=== PATIENT | female | born 1965 | race Caucasian/White ===

== ENCOUNTER 2023-11-23 18:34 | Emergency (ER) | payer OTHER, SELFPAY ==
[2023-11-23] VITALS (13 sets, daily range): BP systolic 135–159; BP diastolic 89–103; PULSE 84–98; RESP 11–29; TEMP 37.2; O2SAT 98–100
--- NOTE | ~2023-11-23 | XR_ITS ---
XR chest 2V Ordering provider: Carli May MD History: 58 years Female with . chest pain . Comparison: None. FINDINGS: MEDIASTINUM: The cardiac silhouette is not enlarged. LUNGS: No infiltrates, effusions or pneumothorax. OTHER: No free air under the diaphragm. Status post cholecystectomy. IMPRESSION: No acute cardiopulmonary pathology. Reviewed, dictated and finalized at location A.
--- NOTE | 2023-11-23 18:35 | ECG_ITS ---
[facility] [address] Test Date: 2023-11-23 Pat Name: Alycia Welch Department: Room: Gender: F Evaluation Manager: : 1965 Requested By: Carli Luoie Order Number: [id number] Linh MD: Ginna Blair M.D. Measurements Intervals [place] Rate: 86 P: 43 IA: 174 QRS: -2 QRSD: 81 T: 40 QT: 352 QTc: 423 Interpretive Statements SINUS RHYTHM No previous ECG available for comparison Electronically Signed On 11-24-2023 13:35:47 CDT by Ginna Blair M.D.
--- NOTE | 2023-11-23 18:37 | ED.CHESTPAIN ---
HPI - Chest Pain General Chief Complaint: Chest Pain Stated Complaint: chest pain Time Seen by Provider: 11/23/23 18:37 Source: patient and family Mode of arrival: ambulatory Limitations: no limitations History of Present Illness HPI narrative: Patient presents with left sided chest pain and shortness of breath occurring last night. Patient states over the past day the pain got better. Both arms were hurting and then just the left arm. She took Tylenol but it didn't help. She describes it as a heaviness. No family history of PA <65 yo. Occasionally smoked in her 20s but not since. No diagnosis of HLD; takes a statin for a diagnosis of fatty liver. She does not know if she was diaphoretic as she is perimenopausal and often has these flashes. No cough or fever. At home her BP was as high as the 150s/100s. She is not on medication for hypertension. She has had a mild headache; it was more severe 3 weeks ago. 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 No LE edema. Related Data Allergies Allergy/AdvReac Type Severity Reaction Status Date / Time latex AdvReac Mild Rash Verified 11/23/23 18:44 [facility] Past Medical History Medical History (Updated 11/25/23 @ 10:55 by Carli May MD) Fatty liver Prediabetes diet controlled Family History Family History (Updated 11/25/23 @ 10:57 by Carli May MD) Sibling Pulmonary embolism Sibling Pulmonary embolism Father Hypertension Social History Social History (Updated 11/25/23 @ 10:55 by Carli May MD) Smoking status: Former smoker Additional smoking assessment comments: light, occasionally while in her 20s Exam Narrative: GENERAL: Well-appearing, well-nourished, and in no acute distress. HEAD: Normocephalic, atraumatic. EYES: Non injected, non icteric ENT: Nares clear, no rhinorrhea or epistaxis. NECK: Supple. CHEST: Speaking in full sentences. No respiratory distress. Lungs clear to auscultation bilaterally. HEART: Regular rate and rhythm. . ABDOMEN: Soft, nondistended. EXTREMITIES: Normal range of motion. No lower extremity edema. SKIN: Warm, dry, no rash. NEURO: No focal deficits. Alert and oriented x3. PSYCH: Normal mood and affect. Course Vital Signs Vital signs: Vital Signs Temperature 99 F 11/23/23 18:37 Pulse Rate 86 11/23/23 18:37 Respiratory Rate 16 11/23/23 18:37 Blood Pressure 159/103 H 11/23/23 18:37 Pulse Oximetry 100 11/23/23 18:37 Oxygen Delivery Room Air 11/23/23 18:37 Temperature 99 F 11/23/23 18:37 Pulse Rate 90 11/23/23 20:25 Respiratory Rate 18 11/23/23 20:25 Blood Pressure 138/89 11/23/23 20:25 Pulse Oximetry 99 11/23/23 20:25 Oxygen Delivery Room Air 11/23/23 18:45 MDM - Chest Pain MDM Narrative Medical decision making narrative: Patient presents with CP and SOB. In the ED she if afebrile with VS notable for HTN. Symptoms have been going on since last night so will not need to obtain 2 troponins. HEART SCORE History 2 highly suspicious 1 moderately suspicious 0 slightly suspicious History score [address] depression/elevation not due to LBBB, LVH, or digoxin [address] depression but LBBB, LVH, nonspecific repolarization changes 0 normal ECG score 0 Age 2 >/= 65 1 45-64 0 <45 Age score 1 Risk factors (HTN, hypercholesterolemia, DM, obesity with BMI >30, current smoker or cessation </=3mo), positive fam hx with parent or sibling with CVD before age 65, atherosclerotic disease (prior PA, PCI/CABG, CVA/TIA, or peripheral arterial disease) 2 >/= 3 risk factors or history of atherosclerotic dz 1 - 1-2 risk factors (HTN) 0 no known risk factors Risk factor score 1 Initial Troponin 2 >3 times normal limit 1 1-3 times normal limit 0 less than or equal to normal limit Troponin score 0 Total HEART Score 3 HTN resolves.
[2023-11-23 18:54] LABS: Basophils Percent Auto 0.6 % (0.2-1.2); Eosinophils Absolute Auto 0.1 K/mm3 (0-0.3); Eosinophils Percent Auto 2.5 % (0-4.4); Hematocrit 38.5 % (37.0-47.0); Hemoglobin 12.5 g/dL (12.0-15.0); Immature Granulocyte Absolute 0.02 K/mm3 (0.00-0.031); Immature Granulocyte Percent A 0.4 % (0-0.5); Lymphocytes Absolute Auto 2.75 K/mm3 (0.9-3.2); Lymphocytes Percent Auto 52.8 % (18.3-44.2); Mean Corpuscular HGB Conc 32.5 g/dl (32-36); Mean Corpuscular Hemoglobin 30.3 pg (26-34); Mean Corpuscular Volume 93.4 fl (80-100); Mean Platelet Volume 9.1 fl (7.4-10.4); Monocytes Absolute Auto 0.7 K/mm3 (0.1-0.6); Monocytes Percent Auto 13.1 % (2.6-8.5); Neutrophils Absolute Auto 1.6 K/mm3 (1.3-6.7); Neutrophils Percent Auto 30.6 % (45.5-73.1); Platelet Count Result 257 k/mm3 (150-375); Red Blood Count 4.12 M/mm3 (4.2-5.4); Red Cell Distribution Width 12.5 % (11.5-14.5); White Blood Count 5.2 K/mm3 (4.5-10.0)
[2023-11-23 19:05] LABS: Alanine Aminotransferase 10 U/L (6-35); Albumin Level 4.6 g/dL (3.5-5.1); Alkaline Phosphatase 63 U/L (38-126); Anion Gap 6 mmol/L (4-12); Aspartate Amino Transferase 23 U/L (14-36); Bilirubin,Total 0.6 mg/dL (0.2-1.3); Blood Urea Nitrogen 22 mg/dL (7-17); Calcium 8.7 mg/dL (8.4-10.2); Carbon Dioxide 28 mmol/L (22-30); Chloride 106 mmol/L (98-107); Estimated CRCL calculation 52 ml/min; Estimated Glomerular Filt Rate > 60; Glucose 100 mg/dL (65-110); Lipase 130 U/L (23-300); Potassium 3.7 mmol/L (3.4-5.0); Sodium 140 mmol/L (137-145)
[2023-11-23 19:17] LABS: Troponin I < 0.012 ng/mL (0.000-0.034)
[2023-11-23 19:22] LABS: INR 1.1; Prothrombin Time 14.6 Seconds (11.1-14.7)
[2023-11-23 19:23] LABS: Partial Thromboplastin Time 23.1 Seconds (22.3-36.8)
[2023-11-23] MEDS: ACETAMINOPHEN 500 MG TABLET 1000 MG PO (19:35)
[2023-11-23 19:37] LABS: D Dimer 0.28 ug/mL (<0.48)
== END 2023-11-23 20:27 | disposition home or self-care (01) ==
PROVIDERS: Emergency Provider Student in an Organized Health Care Education/Training Program
DX: R07.9 Chest pain, unspecified (principal)
CPT/HCPCS: 36415; 71046; 80053; 83690; 84484; 85025; 85380; 85610; 85730; 93005; 99284; A9270

== ENCOUNTER 2024-01-21 18:17 | Emergency (ER) | payer OTHER, SELFPAY ==
[2024-01-21] VITALS (11 sets, daily range): BP systolic 108–125; BP diastolic 79–83; PULSE 92–108; RESP 10–23; TEMP 37.2; O2SAT 95–100
--- NOTE | ~2024-01-21 | XR_ITS ---
XR chest 2V DATE: 01/21/2024 19:39 INDICATION: Cough, fever, congestion TECHNIQUE: PA and lateral views COMPARISON: 11/23/2023 PA and lateral chest FINDINGS: Normal heart size. No hilar or mediastinal enlargement. No pulmonary infiltrate or consolid ation, pleural effusion or pulmonary vascular congestion or pneumothorax is detected. Minimal thoracic dextroscoliosis. Status post cholecystectomy. IMPRESSION: No active cardiopulmonary disease Reviewed, dictated and finalized at location J.
--- NOTE | 2024-01-21 19:12 | ECG_ITS ---
Test Date: 2024-01-21 19:49:49 Measurements Intervals [place] Rate: 97 P: 38 NV: 175 QRS: 1 QRSD: 79 T: 34 QT: 336 QTc: 428 Interpretive Statements SINUS RHYTHM NORMAL ELECTROCARDIOGRAM Compared to ECG 11/23/2023 18:42:45 No significant changes Electronically Signed On 01-22-2024 09:02:06 CDT by Jose Villeda M.D.
--- NOTE | 2024-01-21 19:19 | PC.NURSE ---
Report received from MALACHI Lynn. Assumed care of patient at this time.
[2024-01-21 19:28] LABS: Hematocrit 38.3 % (37.0-47.0); Hemoglobin 12.5 g/dL (12.0-15.0); Mean Corpuscular HGB Conc 32.6 g/dl (32-36); Mean Corpuscular Hemoglobin 30.9 pg (26-34); Mean Corpuscular Volume 94.8 fl (80-100); Mean Platelet Volume 9.3 fl (7.4-10.4); Platelet Count Result 219 k/mm3 (150-375); Red Blood Count 4.04 M/mm3 (4.2-5.4); Red Cell Distribution Width 13.1 % (11.5-14.5)
--- NOTE | 2024-01-21 19:37 | ED.GENADULT ---
HPI - General Adult General Chief complaint: Fever Stated complaint: fever Time Seen by Provider: 01/21/24 18:54 History of Present Illness HPI narrative: Alycia Welch is a 58 y/o female who presents with reports of having fever/ nasal congestion/ productive cough / chest pain with cough / headache for the past 2-3 days She states she had body aches and had a hard time sleeping last night Related Data Allergies Allergy/AdvReac Type Severity Reaction Status Date / Time latex AdvReac Mild Rash Verified 01/21/24 20:45 Review of Systems Review of Systems: All systems reviewed & are unremarkable except as noted in HPI and below PMFSH Past Medical History Medical History Fatty liver Prediabetes diet controlled Family History Family History Sibling Pulmonary embolism Sibling Pulmonary embolism Father Hypertension Social History Social History Smoking status: Former smoker Additional smoking assessment comments: light, occasionally while in her 20s Exam Narrative: GENERAL: Well-appearing, well-nourished, and in no acute distress. HEAD: Normocephalic, atraumatic. EYES: PERRLA and EOMI. ENT: Nares clear, no rhinorrhea or epistaxis. Mucous membranes moist. NECK: Supple. No adenopathy or masses. No carotid bruits or JVD CHEST: Clear to auscultation. No respiratory distress. No wheezes rales or rhonchi HEART: Regular rate and rhythm. No murmur heard. Normal peripheral pulses. ABDOMEN: Soft, nontender, nondistended, normal active bowel sounds. EXTREMITIES: Normal range of motion. No edema. SKIN: Warm, dry, no rash. NEURO: No focal deficits. Alert and oriented x3. PSYCH: Normal mood and affect. Course Vital Signs Vital signs: Vital Signs Temperature 37.2 C 01/21/24 18:21 Pulse Rate 98 01/21/24 18:21 Respiratory Rate 16 01/21/24 18:21 Blood Pressure 125/81 01/21/24 18:21 Pulse Oximetry 100 01/21/24 18:21 Temperature 37.2 C 01/21/24 18:21 Pulse Rate 101 H 01/21/24 20:44 Respiratory Rate 23 H 01/21/24 20:44 Blood Pressure 120/79 01/21/24 20:44 Pulse Oximetry 100 01/21/24 20:44 Medical Decision Making [facility] Narrative Medical decision making narrative: 58 y/o presents wtih URI symptoms of fever/ headache/ cough/ nasal congestion / body aches for the past 2-3 days Concern for : pneumonia/ cardiac ischemia / dehydration / Viral syndrome Plan to check labs/ uri swabs / ekg / trop/ chest xr and treat her with IV fluids Toradol/ Tylenol CBC - WBC 4.0 CMP- BUN 21, Calcium 8.3 UA- Glucose 3+, Ketones trace, Blood 2+ URI swab- COVID Positive Trop- Negative EKG- Sinus rhythm Chest xr - No active cardiopulmonary disease Patient re-evaluted and feeling better updated on results of being Covid + Plan to d/c home with symptomatic treatment Tylenol/ Motrin Push oral hydration Rest Follow up with PCP in 1 week Strict return precautions provided. Medical Records Medical records reviewed: Yes I reviewed the external patient's medical records. Vital Signs Vital Signs: Vital Signs Temperature 37.2 C 01/21/24 18:21 Pulse Rate 98 01/21/24 18:21 Respiratory Rate 16 01/21/24 18:21 Blood Pressure 125/81 01/21/24 18:21 Pulse Oximetry 100 01/21/24 18:21 Temperature 37.2 C 01/21/24 18:21 Pulse Rate 101 H 01/21/24 20:44 Respiratory Rate 23 H 01/21/24 20:44 Blood Pressure 120/79 01/21/24 20:44 Pulse Oximetry 100 01/21/24 20:44 Vitals reviewed by me. Lab Data Lab results reviewed: Yes I reviewed the patient's lab results. 01/21/24 19:19 01/21/24 19:19 Labs: Lab Results 01/21/24 01/21/24 01/21/24 Range/Units 19:18 19:19 19:19 WBC 4.0 L (4.5-10.0) K/mm3 RBC 4.04 L (4.2-5.4) M/mm3 Hgb 12.5 (12.0-15.0) g/
[2024-01-21 19:38] LABS: Alanine Aminotransferase 13 U/L (6-35); Albumin Level 4.5 g/dL (3.5-5.1); Alkaline Phosphatase 70 U/L (38-126); Anion Gap 11 mmol/L (4-12); Aspartate Amino Transferase 30 U/L (14-36); Bilirubin,Total 0.6 mg/dL (0.2-1.3); Blood Urea Nitrogen 21 mg/dL (7-17); Calcium 8.3 mg/dL (8.4-10.2); Carbon Dioxide 23 mmol/L (22-30); Chloride 103 mmol/L (98-107); Estimated CRCL calculation 45 ml/min; Estimated Glomerular Filt Rate > 60; Glucose 76 mg/dL (65-110); Potassium 3.9 mmol/L (3.4-5.0); Sodium 137 mmol/L (137-145)
[2024-01-21 19:48] LABS: Band Neutrophils Percent 1 % (0-6); Eosinophils Absolute Manual 0.08 K/mm3 (0.02-0.50); Eosinophils Percent Manual 2 % (0-4); Lymphocytes Absolute Manual 1.52 K/mm3 (1.1-4.5); Monocytes Percent Manual 15 % (3-9); Neutrophils Percent Manual 44 % (46-73); Platelet Estimate Adequate (Adequate); Schistocytes None Seen; Total Cells Counted 100
[2024-01-21 19:50] LABS: Troponin I < 0.012 ng/mL (0.000-0.034)
[2024-01-21 19:58] LABS: Add Urine Microscopic? YES; Appearance Urine Clear (Clear); Bacteria Urine None Seen /hpf; Bilirubin Urine Negative (Negative); Blood Urine 2+ (Negative); Color Urine Yellow (Yellow); Glucose Urine UA 3+ mg/dL (Negative); Ketones Urine Trace mg/dL (Negative); Leukocyte Esterase Ur Negative LEU/UL (Negative); Nitrate Urine Negative (Negative); Non Pathogenic Casts 0-2; Protein Urine Negative (Negative); Specific Grav Ur 1.014 (1.001-1.035); Squamous Epithelial Cell Urine None Seen /hpf (Few); Urobilinogen Urine 0.2 mg/dL (<2.0); WBC Urine 0-5 /hpf (0-3)
[2024-01-21 20:04] LABS: Influenza A QL RT-PCR Negative (Negative); Influenza B QL RT-PCR Negative (Negative); RSV RNA, RT-PCR Negative (Negative); SARS-CoV-2 RNA PCR Positive (Negative)
[2024-01-21] MEDS: SODIUM CHLORIDE 0.9% IV 1,000 ML 999 ML IV CONT (20:43)
[2024-01-21] MEDS: ACETAMINOPHEN 500 MG TABLET 1000 MG PO (20:44)
[2024-01-21] MEDS: KETOROLAC 30 MG/ML VIAL (*BKC) IV PUSH (20:44)
== END 2024-01-21 22:40 | disposition home or self-care (01) ==
PROVIDERS: Emergency Medicine; Emergency Provider Nurse Practitioner Family
DX: U07.1 COVID-19 (principal); R73.03 Prediabetes; Z87.891 Personal history of nicotine dependence
CPT/HCPCS: 36415; 71046; 80053; 81001; 84484; 85025; 87637; 93005; 96361; 96374; 99284; A9270; J1885; J7030

== ENCOUNTER 2024-02-20 00:02 | Emergency (ER) | payer OTHER, SELFPAY ==
--- NOTE | ~2024-02-20 | CT_ITS ---
Non-contrast CT scan of the Abdomen and Pelvis Clinical indication: Right flank pain Technique: 2.5 mm axial scans were obtained through the abdomen and pelvis without intravenous or or al contrast. Dose reduction technique was used on this scan by utilizing automated exposure control a nd iterative reconstruction technique. The dose-length product (DLP) was 209.49 mGy-cm. Findings: Images through the lung bases reveal no abnormalities. There is no evidence of renal or ureteral calculi. The kidneys and the ureters are nondilated. There is a 1.3 cm exophytic lesion at the left upper renal pole (axial image 63), indeterminate. The liver, spleen, pancreas, and adrenals appear normal. Cholecystectomy clips are present. There is no aortic aneurysm. There is no evidence of bowel obstruction. Images through the pelvis were performed. There is no evidence of ascites or lymphadenopathy. Urinary bladder unremarkable. 2.5 cm left ovarian cyst present. No other adnexal mass seen. Impression: 2.5 cm left ovarian cyst. 1.3 cm exophytic medial left upper pole renal lesion, indeterminate by Hounsfield units. Recommend ul trasound or MR to evaluate for cystic versus small solid lesion. Reviewed, dictated and finalized at [facility]. Impression: 2.5 cm left ovarian cyst. 1.3 cm exophytic medial left upper pole renal lesion, indeterminate by Hounsfie ld units. Recommend ultrasound or MR to evaluate for cystic versus small solid lesion.
[2024-02-20 00:25] VITALS: BP 119/88; PULSE 87; RESP 20; TEMP 36.7; O2SAT 95
--- NOTE | 2024-02-20 00:39 | ECG_ITS ---
Test Date: 2024-02-20 01:38:47 Measurements Intervals [place] Rate: 61 P: 50 WV: 210 QRS: -1 QRSD: 80 T: 39 QT: 416 QTc: 419 Interpretive Statements SINUS RHYTHM WITH FIRST DEGREE AV BLOCK VOLTAGE CRITERIA FOR LVH BORDERLINE ECG Compared to ECG 01/21/2024 19:49:49 First degree AV block now present Electronically Signed On 02-20-2024 07:39:28 CDT by Frankie Morgan D.O.
[2024-02-20] MEDS: ONDANSETRON INJ 4 MG/2 ML VIAL IV PUSH (00:53)
[2024-02-20] MEDS: HYDROmorphone HCL INJ (*CRX) 1 MG/ML SYR 0.5 MG IV PUSH (00:53)
[2024-02-20] MEDS: KETOROLAC 15 MG/ML VIAL (*BKC) IV PUSH (00:53)
[2024-02-20] MEDS: SODIUM CHLORIDE 0.9% IV 1,000 ML 999 ML IV CONT (00:53)
[2024-02-20 01:02] LABS: Basophils Absolute Auto 0.1 K/mm3 (0.0-0.1); Eosinophils Absolute Auto 0.3 K/mm3 (0-0.3); Eosinophils Percent Auto 4.8 % (0-4.4); Hematocrit 38.2 % (37.0-47.0); Hemoglobin 12.6 g/dL (12.0-15.0); Immature Granulocyte Absolute 0.01 K/mm3 (0.00-0.031); Immature Granulocyte Percent A 0.2 % (0-0.5); Lymphocytes Absolute Auto 3.14 K/mm3 (0.9-3.2); Mean Corpuscular Volume 93.9 fl (80-100); Mean Platelet Volume 9.2 fl (7.4-10.4); Monocytes Absolute Auto 0.6 K/mm3 (0.1-0.6); Monocytes Percent Auto 12.2 % (2.6-8.5); Neutrophils Absolute Auto 1.1 K/mm3 (1.3-6.7); Neutrophils Percent Auto 21.8 % (45.5-73.1); Platelet Count Result 256 k/mm3 (150-375); Red Blood Count 4.07 M/mm3 (4.2-5.4); Red Cell Distribution Width 13.2 % (11.5-14.5); White Blood Count 5.2 K/mm3 (4.5-10.0)
[2024-02-20 01:13] LABS: Alanine Aminotransferase 11 U/L (6-35); Albumin Level 4.3 g/dL (3.5-5.1); Alkaline Phosphatase 81 U/L (38-126); Anion Gap 9 mmol/L (4-12); Aspartate Amino Transferase 27 U/L (14-36); Bilirubin,Total 0.3 mg/dL (0.2-1.3); Blood Urea Nitrogen 27 mg/dL (7-17); Calcium 9.3 mg/dL (8.4-10.2); Carbon Dioxide 27 mmol/L (22-30); Chloride 103 mmol/L (98-107); Estimated CRCL calculation 45 ml/min; Estimated Glomerular Filt Rate > 60; Glucose 98 mg/dL (65-110); Lipase 214 U/L (23-300); Potassium 3.6 mmol/L (3.4-5.0); Sodium 139 mmol/L (137-145)
[2024-02-20 03:22] LABS: Bacteria Urine None Seen /hpf; Non Pathogenic Casts 0-2; Squamous Epithelial Cell Urine None Seen /hpf (Few); WBC Urine 0-5 /hpf (0-3)
[2024-02-20 03:30] LABS: Add Urine Microscopic? YES; Appearance Urine Clear (Clear); Color Urine Yellow (Yellow); pH Urine 6.5 (5.0-9.0)
[2024-02-20 03:31] LABS: Bilirubin Urine Negative (Negative); Blood Urine 1+ (Negative); Glucose Urine UA 3+ mg/dL (Negative); Ketones Urine Trace mg/dL (Negative); Nitrate Urine Negative (Negative); Protein Urine Negative (Negative); Urobilinogen Urine 0.2 mg/dL (<2.0)
[2024-02-20 03:32] LABS: Leukocyte Esterase Ur Negative LEU/UL (Negative)
--- NOTE | 2024-02-20 03:44 | ED.GENADULT ---
HPI - General Adult General Chief complaint: Urogenital-Female Stated complaint: RIGHT FLANK PAIN Time Seen by Provider: 02/20/24 00:09 History of Present Illness HPI narrative: This is a 58-year-old female presenting ED with chief complaint of right flank pain. Starting yesterday the patient developed a sharp 10 out 10 crampy pain on right side. It comes for several seconds at a time and then relaxes. She has never had pain like this before and there are no alleviating or exacerbating factors. It is associated with nausea but no vomiting. She believes that she has had some dysuria but is unsure. She denies fevers chills chest pain difficulty breathing or abdominal pain. No vaginal bleeding or rectal bleeding. Related Data Allergies Allergy/AdvReac Type Severity Reaction Status Date / Time latex AdvReac Mild Rash Verified 02/20/24 00:34 [facility] Past Medical History Medical History Fatty liver Prediabetes diet controlled Family History Family History Sibling Pulmonary embolism Sibling Pulmonary embolism Father Hypertension Social History Social History Smoking status: Former smoker Additional smoking assessment comments: light, occasionally while in her 20s Exam Narrative: APPEARANCE: No apparent distress. Head: atraumatic. EYES: EOMI, NOSE: Atraumatic NECK: Trachea midline RESPIRATORY: No increased rate of breathing CTAB CARDIOVASCULAR: RRR, ABDOMINAL: Non-distended Soft nontender no guarding or rebound no CVA tenderness MUSCULOSKELETAl: No obvious deformities NEURO: Alert. Moving 4/4 extremities SKIN:: Warm, dry. Normal color PSYCHIATRIC: Normal affect Course Vital Signs Vital signs: Vital Signs Temperature 98.1 F 02/20/24 00:25 Pulse Rate 87 02/20/24 00:25 Respiratory Rate 20 02/20/24 00:25 Blood Pressure 119/88 02/20/24 00:25 Pulse Oximetry 95 02/20/24 00:25 Oxygen Delivery Room Air 02/20/24 00:25 Temperature 98.1 F 02/20/24 00:25 Pulse Rate 87 02/20/24 00:25 Respiratory Rate 20 02/20/24 00:25 Blood Pressure 119/88 02/20/24 00:25 Pulse Oximetry 95 02/20/24 00:25 Oxygen Delivery Room Air 02/20/24 00:25 Medical Decision Making MDM Narrative Medical decision making narrative: -Course: 58-year-old female presenting with intermittent right flank pain. Workup here was unremarkable outside of some minor blood in her urine. When the patient urinated here she believes that she passed a kidney stone. Since then she has been pain-free. This time patient be discharged home with pain medication. Given return precautions and primary care follow-up. -DDX includes but is not limited to: Kidney stone, muscle spasm, appendicitis, colitis, gastroenteritis, cholecystitis -Co-morbidities complicating care: Pro, prediabetes -Independent interpretation of studies: CT unremarkable laboratory studies reviewed urine with 6-5 red blood cells -Interventions: Toradol, Dilaudid, Zofran, normal saline -Shared decision making / Disposition: discharge -RX Motrin Tylenol Vital Signs Vital Signs: Vital Signs Temperature 98.1 F 02/20/24 00:25 Pulse Rate 87 02/20/24 00:25 Respiratory Rate 20 02/20/24 00:25 Blood Pressure 119/88 02/20/24 00:25 Pulse Oximetry 95 02/20/24 00:25 Oxygen Delivery Room Air 02/20/24 00:25 Temperature 98.1 F 02/20/24 00:25 Pulse Rate 87 02/20/24 00:25 Respiratory Rate 20 02/20/24 00:25 Blood Pressure 119/88 02/20/24 00:25 Pulse Oximetry 95 02/20/24 00:25 Oxygen Delivery Room Air 02/20/24 00:25 Lab Data 02/20/24 00:56 02/20/24 00:56 Labs: Lab Results 02/20/24 02/20/24 Range/Units 00:56 03:04 WBC 5.2 (4.5-10.0) K/mm3 RBC 4.07 L (4.2-5.4) M/mm3 Hgb 12.6 (12.
[2024-02-20 04:04] VITALS: BP 128/74; PULSE 81; RESP 15; O2SAT 100
== END 2024-02-20 04:05 | disposition home or self-care (01) ==
PROVIDERS: Emergency Provider Emergency Medicine
DX: R10.9 Unspecified abdominal pain (principal); Z87.891 Personal history of nicotine dependence
CPT/HCPCS: 36415; 74176; 80053; 81001; 83690; 85025; 93005; 96361; 96374; 96375; 99284; J1170; J1885; J2405; J7030

== ENCOUNTER 2024-08-04 11:33 | Emergency (ER) | payer OTHER, SELFPAY ==
--- NOTE | ~2024-08-04 | CT_ITS ---
CLINICAL INDICATION: Fall COMPARISON: 02/20/2024. TECHNIQUE: An enhanced CT of the abdomen and pelvis was performed utilizing multislice spiral [employer] ue reconstructed at 5 mm slice thickness. Coronal and sagittal reconstructions were performed. This CT examination was performed utilizing dose reduction techniques. DLP: 407 mGy-cm FINDINGS/OBSERVATIONS: Lung: The lungs are clear. The heart is of normal size, without pericardial effusion. Mediastinum: No pathologically enlarged or morphologically suspicious lymph nodes are identified within the spinal , bilateral axilla, within the soft tissues of the anterior chest wall. Soft tissues of the chest: Unremarkable. Bones of the chest: No acute fracture. No lytic or blastic lesions are identified. Liver: The liver enhances homogeneously and is not enlarged measuring 16 cm in longitudinal dimension. Gallbladder and biliary system: The gallbladder is surgically absent Pancreas: The pancreas enhances homogeneously, without ductal dilatation. Spleen: The spleen enhances homogeneously and is not enlarged measuring 4 cm in longitudinal dimensio n. Kidneys: The bilateral kidneys enhance symmetrically without hydronephrosis or renal calculi. Adrenal glands: Unremarkable. Gastrointestinal tract: Fecal stasis within the colon Appendix: The air-filled appendix is of normal caliber (axial series, images 174 through 186). Vasculature: No calcified atherosclerotic disease is present. No aneurysmal dilatation. Lymph nodes: Scattered nonpathologically enlarged lymph nodes within the root of the mesentery and deep in the pel vis. Pelvic structures: The bladder is minimally distended and otherwise unremarkable. The uterus is anteverted and anteflexed, and otherwise unremarkable. Body wall and musculoskeletal: No significant degenerative disease within the thoracic or lumbosacral spines. IMPRESSION: No cross-sectional imaging evidence to suggest the presence of acute traumatic injury. Reviewed, dictated and finalized at location A. IFIED NOVELL ADMINISTRATOR
--- NOTE | ~2024-08-04 | CT_ITS ---
EXAMINATION: CT brain wo con DATE: 08/04/2024 14:06 INDICATION: Trauma TECHNIQUE: Computed tomography (CT) of the head was performed without intravenous contrast. Sagittal and coronal reconstructions were performed. The mA was adjusted according to patient size. Iterative reconstruction technique was employed. The dose-length product was 605.33 mGy-cm. COMPARISON: None FINDINGS: No fracture. No acute intracranial hemorrhage, acute infarction or abnormal extra axial fluid collect ion. Ventricles are normal and symmetric. No mass/mass effect. The orbits, paranasal sinuses and mast oid air cells are normal. IMPRESSION: 1. Normal brain. No fracture or acute intracranial process. Reviewed, dictated and finalized at location A. LANCE DATA ENTRY
--- NOTE | ~2024-08-04 | CT_ITS ---
History: Fall PROCEDURE: CT cervical spine without intravenous contrast. COMPARISON: None TECHNIQUE: Multiple contiguous axial images of the cervical spine were performed without the administration of i ntravenous contrast. DLP: 133 mGy-cm FINDINGS: Straightening and slight reversal of the normal curvature of the cervical spine is identified, likely muscular in origin. No acute fractures are present. The bilateral lung apices are unremarkable. No soft tissue abnormality is present. The airway is patent. Impression: Straightening and slight reversal of the normal curvature of the cervical spine, likely muscular in o rigin. No acute fracture. Reviewed, dictated and finalized at location A. RAL PRE ARRANGEMENT SPECIALIST Impression: Straightening and slight reversal of the normal curvature of the cervical spine , likely muscular in origin. No acute fracture.
--- OUTSIDE RECORDS SUMMARY | 2024-08-04 11:34 | XMS_ITS | Data Portability ---
Author Organization [place] - [facility] [employer] Address [address] [place] [address] Assessment Encounter Date Assessment Date Assessment LastModified by Organization Details LastModified Time 07/18/2023 07/18/2023 BSE reviewed and recommended . Reviewed calcium needs, exercise, and prevention of osteoporosis . Reviewed menopausal signs and symptoms.Mammog alvaro recommended yearly . Reviewed that Colonoscopy recommended at age 50 or sooner with risk factors and then periodically thereafter [email or web address] Not available 07/11/2023 10:10:37 Plan of Treatment Reminders Order Date Submit Date Provider Last Modified By Organization Details Last Modified Time Details Appointments ANNUAL PM HEAD COOK 2024 01:30P M Mala Bills MD Not available Not available Not available Lab prolacti n, serum 2023 024 [email or web address] [facility] ([facility]) , [address], [place], [address], 08/10/2023 16:13:57 unlisted lab - nipple discharg e smear 2023 024 [facility] ([facility]) , [address], [place], [address], 08/15/2023 15:48:00 unlisted lab - nipple discharg e smear 2023 024 [facility] ([facility]) , [address], [place], [address], 08/15/2023 15:48:02 pap, LB + HR HPV + reflex HPV (16+18) 2023 024 CHRISTEN Not available 07/20/2023 18:10:56 BMP, serum or plasma 2023 024 [email or web address] 3 [facility] ([facility]) , [address], [place], [address], 07/25/2023 09:06:27 vitamin D, 25-hydro xy, total, serum 2023 024 [email or web address] 3 [facility] ([facility]) , [address], [place], [address], 07/25/2023 09:06:27 calcium, serum or plasma 2023 024 [email or web address] 3 [facility] ([facility]) , [address], [place], [address], 07/25/2023 09:06:28 glycohem oglobin, total, blood 2023 024 [email or web address] 3 [facility] ([facility]), [address], [place], [address], 07/25/2023 09:06:29 progeste karena, serum 2023 024 [email or web address] 3 [facility] ([facility]) , [address], [place], [address], 07/25/2023 09:06:28 hepatic function panel, serum 2023 024 [email or web address] 3 [facility] ([facility]) , [address], [place], [address], 07/25/2023 09:06:28 lipid panel, serum 2023 024 [email or web address] 3 [facility] ([facility]) , [address], [place], [address], 07/25/2023 09:06:28 CBC 2023 024 [email or web address] 3 [facility] ([facility]) , [address], [place], [address], 07/25/2023 09:06:28 FSH (follicl e-stimul ating hormone) , serum 2023 024 [email or web address] ([facility]) , [address], [place], [address], 07/25/2023 09:06:29 estradio l, serum 2023 024 [facility] 3 [facility] ([facility]) , [address], [place], [address], 07/25/2023 09:06:29 testoste karena, free + total, serum 2023 024 [email or web address] 3 [facility] ([facility]), [address], [place], [address], 07/25/2023 09:06:29 dihydrot estoster one (dht), serum 2023 024 [email or web address] 3 [facility] ([facility]), [address], [place], [address], 07/25/2023 09:06:29 Referral None recorded . Procedures None recorded . Surgeries None recorded . Imaging US, breast - bilatera l nipple d/c and breast tenderne ss 2023 024 [email or web address] [facility], [address] [place], [address], 10/25/2023 10:39:14 MAMMO, diagnost ic, tomosynt hesis, bilatera l - bilatera l nipple d/c and breast tenderne ss 2023 024 [email or web address] [facility], [address] [place], [address], 10/11/2023 16:26:13 US, transvag inal 2023 024 [email or web address] 10 Main Office, [address] [place] [address] , [place], [address], 07/21/2023 09:28:54 MAMMO, screenin g, tomosynt hesis, bilatera l - evaluate and treat protocol [address] (Mammography) , [address], [place], [address], 07/26/2023 07:05:25 US, breast, bilatera l - R92.2 dense breast tissue [address] (Mammography) , [address], [place], [address], 07/26/2023 07:05:25 bone density [address] [facility], [address] [place] [address], [address], 11/23/2023 08:44:44 US, pelvis 2022 023 [email or web address] 10 Main Office, [address], [place], [address], 09/16/2022 22:42:50 US, pelvis 2022 023 CHRISTEN Main Office, [address], [place], [address], 07/19/2022 09:42:14 Medication Orders Intraros a 6.5 mg vaginal insert 2023 024 [id number], [address], [place], [address], 07/18/2023 16:35:56 EstroGel 1.25 gram/act uation (0.06%) transder mal gel pump 2023 024 CHRISTEN [facility] In [facility], [facility], [place], [address], 08/10/2023 11:34:48 progeste karena microniz ed 200 mg capsule 2023 024 [facility] In [facility], [address], [place], [address], 07/18/2023 16:35:57 sildenaf il 25 mg tablet 2023 024 [facility] [id number] In [facility], [address], [place], [address], 07/18/2023 16:35:57 Patient TargetsNo targets recorded. Patient Instructions Encounter Date Encounter Id Patient Instructions Last Modified By Organization Details Last Modified Time 07/18/2023 [id number] prediabetes: instrucciones de cuidado - [prediabetes: care instructions] [email or web address] Not available 07/18/2023 16:35:47 Disminuci n de la libido femenina: Instrucciones de cuidado - [Decreased Female Libido: Care Instructions] [email or web address] Not available 07/18/2023 16:35:47 Put results on m y desk. [email or web address] Not available 07/18/2023 16:42:32 Reason for Referral None Reported. Results Created Date Observation Date Name Description Value Unit Range Abnormal Flag Note LastModifiedBy Organization Detail LastModifiedTime 07/14/19 23 07/15/2022 LIPID SCREE N (BASI C LIPID PROFI LE) cholesterol 215 mg/dL <200 high Not Available [facility] [employer] ([facility]) [address], [place], [address], 07/16/2022 00:42:51 07/14/19 23 07/15/2022 LIPID SCREE N (BASI C LIPID PROFI LE) HDL chol., direct 64 mg/dL >50 Not Available [facility] ([facility]) [address], [place], [address], 07/16/2022 00:42:51 07/14/19 23 07/15/2022 LIPID SCREE N (BASI C LIPID PROFI LE) triglyceride s 169 mg/dL <150 high Not Available [facility] [employer] ([facility]) [address], [place], [address], 07/16/2022 00:42:51 07/14/19 23 07/15/2022 LIPID SCREE N (BASI C LIPID PROFI LE) HDL % of cholesterol 30 % >14 Evalu ation : BELOW AVERA GE RISK Not Available [facility] ([facility] [employer]) [address], [place], [address], 07/16/2022 00:42:51 07/14/19 23 07/15/2022 LIPID SCREE N (BASI C LIPID PROFI LE) chol/HDL ratio 3.4 <5.8 Evalu ation : BELOW AVERA GE RISK Not Available [facility] [employer] ([facility] [employer]) [address], [place], [address], 07/16/2022 00:42:51 07/14/19 23 07/15/2022 LIPID SCREE N (BASI C LIPID PROFI LE) LDL/HDL ratio 1.83 <3.56 Not Available [facility] ([facility]) [address], [place], [address], 07/16/2022 00:42:51 07/14/19 23 07/15/2022 LIPID SCREE N (BASI C LIPID PROFI LE) LDL cholesterol 117 mg/dL <100 high Not Available [facility] ([facility]) [address], [place], [address], 07/16/2022 00:42:51 07/14/19 23 07/15/2022 LIPID SCREE N (BASI C LIPID PROFI LE) VLDL, calculated 34 mg/dL 7-32 high Not Available [facility] ([facility]) [address], [place], [address], 07/16/2022 00:42:51 07/14/19 23 07/15/2022 LIPID SCREE N (BASI C LIPID PROFI LE) non-HDL cholesterol 151 mg/dL <130 high Not Available [facility] ([facility]) [address], [place], [address], 07/16/2022 00:42:51 07/14/19 23 07/15/2022 CALCI UM, SERUM calcium 9.5 mg/dL 8.6-10 .4 Not Available [facility] ([facility]) [address], [place], [address], 07/16/2022 00:42:51 07/14/19 23 07/15/2022 CBC W/DIF F, PLATE LET CT. WBC 4.20 x10(3 )/uL 4.00-1 0.10 Not Available [facility] ([facility]) [address], [place], [address], 07/16/2022 00:42:52 07/14/19 23 07/15/2022 CBC W/DIF F, PLATE LET CT. RBC 4.23 x10(6 )/uL 3.58-5 .19 Not Available [facility] ([facility]) [address], [place], [address], 07/16/2022 00:42:52 07/14/19 23 07/15/2022 CBC W/DIF F, PLATE LET CT. HGB 13.1 g/dL 11.0-1 5.5 Not Available [facility] ([facility]) [address], [place], [address], 07/16/2022 00:42:52 07/14/19 23 07/15/2022 CBC W/DIF F, PLATE LET CT. HCT 39.4 % 31.5-4 4.8 Not Available [facility] ([facility]) [address], [place], [address], 07/16/2022 00:42:52 07/14/19 23 07/15/2022 CBC W/DIF F, PLATE LET CT. MCV 93.1 fL 78.0-9 8.0 Not Available [facility]) [address], [place], [address], 07/16/2022 00:42:52 07/14/19 23 07/15/2022 CBC W/DIF F, PLATE LET CT. MCH 31.0 pg 25.2-3 2.6 Not Available [facility] ([facility]) [address], [place], [address], 07/16/2022 00:42:52 07/14/19 23 07/15/2022 CBC W/DIF F, PLATE LET CT. MCHC 33.2 g/dL 31.0-3 4.7 Not Available [facility] ([facility]) [address], [place], [address], 07/16/2022 00:42:52 07/14/19 23 07/15/2022 CBC W/DIF F, PLATE LET CT. RDW 12.5 % 12.0-1 5.5 Not Available [facility] ([facility]) [address], [place], [address], 07/16/2022 00:42:52 07/14/19 23 07/15/2022 CBC W/DIF F, PLATE LET CT. polys 28.9 % 37.1-7 8.1 low Not Available [facility] ([facility]) [address], [place], [address], 07/16/2022 00:42:52 07/14/19 23 07/15/2022 CBC W/DIF F, PLATE LET CT. lymphs 52.6 % 13.7-5 0.9 high Not Available [facility] ([facility]) [address], [place], [address], 07/16/2022 00:42:52 07/14/19 23 07/15/2022 CBC W/DIF F, PLATE LET CT. monos 11.9 % 3.0-11 .9 Not Available [facility] ([facility]) [address], [place], [address], 07/16/2022 00:42:52 07/14/19 23 07/15/2022 CBC W/DIF F, PLATE LET CT. eos 5.7 % 0.0-5. 0 high Not Available [facility] ([facility]) [address], [place], [address], 07/16/2022 00:42:52 07/14/1907/15/2022 CBC W/DIF F, PLATE LET CT. basos 0.7 % 0.0-1. 0 Not Available [facility] ([facility]) [address], [place], [address], 07/16/2022 00:42:52 07/14/1907/15/2022 CBC W/DIF F, PLATE LET CT. immature granulocytes 0.2 % 0.0-1. 0 Not Available [facility] ([facility]) [address], [place], [address], 07/16/2022 00:42:52 07/14/1907/15/2022 CBC W/DIF F, PLATE LET CT. platelet count 273 x10(3 )/uL 140-42 5 Not Available [facility] ([facility] [employer]) [address], [place], [address], 07/16/2022 00:42:52 07/14/1907/15/2022 CBC W/DIF F, PLATE LET CT. MPV 10.2 fL 8.6-12 .1 Not Available [facility] ([facility] [employer]) [address], [place], [address], 07/16/2022 00:42:52 07/14/1907/15/2022 VITAM IN D, 25-HY DROXY , SERUM 25OH, vitamin D 86.8 NG/mL 32.0-1 00.0 VITAM IN D,25- OH TEST INFOR MATIO N Range (ng/m L) Sugge sted Inter preta tion <20.0 Defic ient 20.0- 31.9 Insuf ficie nt 32.0- 100.0 Suffi cient >100. 0 Possi ble Adver se Effec ts Not Available [facility] ([facility]) [address], [place], [address], 07/16/2022 00:42:52 07/14/19 23 07/15/2022 BASIC METAB OLIC PROFI LE (BMP) glucose 103 mg/dL 70-99 high Not Available [facility] ([facility]) [address], [place], [address], 07/16/2022 00:42:53 07/14/19 23 07/15/2022 BASIC METAB OLIC PROFI LE (BMP) sodium 141 mmol/ L 135-14 7 Not Available [facility] ([facility]) [address], [place], [address], 07/16/2022 00:42:53 07/14/19 23 07/15/2022 BASIC METAB OLIC PROFI LE (BMP) potassium 4.2 mmol/ L 3.5-5. 5 Not Available [facility] ([facility]) [address], [place], [address], 07/16/2022 00:42:53 07/14/19 23 07/15/2022 BASIC METAB OLIC PROFI LE (BMP) chloride 106 mmol/ L 96-108 Not Available [facility] ([facility]) [address], [place], [address], 07/16/2022 00:42:53 07/14/19 23 07/15/2022 BASIC METAB OLIC PROFI LE (BMP) CO2 26 mmol/ L 19-29 Not Available [facility] ([facility]) [address], [place], [address], 07/16/2022 00:42:53 07/14/19 23 07/15/2022 BASIC METAB OLIC PROFI LE (BMP) BUN 17 mg/dL 6-20 Not Available [facility] ([facility]) [address], [place], [address], 07/16/2022 00:42:53 07/14/19 23 07/15/2022 BASIC METAB OLIC PROFI LE (BMP) creatinine 0.87 mg/dL 0.49-1 .02 Not Available [facility] ([facility]) [address], [place], [address], 07/16/2022 00:42:53 07/14/19 23 07/15/2022 BASIC METAB OLIC PROFI LE (BMP) E-GFR 73 mL/mi n >or=60 Not Available [facility] ([facility]) [address], [place], [address], 07/16/2022 00:42:53 07/14/19 23 07/15/2022 BASIC METAB OLIC PROFI LE (BMP) E-GFR, 85 mL/mi n >or=60 Not Available [facility] ([facility]) [address], [place], [address], 07/16/2022 00:42:53 07/14/19 23 07/15/2022 BASIC METAB OLIC PROFI LE (BMP) BUN/creat ratio 19.5 ratio 10.0-2 8.0 Not Available [facility] ([facility]) [address], [place], [address], 07/16/2022 00:42:53 07/14/19 23 07/15/2022 BASIC METAB OLIC PROFI LE (BMP) calcium 9.5 mg/dL 8.6-10 .4 Not Available [facility] ([facility]) [address], [place], [address], 07/16/2022 00:42:53 07/14/19 23 07/15/2022 HEPAT IC FUNCT ION PANEL albumin 4.6 g/dL 3.5-5. 2 Not Available [facility] ([facility]) [address], [place], [address], 07/16/2022 00:42:53 07/14/19 23 07/15/2022 HEPAT IC FUNCT ION PANEL bilirubin, total 0.4 mg/dL <1.2 Not Available [facility] ([facility]) [address], [place], [address], 07/16/2022 00:42:53 07/14/19 23 07/15/2022 HEPAT IC FUNCT ION PANEL bilirubin, direct <0.2 mg/dL <0.4 Not Available [facility] ([facility]) [address], [place], [address], 07/16/2022 00:42:53 07/14/19 23 07/15/2022 HEPAT IC FUNCT ION PANEL total protein 7.6 g/dL 5.9-8. 4 Not Available [facility] ([employer] [employer]) [address], [place], [address], 07/16/2022 00:42:53 07/14/19 23 07/15/2022 HEPAT IC FUNCT ION PANEL AST 17 U/L <32 Not Available [facility] ([facility]) [address], [place], [address], 07/16/2022 00:42:53 07/14/19 23 07/15/2022 HEPAT IC FUNCT ION PANEL ALT 7 U/L <33 Not Available [facility] ([facility]) [address], [place], [address], 07/16/2022 00:42:53 07/14/19 23 07/15/2022 HEPAT IC FUNCT ION PANEL alk phos 51 U/L 40-156 Not Available [facility] ([facility]) [address], [place], [address], 07/16/2022 00:42:53 07/14/19 23 07/15/2022 HEPAT IC FUNCT ION PANEL A/G ratio 1.5 ratio 1.1-2. 9 Not Available [facility] ([facility]) [address], [place], [address], 07/16/2022 00:42:53 07/14/19 23 07/15/2022 HEPAT IC FUNCT ION PANEL globulin 3.0 g/dL 1.7-3. 7 Not Available [facility] ([facility]) [address], [place], [address], 07/16/2022 00:42:53 07/14/19 23 07/15/2022 HEPAT IC FUNCT ION PANEL bilirubin, indirect Can't Calc mg/dL 0.1-1. 0 Can't Calc: One or more compo nents was outsi de the measu rable range . We are unabl e to calcu late. Not Available [facility] ([facility]) [address], [place], [address], 07/16/2022 00:42:53 07/14/19 23 07/15/2022 TSH W/ REFLE X TO FREE T4 TSH w/rfx to free T4 1.280 uIU/m L 0.282- 4.000 Not Available [facility] ([facility]) [address], [place], [address], 07/16/2022 00:42:54 07/14/19 23 07/16/2022 PAP + HPV DNA HIGH RISK 16, 18, NON 16/18 ([facility] [place] ) HPV high risk DNA (non 16/18) Not Detect ed not detect ed Not Available [facility] ([facility]) [address], [place], [address], 07/20/2022 09:40:05 07/14/19 23 07/16/2022 PAP + HPV DNA HIGH RISK 16, 18, NON 16/18 ([facility] [place] ) HPV high risk DNA type 18 Not Detect ed not detect ed Not Available [facility] ([facility]) [address], [place], [address], 07/20/2022 09:40:05 07/14/19 23 07/16/2022 PAP + HPV DNA HIGH RISK 16, 18, NON 16/18 ([facility] [place] ) HPV high risk DNA type 16 Not Detect ed not detect ed HPV High Risk DNA (Non 16/18 ) (1,2, 3,4,5 ) HPV High Risk DNA Type 18 (1,2, 3,4,5 ) HPV High Risk DNA Type 16 (1,2, 3,4,5 ) (1) The [place] (R) HPV test is FDA-c leare d for ThinP rep(R ) speci mens and detec ts genom ic HPV DNA in the polym orphi c L1 regio n in 14 subty pes: Type 16, Type 18, and other high risk types (31,3 3,35, 39,45 ,51,5 2,56, 58,59 ,66,6 8). The test has been modif ied and valid ated for use in SureP ath(T M) speci mens. (2) HPV types 16 and/o r 18 that were Not Detec analia were undet ectab le or below the pre-s et thres hold. (3) The non-r epeat rate for HPV genot yping assay s varie s from 5 to 15%. In the NILM cytol ogy categ ory, there is a low posit anuradha predi ctive value (PPV = 15-20 %) for CIN2+ with a posit anuradha high risk HPV resul t. (4) This test was evalu ated and its perfo rmanc e dylan cteri stics deter mined by [facility]. It has not been clear ed or appro ruben by the U.S. Food and Drug Admin istra tion. The FDA has deter mined that such clear ance or appro quincy is not neces brian. [facility] is certi fied under the Clini irina Labor atory Impro vemen t Amend ments of 1987 (CLIA ) as quali fied to perfo rm high compl exity clini irina testi ng. This test is used for clini irina purpo ses. It shoul d not be regar ded as inves tigat ional or for resea rch. (5) Resul ts shoul d be inter prete d toget her with past and curre nt clini irina and labor atory data. Not Available [facility] ([facility]) [address], [place], [address], 07/20/2022 09:40:05 07/14/19 23 07/20/2022 PAP + HPV DNA HIGH RISK 16, 18, NON 16/18 ([facility] [place] ) Pap, liquid-based NILM nilm DIAGN OSIS: Negat anuradha for intra epith elial lesio n or malig barbie Funga l organ isms morph ologi amy consi stent with Dede da speci es. ADEQU ACY: Satis facto ry for evalu ation / Endoc ervic al/tr ansfo rmati on zone compo nent prese nt. COMME NT: This Pap smear was scree larry with the jack tance of the Holog ic ThinP rep(T M) Imagi ng Syste m and scree larry by a cytot echno logis t. SPECI MEN SOURC E: Pap + HPV DNA High Risk 16, 18, Non 16/18 ([place] ), CERVI IRINA CLINI IRINA INFOR MATIO N: LMP: N/A Provi ded Diagn osis Codes : Z00.0 0,Z01 .419 Cervi covag inal cytol ogy shoul d be consi dered a scree judit proce dure subje ct to false negat collins and false posit collins. Resul ts are more relia ble when a satis facto ry sampl e is obtai larry on a regul ar repet itive basis , and shoul d be inter prete d toget her with past and curre nt clini irina data. ELECT AKHIL ROSEANNE JOSEFINA D BY: Scree larry By: Faviola Howe ez, CT (ASCP ) Case Elect akhil roseanne Josefina d 07/20 Cytol ogy scree judit and inter preta tion perfo rmed at: [facility] [address] [facility] [address] [facility], [address] [place] [address] . Not Available [facility] ([facility]) [address], [place], [address], 07/20/2022 09:40:05 07/18/19 24 07/20/2023 PAP + HPV DNA HIGH RISK 16, 18, NON 16/18 ([facility] [facility] [place] ) Pap, liquid-based NILM nilm DIAGN OSIS: Negat anuradha for intra epith elial lesio n or malig barbie ADEQU ACY: Satis facto ry for evalu ation / Trans forma tion zone compo nent canno t be adequ ately evalu ated due to atrop hic smear . COMME NT: This Pap smear was scree larry with the jack tance of the Holog ic ThinP rep(T M) Imagi ng Syste m and scree larry by a cytot john quinones. SPECI MEN SOURC E: Pap + HPV DNA High Risk 16, 18, Non 16/18 ([place] ), CERVI IRINA CLINI IRINA INFOR JOSI N: LMP: .... Provi ded Diagn osis Codes : N95.9 ,R73. 01,Z0 0.00, Z01.4 19 Cervi covag inal cytol ogy shoul d be consi dered a scree judit proce dure subje ct to false negat collins and false posit collins. Resul ts are more relia ble when a satis facto ry sampl e is obtai larry on a regul ar repet itive basis , and shoul d be inter prete d toget her with past and curre nt clini irina data. ELECT AKHIL Salmon BY: Scree larry By: Halima rao, CT (ASCP ) Case Elect nikolaiedgard salmon 07/20 Not Available [facility] ([facility]) [address], [place], [address], 07/20/2023 18:10:56 07/18/19 24 07/20/2023 PAP + HPV DNA HIGH RISK 16, 18, NON 16/18 ([place] ) HPV high risk DNA (non 16/18) Not Detect ed not detect ed Not Available [facility] ([facility]) [address], [place], [address], 07/20/2023 18:10:56 07/18/19 24 07/20/2023 PAP + HPV DNA HIGH RISK 16, 18, NON 16/18 ([place] ) HPV high risk DNA type 18 Not Detect ed not detect ed Not Available [facility] ([facility]) [address], [place], [address], 07/20/2023 18:10:56 07/18/19 24 07/20/2023 PAP + HPV DNA HIGH RISK 16, 18, NON 16/18 ([place] ) HPV high risk DNA type 16 Not Detect ed not detect ed HPV High Risk DNA (Non 16/18 ) (1,2, 3,4,5 ) HPV High Risk DNA Type 18 (1,2, 3,4,5 ) HPV High Risk DNA Type 16 (1,2, 3,4,5 ) (1) The [place] (R) HPV test is FDA-c leare d for ThinP rep(R ) speci mens and detec ts genom ic HPV DNA in the polym orphi c L1 regio n in 14 subty pes: Type 16, Type 18, and other high risk types (31,3 3,35, 39,45 ,51,5 2,56, 58,59 ,66,6 8). The test has been modif ied and valid ated for use in Sure[employer] ath(T M) speci mens. (2) HPV types 16 and/o r 18 that were Not Detec analia were undet ectab le or below the pre-s et thres hold. (3) The non-r epeat rate for HPV genot yping assay s varie s from 5 to 15%. In the NIL cytol ogy categ ory, there is a low posit anuradha predi ctive value (PPV = 15-20 %) for CIN2+ with a posit anuradha high risk HPV resul t. (4) This test was evalu ated and its perfo rmanc e dylan cteri stics deter mined by [employer] [facility]. It has not been clear ed or appro ruben by the U.S. Food and Drug Admin istra tion. The FDA has deter mined that such clear ance or appro quincy is not neces brian. [employer] [facility] is certi fied under the Clini irina Labor atory Impro vemen t Amend ments of 1987 (CLIA ) as quali fied to perfo rm high compl exity clini irina testi ng. This test is used for clini irina purpo ses. It shoul d not be regar ded as inves tigat ional or for resea rch. (5) Susan leet her with past and curre nt clini irina and labor atory data. Not Available [facility] ([facility] [employer]) [address], [place], [address], 07/20/2023 18:10:56 07/20/19 24 07/21/2023 LIPID SCREE N (BASI C LIPID PANEL ) (AMA) cholesterol 138 mg/dL <200 Not Available [facility] ([facility] [employer]) [address], [place], [address], 07/25/2023 20:33:03 07/20/19 24 07/21/2023 LIPID SCREE N (BASI C LIPID PANEL ) (AMA) HDL chol., direct 59 mg/dL >50 Not Available [facility] ([facility]feren[facility]) [address], [place], [address], 07/25/2023 20:33:03 07/20/19 24 07/21/2023 LIPID SCREE N (BASI C LIPID PANEL ) (AMA) triglyceride s 104 mg/dL <150 Not Available [facility] ([facility] [employer]) [address], [place], [address], 07/25/2023 20:33:03 07/20/19 24 07/21/2023 LIPID SCREE N (BASI C LIPID PANEL ) (AMA) HDL % of cholesterol 43 % >14 Evalu ation : BELOW AVERA GE RISK Not Available [facility] ([facility] [employer]) [address], [place], [address], 07/25/2023 20:33:03 07/20/19 24 07/21/2023 LIPID SCREE N (BASI C LIPID PANEL ) (AMA) chol/HDL ratio 2.3 <5.8 Evalu ation : BELOW AVERA GE RISK Not Available [facility] ([facility]) [address], [place], [address], 07/25/2023 20:33:03 07/20/19 24 07/21/2023 LIPID SCREE N (BASI C LIPID PANEL ) (AMA) LDL/HDL ratio 0.98 <3.56 Not Available [facility] ([facility]) [address], [place], [address], 07/25/2023 20:33:03 07/20/19 24 07/21/2023 LIPID SCREE N (BASI C LIPID PANEL ) (AMA) LDL cholesterol 58 mg/dL <100 Not Available [facility] ([facility]) [address], [place], [address], 07/25/2023 20:33:03 07/20/19 24 07/21/2023 LIPID SCREE N (BASI C LIPID PANEL ) (AMA) VLDL, calculated 21 mg/dL 7-32 Not Available [facility] ([facility]) [address], [place], [address], 07/25/2023 20:33:03 07/20/19 24 07/21/2023 LIPID SCREE N (BASI C LIPID PANEL ) (AMA) non-HDL cholesterol 79 mg/dL <130 Not Available [facility] ([facility]) [address], [place], [address], 07/25/2023 20:33:03 07/20/19 24 07/21/2023 CALCI UM, SERUM calcium 9.2 mg/dL 8.6-10 .4 Not Available [facility] ([facility]) [address], [place], [address], 07/25/2023 20:33:03 07/20/19 24 07/21/2023 CBC W/DIF F, PLATE LET CT. WBC 3.96 x10(3 )/uL 4.00-1 0.10 low Not Available [facility] ([facility]) [address], [place], [address], 07/25/2023 20:33:04 07/20/19 24 07/21/2023 CBC W/DIF F, PLATE LET CT. RBC 4.12 x10(6 )/uL 3.58-5 .19 Not Available [facility] ([facility]) [address], [place], [address], 07/25/2023 20:33:04 07/20/19 24 07/21/2023 CBC W/DIF F, PLATE LET CT. HGB 12.5 g/dL 11.0-1 5.5 Not Available [facility] ([facility]) [address], [place], [address], 07/25/2023 20:33:04 07/20/19 24 07/21/2023 CBC W/DIF F, PLATE LET CT. HCT 38.6 % 31.5-4 4.8 Not Available [facility] ([facility]) [address], [place], [address], 07/25/2023 20:33:04 07/20/19 24 07/21/2023 CBC W/DIF F, PLATE LET CT. MCV 93.7 fL 78.0-9 8.0 Not Available [facility] ([facility]) [address], [place], [address], 07/25/2023 20:33:04 07/20/19 24 07/21/2023 CBC W/DIF F, PLATE LET CT. MCH 30.3 pg 25.2-3 2.6 Not Available [facility] ([facility]) [address], [place], [address], 07/25/2023 20:33:04 07/20/19 24 07/21/2023 CBC W/DIF F, PLATE LET CT. MCHC 32.4 g/dL 31.0-3 4.7 Not Available [facility] ([facility]) [address], [place], [address], 07/25/2023 20:33:04 07/20/19 24 07/21/2023 CBC W/DIF F, PLATE LET CT. RDW 12.4 % 12.0-1 5.5 Not Available [facility] ([facility]) [address], [place], [address], 07/25/2023 20:33:04 07/20/19 24 07/21/2023 CBC W/DIF F, PLATE LET CT. polys 30.5 % 37.1-7 8.1 low Not Available [facility] ([facility]) [address], [place], [address], 07/25/2023 20:33:04 07/20/19 24 07/21/2023 CBC W/DIF F, PLATE LET CT. lymphs 54.0 % 13.7-5 0.9 high Not Available [facility] ([facility]) [address], [place], [address], 07/25/2023 20:33:04 07/20/19 24 07/21/2023 CBC W/DIF F, PLATE LET CT. monos 11.4 % 3.0-11 .9 Not Available [facility] ([facility]) [address], [place], [address], 07/25/2023 20:33:04 07/20/19 24 07/21/2023 CBC W/DIF F, PLATE LET CT. eos 3.0 % 0.0-5. 0 Not Available [facility] ([facility]) [address], [place], [address], 07/25/2023 20:33:04 07/20/19 24 07/21/2023 CBC W/DIF F, PLATE LET CT. basos 0.8 % 0.0-1. 0 Not Available [facility] ([facility]) [address], [place], [address], 07/25/2023 20:33:04 07/20/19 24 07/21/2023 CBC W/DIF F, PLATE LET CT. immature granulocytes 0.3 % 0.0-1. 0 Not Available [facility] ([facility]) [address], [place], [address], 07/25/2023 20:33:04 07/20/19 24 07/21/2023 CBC W/DIF F, PLATE LET CT. platelet count 277 x10(3 )/uL 140-42 5 Not Available [facility] ([facility]) [address], [place], [address], 07/25/2023 20:33:04 07/20/19 24 07/21/2023 CBC W/DIF F, PLATE LET CT. MPV 9.8 fL 8.6-12 .1 Not Available [facility] ([facility]) [address], [place], [address], 07/25/2023 20:33:04 07/20/19 24 07/21/2023 FSH (FOLL ICLE STIMU LATIN G HORMO NE) FSH 44.9 m[IU] /mL see below FSH REFER ENCE RANGE S Range (mIU/ mL) Femal e Folli cular Phase 3.5-1 2.5 Midcy paty Peak 4.7-2 1.5 Lutea l Phase 1.7-7 .7 Postm enopa usal 25.8- 134.8 Not Available [facility] ([facility]) [address], [place], [address], 07/25/2023 20:33:04 07/20/19 24 07/21/2023 HEMOG LOBIN A1C (GLYC OHGB) hemoglobin A1C 6.1 % <5.7 high HEMOG LOBIN A1c AND eAG REFER ENCE RANGE S A1c(% ) DIABE PATRIZIA CATEG ORY* <5.7 Martina l (non- diabe tic) 5.7-6 .4 Incre ased risk of diabe patrizia =>6.5 Consi stent with diabe patrizia A1c(% ) eAG(E STIMA ANALIA AVERA GE PLASM A GLUCO SE)(m g/dL) 6 126 7 154 8 183 9 212 10 240 11 269 12 298 *torsten mmend ed range s-Paige r[facility] patrizia [facility] i[facility] n(201 0) NOTE: The amoun t of glyca analia hemog lobin as measu red by the HbA1c test may be overe stima analia in Afric an Ameri cans and shoul d not be used as the sole juan josé eter of glyce nathan burde n. Simil zenaida, hemol ysis, shae ic hemog lobin varia nts and chemi amy modif ied hemog lobin deriv ative s (as seen in renal failu re, smoki ng, aspir in use) may also affec t glyca analia hemog lobin level s. Not Available [facility] ([facility]) [address], [place], [address], 07/25/2023 20:33:04 07/20/19 24 07/21/2023 VITAM IN D, 25-HY DROXY , SERUM 25OH, vitamin D 80.3 NG/mL 32.0-1 00.0 Not Available [facility] ([facility]) [address], [place], [address], 07/25/2023 20:33:05 07/20/19 24 07/21/2023 PROGE STERO NE, SERUM progesterone 6.69 NG/mL see below PROGE STERO NE EXPEC ANALIA VALUE S Range (ng/m L) Femal e Folli cular Phase <0.05 -0.19 Ovula tion Phase 0.06- 4.14 Lutea l Phase 4.11- 14.50 Postm enopa usal <0.05 -0.12 Pregn mackenzie (Trim neel ) 1st 11.00 -44.3 0 2nd 25.40 -83.4 0 3rd 58.70 -214. 00 Not Available [facility] ([facility] [employer]) [address], [place], [address], 07/25/2023 20:33:05 07/20/19 24 07/21/2023 ESTRA DIOL, SERUM estradiol 18.20 pg/mL see below ESTRA DIOL III REFER ENCE RANGE S: Males (yrs) Range (pg/m L) 1-11 5.00- 10.00 12-14 5.00- 30.00 15-17 5.00- 45.00 Adult 11.30 -43.2 0 Femal es (yrs) 1-5 5.00- 10.00 6-9 5.00- 60.00 10-11 5.00- 300.0 0 12-17 24.00 -410. 00 Phase s Folli cular 30.90 -90.4 0 Ovula tion 60.40 -533. 00 Lutea l 60.40 -232. 00 Postm enopa usal <5.00 -138. 00 Trime ster 1st 127.0 0-416 1.00 2nd 1137. 00-25 130.0 0 3rd 7398. 00->3 0000. 00 NOTE: Scott andrew t (Fasl odex( R)), is an estro gen medical office receptionist tor antag onist used to treat postm enopa usal patie nts with metas tatic breas t cance r. Due to cross react ivity , the serum estra diol assay may be false ly eleva analia in this assay and shoul d not be used when monit oring estra diol level s in patie nts treat ed with this medic ation . An alter nativ e metho d shoul d be consi dered . Not Available [facility] [employer] ([facility] [employer]) [address], [place], [address], 07/25/2023 20:33:06 07/20/19 24 07/21/2023 BASIC METAB OLIC PANEL (BMP) (AMA) glucose 111 mg/dL 70-99 high Not Available [facility] ([facility]) [address], [place], [address], 07/25/2023 20:33:06 07/20/19 24 07/21/2023 BASIC METAB OLIC PANEL (BMP) (AMA) sodium 142 mmol/ L 136-14 5 Not Available [facility] ([facility] [employer]) [address], [place], [address], 07/25/2023 20:33:06 07/20/19 24 07/21/2023 BASIC METAB OLIC PANEL (BMP) (AMA) potassium 4.3 mmol/ L 3.6-5. 6 Not Available [employer] ([facility]) [address], [place], [address], 07/25/2023 20:33:06 07/20/19 24 07/21/2023 BASIC METAB OLIC PANEL (BMP) (AMA) chloride 106 mmol/ L 96-108 Not Available [facility] ([facility]) [address], [place], [address], 07/25/2023 20:33:06 07/20/19 24 07/21/2023 BASIC METAB OLIC PANEL (BMP) (AMA) CO2 26 mmol/ L 22-29 Not Available [facility] ([facility]) [address], [place], [address], 07/25/2023 20:33:06 07/20/19 24 07/21/2023 BASIC METAB OLIC PANEL (BMP) (AMA) BUN 21 mg/dL 6-20 high Not Available [facility] ([facility]) [address], [place], [address], 07/25/2023 20:33:06 07/20/19 24 07/21/2023 BASIC METAB OLIC PANEL (BMP) (AMA) creatinine 0.74 mg/dL 0.49-1 .02 Not Available [facility] ([facility]) [address], [place], [address], 07/25/2023 20:33:06 07/20/19 24 07/21/2023 BASIC METAB OLIC PANEL (BMP) (AMA) E-GFR 93 mL/mi n >or=60 GFR categ ories in CKD Categ ory GFR Terms ml/mi n/1.7 3 m2 G1 >or=9 0 Martina l or high G2 60-89 Mildl y decre ased* G3a 45-59 Mildl y to moder ately decre ased G3b 30-44 Moder ately to sever alexandra decre ased G4 15-29 Sever alexandra decre ased G5 <15 Karine y delmeru re Abbre viati ons: CKD, chron ic kidne y disea se; GFR, glome rular filtr ation rate. *Rela tive to young adult level . In the absen ce of evide nce of aixa lazaroith er GFR categ ory G1 nor G2 fulfi ll the crite rhonda for CKD. NOTE: The [facility] ation recom mends using the CKD-E PI Creat inine Equat ion (2020 ) to estim ate GFR in adult s. The new CKD-E PI equat ion is in use 023. Not Available [facility] ([facility]) [address], [place], [address], 07/25/2023 20:33:06 07/20/19 24 07/21/2023 BASIC METAB OLIC PANEL (BMP) (AMA) BUN/creat ratio 28.4 ratio 10.0-2 8.0 high Not Available [facility] ([facility]) [address], [place], [address], 07/25/2023 20:33:06 07/20/19 24 07/21/2023 BASIC METAB OLIC PANEL (BMP) (AMA) calcium 9.2 mg/dL 8.6-10 .4 Not Available [facility] ([facility]) [address], [place], [address], 07/25/2023 20:33:06 07/20/19 24 07/21/2023 HEPAT IC FUNCT ION PANEL (AMA) albumin 4.4 g/dL 3.5-5. 2 Not Available [facility] ([facility]) [address], [place], [address], 07/25/2023 20:33:06 07/20/19 24 07/21/2023 HEPAT IC FUNCT ION PANEL (AMA) bilirubin, total 0.4 mg/dL <1.2 Not Available [facility] ([facility]) [address], [place], [address], 07/25/2023 20:33:06 07/20/19 24 07/21/2023 HEPAT IC FUNCT ION PANEL (AMA) bilirubin, direct <0.2 mg/dL <0.4 Not Available [facility] ([facility]) [address], [place], [address], 07/25/2023 20:33:06 07/20/19 24 07/21/2023 HEPAT IC FUNCT ION PANEL (AMA) total protein 7.6 g/dL 5.9-8. 4 Not Available [facility] ([facility]) [address], [place], [address], 07/25/2023 20:33:06 07/20/19 24 07/21/2023 HEPAT IC FUNCT ION PANEL (AMA) AST 19 U/L <32 Not Available [facility] ([facility]) [address], [place], [address], 07/25/2023 20:33:06 07/20/19 24 07/21/2023 HEPAT IC FUNCT ION PANEL (AMA) ALT 10 U/L <33 Not Available [facility] ([facility]) [address], [place], [address], 07/25/2023 20:33:06 07/20/19 24 07/21/2023 HEPAT IC FUNCT ION PANEL (AMA) alk phos 65 U/L 40-156 Not Available [facility] ([facility]) [address], [place], [address], 07/25/2023 20:33:06 07/20/19 24 07/21/2023 HEPAT IC FUNCT ION PANEL (AMA) A/G ratio 1.4 ratio 1.1-2. 9 Not Available [facility] ([facility]) [address], [place], [address], 07/25/2023 20:33:06 07/20/19 24 07/21/2023 HEPAT IC FUNCT ION PANEL (AMA) globulin 3.2 g/dL 1.7-3. 7 Not Available [facility] ([facility]) [address], [place], [address], 07/25/2023 20:33:06 07/20/19 24 07/21/2023 HEPAT IC FUNCT ION PANEL (AMA) bilirubin, indirect Can't Calc mg/dL 0.1-1. 0 Can't Calc: One or more compo nents was outsi de the measu rable range . We are unabl e to calcu late. Not Available [facility] ([facility]) [address], [place], [address], 07/25/2023 20:33:06 07/20/19 24 07/25/2023 DIHYD ROTES TOSTE KARENA dht 20 NG/dL see below DIHYD ROTES TOSTE KARENA (DHT) REFER ENCE RANGE S Range (ng/d L) Pedia tric Not Estab lishe d Male 11-82 Femal e 2-25 ASSAY INFOR MATIO N: Metho d LCMSM S REFER ENCE RANGE SOURC E: Refer ence Range s for the Dihyd rotes toste karena LCMSM S metho d were estab lishe d at [facility]. NOTE: Dihyd rotes toste karena (DHT) was devel oped and its perfo rmanc e dylan cteri stics were deter mined by [facility] 24h00. It has not been clear ed by the U.S. Food and Drug Admin istra tion. The FDA has deter mined that such clear ance or appro quincy is not neces brian. This test is used for clini irina purpo ses. It shoul d not be regar ded as inves tigat ional or for resea [facility]. This lab has been appro ruben by NURIA López and lenin pham as a high compl exity labor atory and is quali fied to perfo rm this test. Not Available [facility] ([facility]) [address], [place], [address], 07/25/2023 20:33:07 07/20/19 24 07/21/2023 TESTO STERO NE, TOTAL /FREE (LC/M S) sex horm.bind.gl ob. 20.1 nmol/ L 17.3-1 25.0 normal Not Available [facility] ([facility]) [address], [place], [address], 07/25/2023 20:33:07 07/20/19 24 07/25/2023 TESTO STERO NE, TOTAL /FREE (LC/M S) testosterone ,tot.lc/MS/M S 10.5 NG/dL see below TOTAL TESTO STERO NE REFER ENCE RANGE S TANNE R STAGE Male (ng/d L) Femal e (ng/d L) 1 2.0-2 3.0 2.0-1 0.0 2 5.0-7 0.0 5.0-3 0.0 3 15.0- 280.0 10.0- 30.0 4 105.0 -545. 0 15.0- 40.0 5 65.0- 800.0 10.0- 40.0 ADULT S 260.0 -1000 .0 15.0- 70.0 ASSAY INFOR MATIO N: Metho d LC/MS /MS REFER ENCE: Zachery haq of Clini irina Chemi stry and Chacho kim s,7th .ed,2 015. NOTE: Total Testo stero ne was devel oped and its perfo rmanc e dylan cteri stics were deter mined by [facility] [employer], [facility]. It has not been clear ed by the U.S. Food and Drug Admin istra tion. The FDA has deter mined that such clear ance or appro quincy is not neces brian. This test is used for clini irina purpo ses. It shoul d not be regar ded as inves tigat ional or for resea [facility]. This lab has been appro ruben by NURIA López and lenin [facility]am as a high compl exity labor atory and is quali fied to perfo rm this test. Not Available [facility] [employer] ([facility]) [address], [place], [address], 07/25/2023 20:33:07 07/20/19 24 07/25/2023 TESTO STERO NE, TOTAL /FREE (LC/M S) free testosterone , calc 2.42 pg/mL 0.77-9 .30 Not Available [facility] ([facility]) [address], [place], [address], 07/25/2023 20:33:07 08/10/19 24 08/11/2023 PROLA CTIN, SERUM prolactin, serum 15.4 NG/mL see below PROLA CTIN REFER ENCE RANGE S Femal e Range (ng/m L) Non-P regna nt 4.8-2 3.3 Pregn ant 3rd Trime ster 95.0- 473.0 NOTE: Pregn mackenzie Range adapt ed from Zachery , 2006, 4th Ed. Not Available [facility] ([facility]) [address], [place], [address], 08/11/2023 17:02:17 08/10/19 24 08/15/2023 NIPPL E DISCH ARGE SMEAR nipple discharge smear Benign normal DIAGN OSIS: RIGHT NIPPL E DISCH ARGE FOR CYTOL OGY: - [employer] hous mater ial consi stent with nippl e disch arge. SPECI MEN SOURC E: NIPPL E DISCH ARGE SMEAR , RIGHT NIPPL E DISCH ARGE CLINI IRINA INFOR MATIO N: Provi ded Diagn osis Codes : N64.5 2 ELECT AKHIL ROSEANNE JOSEFINA D BY: Scree larry By: Garrett jasso Ela man Case Elect akhil roseanne Josefina d 08/15 Cytol ogy scree judit and inter preta tion perfo rmed at: [employer] [address] [employer] [address] . Not Available [facility] ([facility]) [address], [place], [address], 08/15/2023 15:48:00 08/10/19 24 08/15/2023 NIPPL E DISCH ARGE SMEAR nipple discharge smear Benign normal DIAGN OSIS: LEFT NIPPL E DISCH ARGE FOR CYTOL OGY: - [employer] mater ial consi stent with nippl e disch arge. SPECI MEN SOURC E: NIPPL E DISCH ARGE SMEAR , LEFT NIPPL E DISCH ARGE CLINI IRINA INFOR MATIO N: Provi ded Diagn osis Codes : N64.5 2 ELECT AKHIL ROSEANNE JOSEFINA D BY: Scree larry By: Garrett jasso Ela man Case Elect akhil roseanne Josefina d 08/15 Cytol ogy scree judit and inter preta tion perfo rmed at: [employer] [address] [address] . Not Available [facility] ([facility]) [address], [place], [address], 08/15/2023 15:48:01 07/14/19 23 07/14/2022 US, trans vagin al No observ ation record ed. [email or web address] Main Office [address], [place], [address], 07/15/2022 11:02:05 07/15/19 23 07/15/2022 ultra sound image s RAD [email or web address] [employer] [id number] 07/15/2022 14:21:42 07/15/19 23 US, pelvi s No observ ation record ed. [email or web address] Main Office [address], [place], [address], 07/15/2022 10:04:42 09/10/19 23 US, pelvi s No observ ation record ed. [email or web address] Main Office [address], [place], [address], 07/18/2023 16:16:57 09/10/19 23 09/09/2022 ultra sound image s RAD [email or web address] [employer] [id number] 07/18/2023 16:16:57 07/20/19 24 07/20/2023 US, trans vagin al No observ ation record ed. [email or web address] Main Office [address], [place], [address], 07/20/2023 14:16:13 07/20/19 24 07/20/2023 ultra sound image s RAD [employer] [id number] 07/20/2023 16:53:30 12/07/19 24 12/07/2023 bone densi ty No observ ation record ed. [email or web address] [facility] [address], [place], [address], 12/27/2023 13:46:32 Result Notes Documentation Provider Name and Address Organization Details Recorded Time Pap, Lb + Hr Hpv + Reflex Hpv (16+18) : wnl hpv- Danni alcantara, [facility] 07/23/2022 09:47:02 Problems Name Problem SNOMED Code Status Onset Date Resolution Date Notes Provider Name and Address Organization Details Recorded Time Diabetes mellitus 57846302 Completed 201608/10/2017 pre Rossana Sage MD [address], [place], [address] , [facility] 13:09:36 Retinopa thy Active 2016 better since off steroids for back Mala Bills MD [address], [place], [address] , [facility] 7 15:19:15 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 Mala Bills MD [address], [place], [address] , [facility] 7 15:19:27 Osteopen ia 684281077 Active 2017 Rossana Sage MD [address], [place], [address] , [facility] 8 13:08:51 Vitamin deficien cy 27967267 Completed 201708/10/2017 Rossana Sage MD [address], [place], [address] , [facility] 8 13:09:53 Impaired fasting glycemia 781674352 Active 2017 Rossana Sage MD [address], [place], [address] , [facility] 8 13:09:47 Vitamin D deficien cy 12599911 Active 2017 Rossana Sage MD [address], [place], [address] , [facility] 8 13:10:03 Insomnia 590808208 Active 2017 Rossana Sage MD [address], [place], [address] , [facility] 8 13:10:10 History of tubal ligation 991053813 Active 2017 [facility] 8 12:14:41 Cyst of ovary 73780827 Active 2018 [facility] alcant[facility] 9 14:51:29 Blood in urine 12778744 Active 2018 Mala Bills MD [address] [place], [address] , [facility] 9 15:33:01 Gastropa resis syndrome 984347981 Active 2019 Mala Bills MD [address] [place], [address] , [facility] 0 14:11:48 Screenin g for cancer Active 2020 benign [facility]ific [facility] 14:18:25 Administ ration of SARS-CoV -2 vaccine Active 2020 Moderna X2 Angelica Brayan [facility] 1 15:05:35 Uterine leiomyom a [id number] Active 2023 small and ginger per 2023 u/s. Mala Bills MD [address] [place], [address] , [facility] 4 15:04:20 Notes:FATTY LIVER primary ca re dr kenney urologist dr gabriel Problem Notes None recorded. Procedures Surgical History Date Name Laterality Status Provider Name and Address Organization Details Recorded Time 024 Date of Last Pap Smear completed [facility] 08/10/2023 08:43:44 022 Dilation and Curettage completed [facility] 09/21/2021 09:33:15 021 Most Recent Mammogram [facility] 07/09/2022 13:15:32 021 Endometrial Biopsy completed aMla Bills MD [address] [place], [address], [facility] 05/04/2021 12:28:03 020 Most Recent Bone Density completed [facility] 03/17/2021 14:16:35 017 Shoulder joint surgery completed Rossana Sage MD [address] [place], [address], [facility] 08/10/2017 13:01:28 016 Date of Last Colonoscopy completed Rossana Sage MD [address], [place], [address], [facility] 08/10/2017 13:03:05 Dilation and Curettage completed [facility] 10/23/2018 14:57:02 Tubal Ligation completed Nina [facility] 07/05/2016 09:13:55 Cholecystectomy w/cholang completed Nina RE[facility] 07/05/2016 09:14:03 Imaging Results Imaging Date Name Status LastModified by Organization Details LastModified Time 07/14/2022 US, transvaginal completed Main [facility]ice [address], [place], [address], 07/15/2022 11:02:05 07/15/2022 ultrasound images completed [email or web address] [facility] [id number] 07/15/2022 14:21:42 07/15/2022 US, pelvis completed [email or web address] Main Office [address], [place], [address], 07/15/2022 10:04:42 09/09/2022 US, pelvis completed [email or web address] Main Office [address], [place], [address], 07/18/2023 16:16:57 09/09/2022 ultrasound images completed [email or web address] [facility] [id number] 07/18/2023 16:16:57 07/20/2023 US, transvaginal completed [email or web address] Main O ffice [address], [place], [address], 07/20/2023 14:16:13 07/20/2023 ultrasound images completed [email or web address] [facility] [id number] 07/20/2023 16:53:30 12/07/2023 bone density completed [email or web address] [facility] [address] [facility] [address], [place], [address], 12/27/2023 13:46:32 Procedure Notes None recorded. Medical Equipment None Reported. Allergies Allergen ID Allergen Name Allergen Category Reaction Reaction Severity Criticality Documentation Date Start Date Code Code System Note Provider Name and Address Organization Details Recorded Time 14178 latex environme nt,medica tion Not available Not available Not available 07/14/2022 19778 91 RxNorm Mala Bills MD [facility] [address], [place], [address], [facility] 10:04:57 Medications Name Sig Start Date Stop Date Status Note LastModified by Organization Details LastModified Time Testosteron e Proprionate 1% Cream apply one pump to thigh q day 2016 active Not Available Not Available Not Avai lable blood pressu solution kit 07/18 completed Not Available Not Available Not Available Prescriptio n - New 02/03 completed gems Not Available Not Available Not Available Prescriptio n - Prior Authorizati on Request 04/16 completed Not Available Not Available Not Available cyclobenzap rine 10 mg tablet 04/16 completed Not Available Not Available Not Available amoxicillin 500 mg capsule active Not Available Not Available Not Available methocarbam ol 500 mg tablet 07/05 completed Not Available Not Available Not Available prednisone 10 mg tablet TAKE 1 TABLET BY MOUTH TWICE A DAY FOR CONGESTIO N 08/31 completed Not Available Not Available Not Available doxycycline hyclate 100 mg capsule TAKE 1 CAPSULE BY MOUTH 2 TIMES A DAY FOR 10 DAYS 07/18 completed Not Available Not Available Not Available atorvastati n 20 mg tablet TAKE 1 TABLET BY MOUTH EVERY DAY active Not Available Not Available No t Available azithromyci n 250 mg tablet 08/16 completed Not Available Not Available Not Available ibuprofen 800 mg tablet TAKE 1 TABLET 3 TIMES A DAY BY ORAL ROUTE NEEDED. 09/21 completed Not Available Not Available Not Available tizanidine 4 mg tablet active Not Available Not Available Not Available clarithromy sherry 500 mg tablet active Not Available Not Available Not Available meloxicam 15 mg tablet 08/08 completed Not Available Not Available Not Available prednisone 20 mg tablet TAKE 2 TABLETS BY MOUTH EVERY DAY FOR 5 DAYS 07/14 completed Not Available Not Available Not Available promethazin e 6.25 mg-codeine 10 mg/5 mL syrup TAKE 1-2 TEASPOONS (5-10 ML) EVERY 6 HOURS NEEDED FOR CONGESTIO N AND COUGH 08/31 completed Not Available Not Available Not Available hydroxyzine HCl 50 mg tablet TAKE 1 TABLET BY MOUTH TWICE A DAY active Not Available Not Available No t Available ciprofloxac in 250 mg tablet 07/05 completed Not Available Not Available Not Available sulfamethox azole 800 mg-trimetho prim 160 mg tablet 07/05 completed Not Available Not Available Not Available sildenafil 25 mg tablet Take 1 tablet every day by oral route. 08/08 completed Not Available Not Available Not Available triamcinolo ne acetonide 0.1 % topical cream 08/16 completed ENT - PRN Not Available Not Available Not Available amoxicillin 500 mg tablet TAKE 1 TABLET BY MOUTH 3 TIMES A DAY UNTIL GONE 07/15 completed Not Available Not Available Not Available ketorolac 10 mg tablet TAKE 1 TABLET BY MOUTH FOUR TIMES A DAY NEEDED FOR PAIN FOR 5 DAYS 04/16 completed Not Available Not Available Not Available meloxicam 7.5 mg tablet 08/10 completed Not Available Not Available Not Available oxycodone-a cetaminophe n 5 mg-325 mg tablet TAKE 2 TABLETS BY MOUTH EVERY 6 HOURS NEEDED 09/21 completed Not Available Not Available Not Available alprazolam 0.5 mg tablet 08/16 completed Not Available Not Available Not Available amoxicillin 875 mg tablet TAKE 1 TABLET BY MOUTH EVERY 12 HOURS FOR 10 DAYS 07/15 completed Not Available Not Available Not Available metoclopram caitie 5 mg tablet 08/16 completed Not Available Not Available Not Available methocarbam ol 750 mg tablet TK 2 TS PO TID FOR 5 DAYS 04/16 completed Not Available Not Available Not Available hydrocortis one 2.5 % lotion APPLY EXTERNALL Y TO FACE TWICE DAILY NEEDED 04/16 completed Not Available Not Available Not Available tamsulosin 0.4 mg capsule 07/05 completed Not Available Not Available Not Available dicyclomine 20 mg tablet 07/05 completed Not Available Not Available Not Available hydrocodone 7.5 mg-acetamin ophen 325 mg tablet 08/16 completed Not Available Not Available Not Available cephalexin 500 mg capsule 08/16 completed Not Available Not Available Not Available erythromyci n 5 mg/gram (0.5 %) eye ointment 08/10 completed Not Available Not Available Not Available nitrofurant oin macrocrysta l 100 mg capsule 02/06 completed Not Available Not Available Not Available promethazin e 25 mg tablet TAKE 1 TABLET BY MOUTH EVERY 4 HOURS NEEDED 09/21 completed Not Available Not Available Not Available progesteron e micronized 200 mg capsule TAKE 1 CAPSULE BY MOUTH EVERY DAY 2024 active Not Available Not Available Not Avai lable diclofenac potassium 50 mg tablet TAKE 1 TABLET BY MOUTH TWICE A DAY WITH FOOD NEEDED active Not Available Not Available No t Available nitroglycer in 0.4 mg sublingual tablet 08/10 completed Not Available Not Available Not Available gabapentin 300 mg capsule 08/08 completed Not Available Not Available Not Available omeprazole 20 mg capsule,del ayed release 04/16 completed Not Available Not Available Not Available diclofenac sodium 75 mg tablet,cain yed release 08/08 completed Not Available Not Available Not Available etodolac 400 mg tablet 07/05 completed Not Available Not Available Not Available montelukast 10 mg tablet 08/16 completed Not Available Not Available Not Available hydroxyzine HCl 25 mg tablet 08/10 completed Not Available Not Available Not Available diclofenac sodium 50 mg tablet,cain yed release prn 04/16 completed Not Available Not Available Not Available gabapentin 100 mg capsule TAKE 1 CAPSULE BY MOUTH TWICE A DAY 04/16 completed Not Available Not Available Not Available diazepam 10 mg tablet 07/05 completed Not Available Not Available Not Available ibuprofen 600 mg tablet 04/16 completed Not Available Not Available Not Available levofloxaci n 500 mg tablet 10/23 completed Not Available Not Available Not Available zolpidem 10 mg tablet 08/16 completed Not Available Not Available Not Available cefdinir 300 mg capsule TAKE 1 CAPSULE BY MOUTH TWICE A DAY FOR INFECTION 08/31 completed Not Available Not Available Not Available metformin ER 500 mg tablet,exte nded release 24 hr TAKE 1 TABLET BY MOUTH TWICE A DAY 07/15 completed Not Available Not Available Not Available naproxen 500 mg tablet TK 1 T PO BID WITH MEALS 04/16 completed Not Available Not Available Not Available mometasone 0.1 % topical cream 07/05 completed Not Available Not Available Not Available diazepam 5 mg tablet 08/16 completed Not Available Not Available Not Available amoxicillin 875 mg-potassiu m clavulanate 125 mg tablet TAKE 1 TABLET BY MOUTH EVERY 12 HOURS FOR 10 DAYS 07/14 completed Not Available Not Available Not Available estradiol 0.025 mg/24 hr semiweekly transdermal patch Please specify direction s, refills and quantity active Not Available Not Available No t Available neomycin-po lymyxin-hyd rocort 3.5 mg-10,000 unit/mL-1 % ear drops,susp active Not Available Not Available N ot Available EstroGel 1.25 gram/actuat ion (0.06%) transdermal gel pump APPLY 1 PUMP TO ARM EVERY DAY 08/10 completed Not Available Not Available Not Available nitrofurant oin monohydrate /macrocryst als 100 mg capsule Take 1 capsule every 12 hours by oral route for 7 days. 08/16 completed Not Available Not Available Not Available ibandronate 150 mg tablet TAKE ONE TABLET BY MOUTH ONCE A MONTH 2024 active Not Available Not Available Not Avai lable Zyrtec 07/15 completed Not Available Not Available Not Available cholecalcif rigoberto (vitamin D3) 1,250 mcg (50,000 unit) capsule Take 1 capsule twice a week by oral route. 08/10 completed Not Available Not Available Not Available Uribel 118 mg-10 mg-40.8 mg-36 mg capsule 04/16 completed Not Available Not Available Not Available Probiotic active Not Available Not Carmen ilable Not Available desoximetas one 0.05 % topical ointment APPLY A THIN LAYER TO THE AFFECTED AREA(S) BY TOPICAL ROUTE 2 TIMES PER DAY ; RUB IN GENTLY AND COMPLETEL Y 08/16 completed Not Available Not Available Not Available OneTouch Verio test strips USE TO MONITOR GLUCOSE TWICE DAILY. - FASTING 100-125 AND 45 MINUTES < 200 07/18 completed Not Available Not Available Not Available Intrarosa 6.5 mg vaginal insert 1 insert pv qd 2023 active Not Available Not Available Not Avai lable Flucelvax Quad 1699-3374 (PF) 60 mcg (15 mcg x 4)/0.5 mL IM syringe 02/06 completed Not Available Not Available Not Available estradiol 0.75 mg/0.75 gram (0.1%) transdermal gel packet APPLY 1 PACKET BY TRANSDERM AL ROUTE EVERY DAY active Not Available Not Available No t Available OneTouch Delica Plus Lancet 33 gauge USE TO CHECK BLOOD SUGARS TWICE DAILY 07/18 completed Not Available Not Available Not Available Fluarix Quad (PF) 60 mcg (15 mcg x 4)/0.5 mL IM syringe 08/16 completed Not Available Not Available Not Available OneTouch Verio Reflect Meter USE DIRECTED 07/18 completed Not Available Not Available Not Available Fluzone Quad (PF) 60 mcg (15 mcg x 4)/0.5 mL IM syringe ADM 0.5ML IM UTD 08/31 completed Not Available Not Available Not Available Vitals Date Recorded Body height Body mass index (BMI) Body weight Systolic blood pressure Diastolic blood pressure Provider Name and Address Organization Details Last Updated DateTime 07/18/2023 154.94 cm 22.9 kg/m2 82797.68 g 120 mm[Hg] 80 mm[Hg] Mala Bills MD [address] [place], [address] [facility] 4 16:05:12 Date Recorded Body height Body mass index (BMI) Body weight Systolic blood pressure Diastolic blood pressure Provider Name and Address Organization Details Last Updated DateTime 08/10/2023 154.94 cm 22.9 kg/m2 87580.68 g 104 mm[Hg] 68 mm[Hg] Alie Trevino NP [address] [place], [address] [place], [place] [address]s [facility] 4 11:34:11 Social History Question Answer Notes LastModified by Organizat ion Details LastModified Time Tobacco Smoking Status Former Smoker Mala Bills MD [address] [place], [address], [facility] 07/14/2022 10:04:39 Do You Have An Advance Directive? No [email or web address] Information not available 07/14/2022 What Is Your Level Of Alcohol Consumption? Occasional [email or web address] Information not available 07/05/2016 Do You Or Have You Ever Used E-cigarettes Or Vape? 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 10/23/2018 Information not available 09/09/2022 Do You Use Protection During Sex? No Information not available 08/10/2017 What Is Your Relationship Status? Information not available 08/10/2017 Are You Sexually Active? Yes Information not available 08/10/2017 At What Age Did You Start Smoking Tobacco? 17 [email or web address] Information not available 07/14/2022 Do You Or Have You Ever Used Smokeless Tobacco? Never Used Smokeless Tobacco Information not available 09/09/2022 How Much Tobacco Do You Smoke? No [email or web address] Information not available 08/14/2018 How Many Years Have You Smoked Tobacco? 0 Information not available 09/09/2022 Sex: Unknown Functional Status None recorded. Mental Status None recorded. Family History Relationship Description Onset Age of this Age Resolved Age Notes LastModified by Organization Details LastModified Time Father Hypertensive disorder [email or web address] Not available 2016 14:15:52 Father Malignant neoplastic disease pt. added direct ly (07/15) [email or web address] Not available 07/15/2023 17:52:48 Maternal Uncle Diabetes mellitus [email or web address] Not available 2016 14:16:00 Sister Malignant tumor of colon [email or web address] Not available 10:08:21 Sister Diabetes mellitus pt. added direct ly (07/15) [email or web address] Not available 07/15/2023 17:51:57 Sister Malignant neoplastic disease pt. added direct ly (07/15) [email or web address] Not available 07/15/2023 17:52:48 Mother Malignant neoplastic disease pt. added direct ly (07/15) [email or web address] Not available 07/15/2023 17:52:48 Medical History Condition Response Heart Problems N Other N Blood Transfusion N Breast Cancer N Thyroid Problems N Kidney or Bladder Problems N Lung Disease N Depression N GI Problems N Defects or Inherited Disease N Acne N Eating Disorder N Breast Problem N Anemia N Anesthesia Complications N Psychiatric Illness N Anxiety Disorder N Ovarian Cancer N Diabetes Y Arthritis N Infertility N Polyps N Acid Reflux (GERD) N Cancer N Eczema N Varicosities N Stroke N Abuse/Domestic Violence N Asthma N Endometriosis N High Cholesterol N Hepatitis N Heart Disease N Headaches N Fibromyalgia N Pre-Eclampsia N Hypertension N Osteoporosis N Kidney Disease N Thrombophilias N Gynecological History Statement/Question Response Abnormal Pap N Date of LMP Regular periods N STIs/STDs N HPV Vaccine N Most Recent Mammogram 05/07/2021 Current Control Method Tubal Ligat ion ANSWER ABOVE EVERY VISIT 10/23/2018 Age at Menarche 10 If Post Menopausal, Age at Menopause 51 Date of Last Colonoscopy 07/22/2015 Date of Last Annual 07/18/2023 Most Recent Bone Density 01/31/2020 Sexually Active? Y Date of Last Pap Smear 07/18/2023 Hormone Replacement Therapy Y Obstetrics History GPAL:G 3 P 3 0 0 3 Type Value Full Term 3 Living 3 Total 3 Past Encounters Encounter ID Performer Location Encounter Start Date Encounter Closed Date Diagnosis/Indication Diagnosis SNOMED-CT Code Diagnosis ICD10 Code Diagnosis Note [id number] Mala Bills MD Main Office [address] [facility] [place] [address] 07/05/2016 13:58:34 07/05/2016 15:45:49 Gynecologic examination 55289447 Z01.419 Screening mammography 24 167872 Z12.31 Screening for osteoporosis 494856631 Z13.820 Urinary tr act infectious disease 64532439 N39.0 Disorder o f endocrine system 097984899 E34.9 [id number] Mala Bills MD Main Office [address] [facility] [place] [address] 08/04/2016 14:34:56 08/04/2016 16:34:13 Urinary tract infectious disease 74536022 N39.0 will wait for culture to come back, if positive, will start abx as pt was unsure if this lower back pain is from back injury in 2016 [id number] Rossana Sage MD Main Office [address] [facility] [place] [address] 08/10/2017 11:58:34 08/10/2017 13:42:12 Gynecologic examination 72777097 Z01.419 Screening mammography 24 461325 Z12.31 Screening for osteoporosis 827155280 Z13.820 had dexa 2017 will get next year Adult heal th examination 029095479 Z00.00 ppt instructed to have annual wellness visit with PCP Menopausal symptom 80243 002 N95.1 ancelmo will check cmp, and testostero ne panel Insomnia 564378790 G47.0 0 recommend melatonin or antihystam ine Vitamin D deficiency 347 20563 E55.9 Impaired f asting glycemia 810218819 R73.01 Osteopenia 311409041 M85 .80 Menopausal syndrome 1237 87050 N95.9 [id number] Mala Bills MD Main Office [address] [facility] [place] [address] 02/06/2018 16:52:10 02/06/2018 17:50:40 Abnormal cervical Papanicolaou smear 349637619 R87.619 Hypercholesterolemia 136 53575 E78.00 [id number] Mala Bills MD Main Office [address] [facility] [place] [address] 08/14/2018 12:07:15 08/14/2018 15:43:17 Gynecologic examination 75249089 Z01.419 Screening mammography 24 270206 Z12.31 Screening for osteoporosis 611457348 Z13.820 had dexa 2017 will get next year Adult heal th examination 668927514 Z00.[address] out Contraception care 25192 5005 Z30.40 tubal Urinary tr act infectious disease 13028678 N39.0 Menopausal syndrome 1237 44974 N95.9 Vaginal dryness 59297664 N89.8 [id number] Mala Bills MD Main Office [address] [facility] [place] [address] 10/23/2018 13:52:29 10/23/2018 16:19:30 Cyst of ovary 63260277 N83.209 [id number] Mala Bills MD Main Office [address] [facility] [place] [address] 10/23/2018 13:52:46 10/23/2018 15:36:35 Cyst of ovary 33109206 N83.209 simple of no concern Urinary tr act infectious disease 57524872 N39.0 Blood in urine 58551681 R31.9 will fu urologist as was to see him yearly for ho hematuria Endometrium thickened 44 4890358 N85.00 with no bleeding repeat us in 3 months [id number] Mala Bills MD Main Office [address] [facility] [place] [address] 08/16/2019 13:26:37 08/16/2019 15:06:47 Gynecologic examination 57716314 Z01.419 Screening mammography 24 875185 Z12.31 Screening for cancer 158 24618 Z12.39 R92.2 Screening for osteoporosis 314449281 Z13.820 had dexa 2017 will get next year Screening colonoscopy 44 9492652 Z12.11 done age 49 due in 2024 Adult heal th examination 221831622 Z00.[address] out Menopausal syndrome 1237 81745 N95.9 Vaginal dryness 20691318 N89.8 Multiple joint pain 3567 8005 M25.50 in fingers bilat rec fu with pcp Cyst of ovary 55102261 N 83.209 will reeval if stable no fu needed [id number] Mala Bills MD Main Office [address] [facility] [place] [address] 09/15/2020 12:16:48 09/15/2020 15:43:05 Cyst of ovary 36888066 N83.209 [id number] Mala Bills MD Main Office [address] [facility] [place] [address] 04/16/2021 14:00:58 04/16/2021 16:54:16 Gynecologic examination 12170719 Z01.419 Screening mammography 24 983784 Z12.31 rec dx due to very dense and lumpy breast Screening for cancer 158 00399 Z12.39 R92.2 benign calcificat ions Screening colonoscopy 44 0171767 Z12.11 done age 49 due in 2024 Adult heal th examination 194830865 Z00.[address] out Menopausal syndrome 1237 39122 N95.9 Impaired f asting glycemia 280168177 R73.01 Cyst of ovary 10113317 N 83.209 Breast lump 90516983 N63 .0 very lumpy and dense breast [id number] Mala Bills MD Main Office [address] [facility] [place] [address] 04/27/2021 15:41:47 04/27/2021 16:55:51 Cyst of ovary 06151535 N83.209 [id number] Mala Bills MD Main Office [address] [facility] [place] [address] 05/04/2021 11:43:04 05/04/2021 13:13:11 Polyp of corpus uteri 23766785 N84.0 denies DUB, await bx for next step. [id number] Mala Bills MD Main Office [address] [facility] [place] [address] 08/12/2021 13:41:51 08/12/2021 14:48:43 Polyp of corpus uteri 96100867 N84.0 [id number] Mala Bills MD Main Office [address] [facility] [place] [address] 08/31/2021 15:47:35 08/31/2021 17:02:54 Pre-surgery evaluation 950607432 Z01.818 Polyp of corpus uteri 11 456360 N84.0 for D&C poss myosure [id number] Mala Bills MD Main Office [address] [facility] [place] [address] 09/21/2021 15:32:26 09/21/2021 16:12:44 Postoperative care 969355246 Z48.816 doing well rv annual cont estrogel and prog 200 [id number] Mala Bills MD Main Office [address] [facility] [place] [address] 07/14/2022 09:27:21 07/14/2022 12:14:35 Gynecologic examination 37362618 Z01.419 Screening mammography 24 251803 Z12.31 Screening for cancer 158 52138 Z12.39 R92.2 dense breast Screening for osteoporosis 814473046 Z13.820 2019 oestopenia Screening colonoscopy 44 3067427 Z12.11 done age 49 due in 2024 Adult heal th examination 110570805 Z00.00 Menopausal syndrome 1237 43023 N95.9 Reactive d epression (situational) 64376350 F32.A Cyst of ovary 69132381 N 83.209 us on thurs to eval [id number] Mala Bills MD Main Office [address] [facility] [place] [address] 07/15/2022 09:44:11 07/15/2022 10:47:46 Cyst of ovary 22003257 N83.209 [id number] Mala Bills MD Main Office [address] [facility] [place] [address] 09/09/2022 10:58:38 09/09/2022 12:45:36 Uterine leiomyoma 66084655 D25.9 [id number] Mala Bills MD Main Office [address] [facility] [place] [address] 07/18/2023 15:49:53 07/18/2023 16:56:36 Gynecologic examination 81569194 Z01.419 Screening mammography 24 003101 Z12.31 Screening for cancer 158 36460 Z12.39 R92.2 dense breast Screening for osteoporosis 990706106 Z13.820 2019 oestopenia Screening colonoscopy 44 1680147 Z12.11 done age 49 due in 2024 Adult heal th examination 384726067 Z00.00 Menopausal syndrome 1237 05189 N95.9 with low libido will do, will do HMPis using estrogel on abdomen because of darkening skin on arm, if levels not don consider changing to divigel .75 samples given Atrophic vaginitis 18124 000 N95.2 Impaired f asting glycemia 907474678 R73.01 Reduced libido 0011211 R 68.82 will try sildenafil but if no improvemen t will consider test if indicated or vyleesi [id number] Mala Bills MD Main Office [address] [facility] [place] [address] 07/20/2023 12:04:28 07/20/2023 16:23:35 Uterine leiomyoma 77963381 D25.9 [id number] Alie Trevino NP Main Office [address] [facility] [place] [address] 08/10/2023 11:28:39 08/10/2023 12:24:11 Discharge from nipple 35905209 N64.52 prolactin level, dx MMG and breast US bilateral. orders sent. Health Concerns Section Related Observation LastModified by Organization Detai ls LastModified Time None Recorded Concern Status LastModified by Organization Details LastModified Time None Recorded Advance Directives Directive N: Payers Encounter Date Sequence Insurance Name Policy Number Policy Lee Covered Member ID Lee Member ID Guarantor Name 07/15/2022 1 [place] [facility] [id number] Adarsh Welch [id number] Adarsh Welch 09/09/2022 1 [place] [facility] [id number] Adarsh Welch [id number] Adarsh Welch 07/18/2023 1 [employer] - CHOICE (POS II) [id number] Adarsh Welch [id number] Adarsh Welch 07/20/2023 1 [employer] - CHOICE (POS II) [id number] Adarsh Welch [id number] Adarsh Welch 08/10/2023 1 [employer] - CHOICE (POS II) [id number] Adarsh Welch [id number] Adarsh Welch Notes Date Note Type Note Provider Name and Address Organization Details Recorded Time 07/18/2023 text/html Patient in for annual car pincher appointment.Pt reports feeling good, rarely uses intrarosa but reports low libido Mala Bills MD [address], [place], [id number], [facility] 07/18/2023 16:42:36 OBGyn Episode No OBEpisode recorded.
--- OUTSIDE RECORDS SUMMARY | 2024-08-04 11:35 | XMS_ITS | Clinical Summary ---
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 210 each 3 3 Active lancets (OneTouch Delica Lancets) 33 gauge miscIndications :Pre-diabetes Use to check blood sugars twice daily 200 each 3 3 Active ibandronate (BONIVA) 150 mg tablet TAKE ONE TABLET BY MOUTH ONCE A MONTH 4 Active empagliflozin (JARDIANCE) 10 mg tablet Take 1 tablet (10 mg total) by mouth daily 90 tablet 3 4 Active B.animalis,bifi d,infantis,long (PROBIOTIC 4X ORAL) Active budesonide (Pulmicort) 0.5 mg/2 mL nebulizer solution Mix 1 capsule/ampule in 250 mL of saline irrigations (StereoVision Imaging Sinus Rinse Bottle) and irrigate each nostril with half of the bottle twice daily. 120 mL 5 4 Active hydroxychloroqu ine (PLAQUENIL) 200 mg tabletIndicatio ns:Connective Tissue Disease Take 1 tablet (200 mg total) by mouth daily 30 tablet 5 5 01/20/20 25 Active Active Problems Problem Noted Date Diagnosed Date Other chest pain 04/17/2024 Elevated antinuclear antibody (GENA) level 2023 Uterine leiomyoma 07/19/2023 Overview (03/15/2024): small and ginger per 2023 u/s. 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 a1c in 5 range . Menopausal syndrome 07/04/2016 Sinusitis Nosebleed Encounters Date Type Department Care Team Description 07/23/2024 6:45 PM CRANBERRY GROWER Lab [facility] [address] [place] [phone] Elevated antinuclear antibody (GENA) level 07/23/2024 Orders Only [facility] Rheumatology [address] [facility] 5th [place] [address] [place] [phone] Akhil Hernandez MD Elevated antinuclear antibody (GENA) level (Primary Dx) 2024 9:00 AM CRANBERRY GROWER Office Visit [facility] ENT [address] [facility] Medical Office Building [address] [place] [phone] Jovan May MD Nosebleed (Primary Dx); Sinusitis, unspecified chronicity, unspecified location 06/01/2024 Orders Only [facility] Rheumatology [address] [facility] 5th [place] [address] [place] [phone] Akhil Hernandez MD Sinusitis, unspecified chronicity, unspecified location (Primary Dx) 05/10/2024 1:00 PM CRANBERRY GROWER Ancillary Procedure [facility] Medical Group Cardiology [address] [place] [address] Other chest pain from Last 3 Months Immunizations Name Administration Dates Next Due Hep A / Hep B 08/10/2022,07/08/2022 Influenza, Quadrivalent, Diane l Culture-based MDCK, Preservative Free, Antibiotic Free, Intramuscular 03/31/2023,06/04/2022 Influenza, Quadrivalent, Spl it, Preservative Free, Intramuscular 03/03/2018 Influenza, Trivalent, Cell C ulture-based MDCK, Preservative Free, Antibiotic Free, Intramuscular 07/25/2017 Influenza, Trivalent, IM (MDV) 05/01/2014 Influenza, Unspecified 03/25/2015 Tdap 03/03/2018 ZOSTER LIVE 01/18/2023 Surgical History Surgery Date Site/Laterality Comments CHOLECYSTECTOMY BREAST LUMPECTOMY DILATION AND CURETTAGE OF UTERUS ROTATOR CUFF REPAIR BREAST BIOPSY Left BREAST BIOPSY Left BREAST BIOPSY 09/19/2023 Left SINUS SURGERY Medical History Medical History Date Comments Prediabetes Steatohepatitis Sinusitis Nosebleed GERD (gastroesophageal reflux disease) Headache Diabetes mellitus (HCC) Family History Medical History Relation Name Comments Cancer Father Chey Hypertension Father Chey Prostate cancer Father Chey Seizures Father's Brother Chimino Cancer Mother Brittany Uterine cancer Mother Brittany Diabetes Mother's Brother 1 Diabetes Mother's Brother 2 Tanner Colon cancer Sister 1 Kathy Diabetes Sister 1 Kathy Hypertension Sister 1 Kathy Snoring Sister 1 Kathy Hypertension Sister 2 Zobeyda Kidney disease Sister 2 Zobeyda Snoring Sister 2 Zobeyda Cancer Sister 3 Dinora (sister) Osteoarthritis Sister 3 Dinora (sister) Osteoarthritis Sister 4 Marilyn Relation Name Status Comments Father Chey Father's Brother Amalia Mother Brittany Mother's Brother 1 Mother's Brother 2 Tanner Sister 1 Kathy Alive Sister 2 Zobeyda Alive Sister 3 Dinora (sister) Sister 4 Marilyn Social History Tobacco Use Types Packs/Day Years Used Date Smoking Tobacco: Former Cigarettes 0.3 10 Passive Smoke Exposure: Past Smokeless Tobacco: Never Tobacco Cessation:Counseling Given: Not Answered Social Connection and Isolat ion Panel [NHANES] Answer Date Recorded In a typical week, how many times do you talk on the phone with family, friends, or neighbors? More than three times a week 07/08/2022 How often do you get togethe r with friends or relatives? More than three times a week 07/08/2022 Attends Muslim Services Not on file 07/08 Active Member of Clubs or Organizations Not on f ile 07/08/2022 Attends Club or Organization Meetings Not on yani e 07/08/2022 Marital Status Not on file 07/08/2022 AUDIT-C Answer Date Recorded Q1: How often do you have a drink containing alcohol? Never 07/08/2022 Q2: How many drinks containi ng alcohol do you have on a typical day when you are drinking? Patient does not drink Q3: How often do you have si x or more drinks on one occasion? Never 07/08/2022 Overall Financial Resource Strain (CARDIA) Answe r Date Recorded How hard is it for you to pa y for the very basics like food, housing, medical care, and heating? Not hard at all 07/08/2022 PHQ-2 Answer Date Recorded PHQ-2 Total Score (If total score is 3 or more points, staff should administer the PHQ-9) 0 07/08/2022 [facility] [place] of Occupat ional Health - Occupational Stress Questionnaire Answer Date Recorded Do you feel stress - tense, restless, nervous, or anxious, or unable to sleep at night because your mind is troubled all the time - these days? To some extent 07/08/2022 Hunger Vital Sign Answer Date Recorded Within the past 12 months, y ou worried that your food would run out before you got the money to buy more. Never true 07/08/19 23 Within the past 12 months, t he food you bought just didn't last and you didn't have money to get more. Never true 07/08/2022 PRAPARE - Transportation Answer Date Re corded In the past 12 months, has l ack of transportation kept you from medical appointments or from getting medications? No 06/20 In the past 12 months, has l ack of transportation kept you from meetings, work, or from getting things needed for daily living? No 07/08/2022 Housing Stability Vital Sign Answer Aneesh e Recorded In the last 12 months, was t here a time when you were not able to pay the mortgage or rent on time? No 07/08/2022 In the last 12 months, how many places have you lived? 2 07/08/2022 In the last 12 months, was t here a time when you did not have a steady place to sleep or slept in a group home (including now)? No 07/08/2022 Comments No Sex and Gender Information Value Date Recorded Sex Assigned at Not on file Legal Sex Female 10:12 AM CDT Gender Identity Female 01/25/2023 11:40 AM CDT Sexual Orientation Not on file Obstetrics History Para Term AB IAB SAB Ectopic Multiple Livin g Live Births 3 3 3 Date Outcome GA Total Labor Labor/2nd/3rd Weight Sex Type Anes PTL Cara A1 A5 Name Clin Term Term Term Last Filed Vital Signs Vital Sign Reading Time Taken Comments Blood Pressure 116/72 04/17/2024 9:56 AM CDT Pulse 93 04/17/2024 9:56 AM CDT Temperature 36.5 C (97.7 F) 04/05/2024 1:51 PM CDT Respiratory Rate 16 12/07/2023 12:45 PM CDT Oxygen Saturation 97% 04/17/2024 9:56 AM CDT Inhaled Oxygen Concentration - - Weight 53.1 kg (117 lb) 04/17/2024 9:56 AM CDT Height 154.9 cm (5' 1 ) 04/17/2024 9:56 AM CDT Body Mass Index 22.11 04/17/2024 9:56 AM CDT Plan of Treatment Scheduled Procedures Name Priority Associated Diagnoses Date/Ti me COLONOSCOPY Screening for colon cancer Health Maintenance Due Date Last Done Comments Pneumococcal vaccine <65 (1 of 2 - PCV) 1970 Regular Well Visit/Exam 18-64 1982 Zoster Vaccine (1 of 2) 03/15/2023 01/18/2023 Depression Screening 07/08/2023 07/08/2022 Influenza Vaccine (#1) 2024 , 06/04/2022, 03/03/2018, Additional history exists Colon Cancer Screening-Colonoscopy 06/20/20242014 Breast Cancer Screening-Mammogram 09/06/2024 09/07/2023, 11/01/2022, 06/21/2022, Additional history exists DTaP/Tdap/Td Vaccine (2 - Td or Tdap) 03/03/2028 03/03/2018 Hepatitis C Screening Completed 07/08/2022 Hepatitis B Screening Completed 08/10/2022, 023 Medical Devices Implanted Type Area Requirements Analyst Device Identifier Shelf Expiration Date Model / Serial / Lot Bard Peripheral Vascular Ultraclip Bard 17ga 10cm 2 Trigger Permanent Ultrasound [id number] - [id number] Implanted:Qty: 1 on 09/19/2023 by Madelyn Springer MD at [facility] Left: Breast Bard Peripheral Vascular [id number] / / Procedures Procedure Name Priority Date/Time Associated Diagnosis Comments EGFR Routine 07/23/2024 2:37 PM CRANBERRY GROWER Elevated antinuclear antibody (GENA) level URINALYSIS, MICROSCOPIC ONLY Routine 07/23/2024 2:37 PM CRANBERRY GROWER Elevated antinuclear antibody (GENA) level DIFFERENTIAL AUTO Routine 07/23/2024 2:3 7 PM CRANBERRY GROWER Elevated antinuclear antibody (GENA) level CRP (ACUTE PHASE) Routine 07/23/2024 2:3 7 PM CRANBERRY GROWER Elevated antinuclear antibody (GENA) level ERYTHROCYTE SEDIMENTATION RATE Routine 07/23/2024 2:37 PM CRANBERRY GROWER Elevated antinuclear antibody (GENA) level C3 COMPLEMENT Routine 07/23/2024 2:37 PM CRANBERRY GROWER Elevated antinuclear antibody (GENA) level C4 COMPLEMENT Routine 07/23/2024 2:37 PM CRANBERRY GROWER Elevated antinuclear antibody (GENA) level PROTEIN / CREATININE RATIO, URINE, RANDOM Routine 07/23/2024 2:37 PM CRANBERRY GROWER Elevated antinuclear antibody (GENA) level ANTI-DOUBLE STRANDED DNA ANTIBODIES Routine 07/23/2024 2:37 PM CRANBERRY GROWER Elevated antinuclear antibody (GENA) level CBC WITH AUTO DIFFERENTIAL Routine 07/23/2024 2:37 PM CRANBERRY GROWER Elevated antinuclear antibody (GENA) level COMPREHENSIVE METABOLIC PANEL Routine 07/23/2024 2:37 PM CRANBERRY GROWER Elevated antinuclear antibody (GENA) level URINALYSIS AND REFLEX TO MICROSCOPIC AND CULTURE Routine 07/23/2024 2:37 PM CRANBERRY GROWER Elevated antinuclear antibody (GENA) level ANTI-NEUTROPHILIC CYTOPLASMIC ANTIBODY Routine 06/04/2024 11:21 AM CRANBERRY GROWER Sinusitis, unspecified chronicity, unspecified location STRESS ECHO EXERCISE WO DOPPLER/CF W CONTRAST Routine 05/10/2024 2:03 PM CRANBERRY GROWER Other chest pain DIAGNOSTIC MAMMOGRAM BILATERAL W MARCO Schedule Routine, Read Routine (OP Routine) 09/07/2023 7:57 AM CDT Nipple discharge HEPATITIS C ANTIBODY Routine 07/08/2022 2:05 PM CRANBERRY GROWER Fatty liver Health care maintenance from Last 3 Months or Most Recently Relevant to Health Maintenance Results * Anti-double stranded DNA abs (07/23/2024 2:37 PM CRANBERRY GROWER) dsDNA Ab <1.0 <=4.0 IUnits/mL Comment: Interpretive Data Negative: < or = 4 IUnits/mL Indeterminate: 5 - 9 IUnits/mL Positive: > or = 10 IUnits/mL Current interpretive data was last revised on 2016. Blood 07/23/2024 2:37 PM CRANBERRY GROWER 07/23/2024 3:04 PM CRANBERRY GROWER Akhil Landaverde MD LAB BL OOD ORDERABLES Final Result Performing Organization Address City/[facility]/ZIP Co de Phone Number [facility] [place] [address] * eGFR (07/23/2024 2:37 PM CRANBERRY GROWER) eGFR 78 >=60 mL/min/1. 73 m2 Comment: Interpretive Data Reference Interval Normal >/= 90 mL/min/1.73m2 Mildly decreased* 60 - 89 mL/min/1.73m2 Mildly to moderately decreased 45 - 59 mL/min/1.73m2 Moderately to severely decreased 30 - 44 mL/min/1.73m2 Severely decreased 15 - 29 mL/min/1.73m2 Kidney Failure < 15 mL/min/1.73m2 *Relative to young adult level Estimated glomerular filtration rate is determined by the 2020 CKD-EPI equation recommended by the National Kidney Foundation (A Unifying Approach to GFR Estimation: Recommendations of the NKF-ASK Task Force on Reassessing the Inclusion of Race in Diagnosing Kidney Disease, JASN 2020). The CKD-EPI equation should not be used for patients with unstable renal function and has not been validated in children and those over 70. Current interpretive data was last reviewed 2021. Blood 07/23/2024 2:37 PM CRANBERRY GROWER 07/23/2024 3:09 PM CRANBERRY GROWER us Akhil Landaverde MD LAB BL OOD ORDERABLES Final Result [facility] [place] [address] * Differential, auto (07/23/2024 2:37 PM CRANBERRY GROWER) Neutrophil abs 1.6 1.5 - 6.5 K/cumm Imm gran abs 0.0 0.0 - 0.1 K/cumm [facility] Lymphocyte abs 1.7 0.8 - 3.3 K/cumm [facility] Monocyte abs 0.4 0.2 - 0.8 K/cumm [facility] Eosinophil abs 0.1 0.0 - 0.5 K/cumm [facility] Basophil abs 0.0 0.0 - 0.1 K/cumm [facility] Neutrophil pct 41.2 % [facility] Comment: Interpretive Data Percent cell count reference ranges are not reported, since discordance with absolute values may lead to misinterpretation of CBC data. Current Interpretive Data was last revised on 2017. Imm gran pct 0.3 % [facility] Comment: Interpretive Data Percent cell count reference ranges are not reported, since discordance with absolute values may lead to misinterpretation of CBC data. Current Interpretive Data was last revised on 2017. Lymphocyte pct 43.8 % [facility] Comment: Interpretive Data Percent cell count reference ranges are not reported, since discordance with absolute values may lead to misinterpretation of CBC data. Current Interpretive Data was last revised on 2017. Monocyte pct 10.9 % [facility] Comment: Interpretive Data Percent cell count reference ranges are not reported, since discordance with absolute values may lead to misinterpretation of CBC data. Current Interpretive Data was last revised on 2017. Eosinophil pct 2.8 % [facility] Comment: Interpretive Data Percent cell count reference ranges are not reported, since discordance with absolute values may lead to misinterpretation of CBC data. Current Interpretive Data was last revised on 2017. Basophil pct 1.0 % [facility] Comment: Interpretive Data Percent cell count reference ranges are not reported, since discordance with absolute values may lead to misinterpretation of CBC data. Current Interpretive Data was last revised on 2017. Blood 07/23/2024 2:37 PM CRANBERRY GROWER 07/23/2024 3:04 PM CRANBERRY GROWER us Akhil Landaverde MD LAB BL OOD ORDERABLES Final Result [facility] Department [place] [address] * C4 complement (07/23/2024 2:37 PM CRANBERRY GROWER) Complement C4 30.8 10.0 - 40.0 mg/dL Blood 07/23/2024 2:37 PM CRANBERRY GROWER 07/23/2024 3:04 PM CRANBERRY GROWER Akhil Landaverde MD LAB BL OOD ORDERABLES Final Result [facility] Department [place] [address] * (ABNORMAL) Urinalysis reflex to microscopic and culture Urine (07/23/2024 2:37 PM CRANBERRY GROWER) Color, ur Straw Yellow Clarity, ur Clear Clear [facility] Specific gravity, ur 1.023 1.003 - 1.030 [facility] pH, urine 6.5 [facility] Comment: Interpretive Data U rine pH is affected by diet, medications, systemic acid-base disturbances, and renal tubular function. pH may affect urinary stone formation. For example, urine pH below 6.0 may help reduce the tendency for calcium phosphate stones and pH greater than 6.0 may reduce the tendency for uric acid stone formation. Source: [facility] Current Interpretive Data was last revised on 2017 Protein, ur ql Trace Negative [facility] Glucose, ur ql Negative Negative [facility] Ketones, ur Negative Negative [facility] Bilirubin, ur Negative Negative [facility] Blood, ur Negative Negative [facility] Urobilinogen, ur <2.0 <2.0 mg/dL [facility] Nitrite, ur Negative Negative [facility] Leukocyte esterase, ur 1+(A) Negative [facility] UA reflex comment Reflex to microscopic UA will be performed. [facility] Urine 07/23/2024 2:37 PM CRANBERRY GROWER 07/23/2024 3:04 PM CRANB[facility]Y GROWER Akhil Landaverde MD LAB MICROBIOLOGY - GENERAL ORDERABLES Final Result Performing Organization Address [facility] Co de Phone Number [facility] Department [place] [address] * CBC with auto differential (07/23/2024 2:37 PM CRANBERRY GROWER) [facility] WBC 4.0 3.8 - 9.9 K/cumm Hgb 12.2 11.9 - 15.5 g/dL [facility] Hct 37.2 35.6 - 45.5 % [facility] Plt 307 150 - 400 K/cumm [facility] MPV 9.2 9.1 - 12.3 fL [facility] RBC 4.04 3.90 - 5.20 M/cumm [facility] MCV 92.1 81.3 - 96.4 fL [facility] MCH 30.2 27.1 - 33.3 pg [facility] MCHC 32.8 32.3 - 35.7 g/dL [facility] RDW CV 13.5 11.1 - 14.9 % [facility] RDW SD 46.3 35.7 - 48.1 fL [facility] NRBC abs 0.00 0.00 - 0.01 K/cumm [facility] Blood 07/23/2024 2:37 PM CRANBERRY GROWER 07/23/2024 3:04 PM [facility]Y GROWER Akhil Landaverde MD LAB BL OOD ORDERABLES Final Result Performing Organization Address City/[facility] Co de Phone Number [facility] Department [place] [address] * Protein / creatinine ratio, urine, random (07/23/2024 2:37 PM CRANBERRY GROWER) [facility] Protein, ur, quant 7.5 mg/dL Comment: Interpretive Data No reference range established. Current interpretive data was last revised 2018. Creatinine Ur 133.1 mg/dL [facility] Comment: Interpretive Data No reference range established. Current interpretive data was last revised 2018. Protein/creatinin e ratio 56.3 0.0 - 180.0 mg/g CR [facility] Urine 07/23/2024 2:37 PM CRANBERRY GROWER 07/23/2024 3:04 PM [facility]AN[facility]Y GROWER Akhil Landaverde MD LAB UR INE ORDERABLES Final Result Performing Organization Address [facility] Co de Phone Number [facility] [place] [address] * (ABNORMAL) Urinalysis, microscopic only (07/23/2024 2:37 PM CRANBERRY GROWER) WBC, ur 0-5 0 - 5 /HPF RBC, ur 0-2 0 - 2 /HPF [facility] Epithelial cells, squamous, ur 1-5 0 - 5 /HPF [facility] Bacteria, ur Trace(A) [facility] Mucous, ur Present(A) [facility] Culture Reflex Comment Reflex conditions for urine culture (WBC >10) not met. [facility] Urine 07/23/2024 2:37 PM CRANBERRY GROWER 07/23/2024 3:04 PM CRANBERRY GROWER Akhil Landaverde MD LAB UR INE ORDERABLES Final Result Performing Organization Address [facility] Co de Phone Number [facility] [place] [address] * Erythrocyte sedimentation rate (07/23/2024 2:37 PM CRANBERRY GROWER) Erythrocyte sedimentation rate 19 1 - 30 mm/hr Blood 07/23/2024 2:37 PM CRANBERRY GROWER 07/23/2024 3:04 PM CRANBERRY GROWER Akhil Landaverde MD LAB BL OOD ORDERABLES Final Result Performing Organization Address [facility] Co de Phone Number [facility] Department [place] [address] * C3 complement (07/23/2024 2:37 PM CRANBERRY GROWER) Pathologist [facility] Complement C3 137.0 90.0 - 180.0 mg/dL Blood 07/23/2024 2:37 PM CRANBERRY GROWER 07/23/2024 3:04 PM CRANBERRY GROWER Akhil Landaverde MD LAB BL [place] [address] * CRP (acute phase) (07/23/2024 2:37 PM CRANBERRY GROWER) [facility] CRP <0.5 <=10.0 mg/L Blood 07/23/2024 2:37 PM CRANBERRY GROWER 07/23/2024 3:04 PM CRANBERRY GROWER Result [facility] Akhil Landaverde MD LAB BL OOD ORDERABLES Final Result Performing Organization Address City/[facility] [place] [address] * Comprehensive metabolic panel (07/23/2024 2:37 PM CRANBERRY GROWER) Pathologist [facility] Sodium 142 135 - 145 mmol/L Potassium, pl 4.4 3.3 - 4.9 mmol/L [facility] Chloride 108 97 - 110 mmol/L [facility] CO2 27 22 - 32 mmol/L [facility] Anion gap 7 2 - 15 mmol/L [facility] BUN 21 6 - 25 mg/dL [facility] Creatinine 0.85 0.60 - 1.10 mg/dL [facility] Glucose 127 70 - 199 mg/dL [facility] Comment: Interpretive Data Fasting glucose >/= 126 mg/dl is diagnostic for diabetes. Fasting is defined as no caloric intake for at least 8 hours. Fasting glucose between 100 mg/dl to 125 mg/dl is diagnostic of prediabetes. In a patient with classic symptoms of hyperglycemia or hyperglycemic crisis, a random glucose >/= 200 mg/dl is diagnostic for diabetes. In the absence of unequivocal hyperglycemia, results should be confirmed by repeat testing. The classification and Diagnosis of Diabetes Diabetes Care 2021; 46: S19-S40. Current interpretive data was last revised 2022. Calcium 9.2 8.5 - 10.3 mg/dL [facility] Bilirubin, total 0.5 0.1 - 1.2 mg/dL [facility] Protein, pl 7.9 6.5 - 8.5 g/dL [facility] Albumin 4.2 3.5 - 5.0 g/dL [facility] Alk phos 68 40 - 130 Units/L [facility] ALT 12 7 - 45 Units/L [facility] AST 22 10 - 45 Units/L [facility] Blood 07/23/2024 2:37 PM CRANBERRY GROWER 07/23/2024 3:04 PM CRANBERRY GROWER Akhil Landaverde MD LAB BL OOD ORDERABLES Final Result [facility] Department [place] [address] * ANCA (06/04/2024 11:21 AM CRANBERRY GROWER) Pathologist [facility] ANCA Screen NEGATIVE NEGATIVE [facility] [address] Comment: ANCA screen uses indirect immunofluorescence to detect antibodies to neutrophil cytoplasmic antigens. A positive screen reflexes to titer and pattern. Patterns include cytoplasmic (c-ANCA) and perinuclear (p-ANCA) both of which are associated with vasculitis, and atypical p-ANCA which is associated with inflammatory bowel disease and other disorders. Blood 06/04/2024 11:2 1 AM CRANBERRY GROWER 06/04/2024 11:22 AM CRANB[facility]Y GROWER Akhil Landaverde MD LAB BL OOD ORDERABLES Final Result [facility] [address] [place] [address] * STRESS ECHO EXERCISE WO DOPPLER/CF W CONTRAST (05/10/2024 2:03 PM CRANBERRY GROWER) Anatomical Region Laterality Modality Ultrasound 05/10/2024 1:43 PM CRANBERRY GROWER Narrative 05/10/2024 3:15 PM CRANBERRY GROWER [facility] Medical Group Cardiology [address], [place] [address] [address] [facility] [address], [place] [address] P:[phone] P:[phone] Echocardiographic Report Patient Name: CHARLIE WELCH G : 1965 Study Date: 05/10/2024 1:43:50 PM Gender: F Tech: Location: [facility] [facility] Provider: EMILY VILLEDA Height(Cm): 155 BSA: 1.53 Weight(Kg): 54.4 Heart Rate: 78 BP: 112 80 Quality: Good Order Provider: EMILY VILLEDA PROCEDURES: Stress Echo Report: Treadmill stress echocardiogram with Definity contrast. INDICATIONS: Medications: Pre-diabetes blood-glucose meter misc Use as directed Dispense: 1 each, Refills: 0 ordered 09/30/2022 - - Please give one touch verio meter matching with lancet and testing strip - Summary: Use as directed, Normal lancets (OneTouch Delica Lancets) 33 gauge misc Use to check blood sugars twice daily Dispense: 200 each, Refills: 3 ordered 05/27/2023 - - - - Summary: Use to check blood sugars twice daily, Normal OneTouch Verio test strips strip Use to monitor glucose twice daily. Dispense: 210 each, Refills: 3 ordered 04/13/2023 - TEE glucose monitoring sometime fasting 100-125, 45 minutes <200. Max twice daily. - Summary: Use to monitor glucose twice daily., Normal Unassociated B.animalis,bifid,infantis,long (PROBIOTIC 4X ORAL) - - - - - - Summary: Historical Med empagliflozin (JARDIANCE) 10 mg tablet Take 1 tablet (10 mg total) by mouth daily Dispense: 90 tablet, Refills: 3 ordered 01/13/2024 - - - - Summary: Take 1 tablet (10 mg total) by mouth daily, Starting Tue01/13/2024, Normal estradioL (EstroGel) 1.25 gram/actuation topical gel nightly 12/08/2016 - - - - Summary: nightly, Starting Tue12/08/2016, Historical Med hydrOXYzine (ATARAX) 50 mg tablet Take 0.25 tablets by mouth nightly 09/13/2022 - - - - Summary: Take 0.25 tablets by mouth nightly, Starting 09/13/2022, Historical Med ibandronate (BONIVA) 150 mg tablet TAKE ONE TABLET BY MOUTH ONCE A MONTH 11/07/2023 - - - - Summary: TAKE ONE TABLET BY MOUTH ONCE A MONTH, Historical Med perflutren lipid (DEFINITY) 1.5 mL in sodium chloride 0.9% 10 mL syringe (Completed) 1-10 mL, intravenous, Once in imaging (contrast) 05/10/2024 05/10/2024 - - - Summary: 1-10 mL, intravenous, Once in imaging, contrast, Starting on Marquita 05/10/24 at 1342, For 1 dose, Intra-Procedure (CV) progesterone (PROMETRIUM) 200 mg capsule Take 1 capsule (200 mg total) by mouth nightly 12/05/2016 - - - - Summary: Take 1 capsule (200 mg total) by mouth nightly, Starting 12/05/2016, Historical Med Stress test monitored by: Shonda Torres, and R07.89 Other chest pain. FINDINGS: Stress Echo: Protocol - Darron Protocol. Exercise Time - 7.31 min. Baseline Heart Rate - 87. Peak Heart Rate - 169. Predicted Maximal Heart Rate - 161. 85% MPHR - 137. Baseline BP - 112/80. Peak BP - 156/70. Rate Pressure Product - 59791. METS Achieved - 10.10. Percent Predicted Maximal HR Achieved - 105 %. Interpretation Site: Exam was interpreted at [facility]. Performance: Below average exercise functional capacity. Hemodynamic Response: Hypertensive blood pressure response. Arrhythmia: Rare PVC noted during stress. Termination: Leg fatigue. Resting ECG: Normal sinus rhythm with a ventricular rate of 70 beats per minute with no ischemic ST-T wave changes. Exercise ECG: Normal exercise ECG. Resting LV Function: Normal left ventricular size, normal systolic function, normal wall thickness with no segmental wall motion abnormalities at rest. Definity contrast agent used to visually enhance endocardial wall motion and contractility. 1362. Post Stress LV Function: Definity contrast agent used to visually enhance endocardial wall motion and contractility. Post stress left ventricular function was obtained at a heart rate of 125 beats per minute and did not show any wall motion abnormality. CONCLUSIONS: No ECG evidence of ischemia. No Echocardiographic evidence of ischemia at heart rate of 125 beats per minute. Leg fatigue with exertion. Electronically Signed By: Dr. Atilio Curry 2024-05-10 15:14:07 [facility] Procedure Note Atilio Curry MD - 05/10/2024 [facility] [address] [address] [id number], [place] [address] P:[phone] P:[phone] Echocardiographic Report Patient Name: CHARLIE WELCH G : 1965 Study Date: 05/10/2024 1:43:50 PM Gender: F Tech: Location: [facility] Provider: EMILY VILLEDA Height(Cm): 155 BSA: 1.53 Weight(Kg): 54.4 Heart Rate: 78 BP: 112 80 Quality: Good Order Provider: EMILY VILLEDA PROCEDURES: Stress Echo Report: Treadmill stress echocardiogram with Definity contrast. INDICATIONS: Medications: Pre-diabetes blood-glucose meter [facility] Use as directed Dispense: 1 each, Refills: 0ordered 09/30/2022 - - Please give one touch verio meter matching with lancet and testingstrip - Summary: Use as directed, Normal lancets (OneTouch Delica Lancets) [facility] Use to check blood sugarstwice daily Dispense: 200 each, Refills: 3 ordered 05/27/2023 - - - - Summary: Use to check blood sugars twice daily, Normal OneTouch Verio test strips strip Use to monitor glucose twice daily.Dispense: 210 each, Refills: 3 ordered 04/13/2023 - TEE glucose monitoring sometime -205, 45 minutes <200. Max twice daily. - Summary: Use to monitor glucose twice daily., Normal Unassociated B.animalis,bifid,infantis,long (PROBIOTIC 4X ORAL) - - - - - - Summary: Historical Med empagliflozin (JARDIANCE) 10 mg tablet Take 1 tablet (10 mg [facility] Dispense: 90 tablet, Refills: 3 ordered 01/13/2024 - - - - Summary: Take 1 tablet (10 mg total) by mouth daily, Starting Tue01/13/2024, Normal estradioL (EstroGel) 1.25 gram/actuation topical gel nightly 12/08/2016 -- - - Summary: nightly, Starting Tue12/08/2016, Historical Med hydrOXYzine (ATARAX) 50 mg tablet Take 0.25 tablets by mouth [id number]/13/2022 - - - - Summary: Take 0.25 tablets by mouth nightly, Starting Tue09/13/2022,Historical Med ibandronate (BONIVA) 150 mg tablet TAKE ONE TABLET BY MOUTH ONCE A MONTH11/07/2023 - - - - Summary: TAKE ONE TABLET BY MOUTH ONCE A MONTH, Historical Med perflutren lipid (DEFINITY) 1.5 mL in sodium chloride 0.9% 10 mL syringe(Completed) 1-10 mL, intravenous, Once in imaging (contrast) 05/10/2024 05/10/2024 - - - Summary: 1-10 mL, intravenous, Once in imaging, contrast, Starting on Tue05/10/24 at 1342, For 1 dose, Intra-Procedure (CV) progesterone (PROMETRIUM) 200 mg capsule Take 1 capsule (200 mg [facility]) [facility] 12/05/2016 - - - - Summary: Take 1 capsule (200 mg total) by mouth nightly, Starting Tue12/05/2016, Historical Med Stress test monitored by: Shonda Torres, and R07.89 Other chestpain. FINDINGS: Stress Echo: Protocol - Darron Protocol. Exercise Time - 7.31 min. Baseline Heart Rate -87. Peak Heart Rate - 169. Predicted Maximal Heart Rate - 161. 85% MPHR - 137. BaselineBP - 112/80. Peak BP - 156/70. Rate Pressure Product - 01700. METS Achieved - 10.10.Percent Predicted Maximal HR Achieved - 105 %. Interpretation Site: Exam was interpreted at [facility] [place]. Performance: Below average exercise functional capacity. Hemodynamic Response: Hypertensive blood pressure response. Arrhythmia: Rare PVC noted during stress. Termination: Leg fatigue. Resting ECG: Normal sinus rhythm with a ventricular rate of 70 beats per minute with noischemic ST-T wave changes. Exercise ECG: Normal exercise ECG. Resting LV Function: Normal left ventricular size, normal systolic function, normal wallthickness with no segmental wall motion abnormalities at rest. Definity contrast agent usedto visually enhance endocardial wall motion and contractility. 1362. Post Stress LV Function: Definity contrast agent used to visually enhance endocardial wall motionand contractility. Post stress left ventricular function was obtained at aheart rate of 125 beats per minute and did not show any wall motion abnormality. CONCLUSIONS: No ECG evidence of ischemia. No Echocardiographic evidence of ischemia at heart rate of 125 beats perminute. Leg fatigue with exertion. Electronically Signed By: Dr. Atilio Curry 2024-05-10 15:14:07 [facility] GROWER us Emily Villeda MD CV ECHO PROCEDURES Final Result * Diagnostic Mammogram Bilateral W Marco (09/07/2023 7:57 AM CDT) Anatomical Region Laterality Modality Breast Bilateral Mammography 09/07/2023 10:4 6 AM CDT Impressions 09/07/2023 10:46 AM CDT 1. A 0.6 cm hypoechoic intraductal mass in the left 3:00 subareolar breast, requiring ultrasound-guided biopsy for further characterization. No additional suspicious lesions in either breast. 2. Benign fibrocystic changes over palpable lump in the left breast 3:00 position 4 cm from the nipple. 3. No mammographic evidence of malignancy of right breast. Ultrasound of right retroareolar region is negative, with no ectasia or focal mass. The method of initial detection of finding was patient-reported clinical symptom (Pat). OVERALL FINAL ASSESSMENT: SUSPICIOUS. BI-RADS Category 4A: Low suspicion for malignancy. RECOMMENDATION: Ultrasound-guided biopsy of the 0.6 cm hypoechoic intraductal mass in the left breast subareolar region at the 3:00 position. Clinical follow-up for bilateral nipple discharge can also be obtained, as indicated. Dr. Velasquez discussed the above findings and recommendations with the patient. She has been scheduled to return to the [facility] for biopsy on 09/19/2023 at 8:30 AM. This facility will contact the referring clinician's office for an order. Dictated by: Jarod Jones M.D. The radiology attending physician has personally reviewed this study, and had reviewed and/or edited this written report and agrees with it. Electronically signed by: Manuela Velasquez MD Narrative 09/07/2023 10:46 AM CDT EXAMINATION: BILATERAL DIGITAL DIAGNOSTIC MAMMOGRAM INCLUDING CAD AND BILATERAL DIGITAL BREAST TOMOSYNTHESIS; BILATERAL BREAST SONOGRAM HISTORY: 58-year-old female with spontaneous bilateral whitish nipple discharge for the past 3 months and palpable left breast lump for the past month. History of remote left breast excisional biopsy (greater than 10 years ago) with reportedly benign results. COMPARISON: Multiple bilateral mammograms, most recently 11/01/2022. TECHNIQUE: Full field digital mammographic views of BOTH breasts were performed, including computer aided detection (CAD) and BILATERAL digital breast tomosynthesis (DBT). Directed ultrasound evaluation of BOTH breasts was performed. BREAST PARENCHYMAL COMPOSITION: The breasts are heterogenously dense, which may obscure small masses. MAMMOGRAM FINDINGS: Well-circumscribed, round mass of the subareolar left breast, stable over multiple examinations and considered benign. Scattered, benign-appearing coarse calcifications throughout the right breast. There is no suspicious abnormality in either breast. SONOGRAM FINDINGS: In the right subareolar region, there are no suspicious cystic or solid lesions identified. No significant duct ectasia is seen. In the left subareolar region at the 3:00 position, there is mild duct ectasia with a hypoechoic intraductal mass measuring approximately 0.6 x 0.4 x 0.3 cm in size without internal vascularity. In the left subareolar region at the 9:00 position, there is a 0.4 cm benign cyst with internal debris, corresponding to a stable benign left breast anteromedial subareolar mass seen on mammography. In the left breast 3:00 position 4 cm from the nipple in the region of the palpable abnormality, there is a cluster of cysts approximately 2 cm in largest dimension, favored to represent benign fibrocystic changes. Procedure Note Manuela Velasquez MD - 09/07/2023 EXAMINATION: BILATERAL DIGITAL DIAGNOSTIC MAMMOGRAM INCLUDING CAD AND BILATERAL DIGITAL BREAST TOMOSYNTHESIS; BILATERAL BREAST SONOGRAM HISTORY: 58-year-old female with spontaneous bilateral whitish nipple discharge for the past 3 months and palpable left breast lump for the past month. History of remote left breast excisional biopsy (greater than 10 years ago) with reportedly benign results. COMPARISON: Multiple bilateral mammograms, most recently 11/01/2022. TECHNIQUE: Full field digital mammographic views of BOTH breasts were performed, including computer aided detection (CAD) and BILATERAL digital breast tomosynthesis (DBT). Directed ultrasound evaluation of BOTH breasts was performed. BREAST PARENCHYMAL COMPOSITION: The breasts are heterogenously dense, which may obscure small masses. MAMMOGRAM FINDINGS: Well-circumscribed, round mass of the subareolar left breast, stable over multiple examinations and considered benign. Scattered, benign-appearing coarse calcifications throughout the right breast. There is no suspicious abnormality in either breast. SONOGRAM FINDINGS: In the right subareolar region, there are no suspicious cystic or solid lesions identified. No significant duct ectasia is seen. In the left subareolar region at the 3:00 position, there is mild duct ectasia with a hypoechoic intraductal mass measuring approximately 0.6 x 0.4 x 0.3 cm in size without internal vascularity. In the left subareolar region at the 9:00 position, there is a 0.4 cm benign cyst with internal debris, corresponding to a stable benign left breast anteromedial subareolar mass seen on mammography. In the left breast 3:00 position 4 cm from the nipple in the region of the palpable abnormality, there is a cluster of cysts approximately 2 cm in largest dimension, favored to represent benign fibrocystic changes. IMPRESSION: 1. A 0.6 cm hypoechoic intraductal mass in the left 3:00 subareolar breast, requiring ultrasound-guided biopsy for further characterization. No additional suspicious lesions in either breast. 2. Benign fibrocystic changes over palpable lump in the left breast 3:00 position 4 cm from the nipple. 3. No mammographic evidence of malignancy of right breast. Ultrasound of right retroareolar region is negative, with no ectasia or focal mass. The method of initial detection of finding was patient-reported clinical symptom (Pat). OVERALL FINAL ASSESSMENT: SUSPICIOUS. BI-RADS Category 4A: Low suspicion for malignancy. RECOMMENDATION: Ultrasound-guided biopsy of the 0.6 cm hypoechoic intraductal mass in the left breast subareolar region at the 3:00 position. Clinical follow-up for bilateral nipple discharge can also be obtained, as indicated. Dr. Velasquez discussed the above findings and recommendations with the patient. She has been scheduled to return to the [facility] for biopsy on 09/19/2023 at 8:30 AM. This facility will contact the referring clinician's office for an order. Dictated by: Jarod Jones M.D. The radiology attending physician has personally reviewed this study, and had reviewed and/or edited this written report and agrees with it. Electronically signed by: Manuela Velasquez MD us Not In File Miscellaneous IMG MAMMO PROCEDURES F inal Result * Hepatitis C antibody (07/08/2022 2:05 PM [facility]) Hep C Ab Nonreactive Nonreactive [facility] Comment:Antibodies to HCV no t detected. Does NOT exclude the possibility of recent exposure to HCV. 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
--- OUTSIDE RECORDS SUMMARY | 2024-08-04 11:35 | XMS_ITS | Referral Summary ---
Author Organization [facility] Physician Office Building [address] [place] [phone] Care Team Providers Care Solution Developer Name Role Phone Tara French MD Primary Care Provider Encounters Date Type Department Care Team Description 07/23/2024 6:45 PM [facility] Lab [facility] [address] [place] [phone] Elevated antinuclear antibody (GENA) level 07/23/2024 Orders Only [facility] Rheumatology [address] [place] [address] 5th [place] [address] [place] [address] Akhil Hernandez MD Elevated antinuclear antibody (GENA) level (Primary Dx) 2024 9:00 AM [employer] Office Visit [facility] ENT [address] [facility] Medical Office Building [address] [place] [address] Jovan May MD Nosebleed (Primary Dx); Sinusitis, unspecified chronicity, unspecified location 06/01/2024 Orders Only [facility] Rheumatology [address] [place] [address] 5th [place] [address] [place] [address] Akhil Hernandez MD Sinusitis, unspecified chronicity, unspecified location (Primary Dx) 05/10/2024 1:00 PM [employer] Ancillary Procedure [facility] Medical Group Cardiology [address] [facility] [address] [place] [phone] Other chest pain from Last 3 Months Allergies Active Allergy Reactions Criticality Noted Date [...] capsule/ampule in 250 mL of saline irrigations (NeilMed Sinus Rinse Bottle) and irrigate each nostril [...] tolerance 07/04/2016 Overview (03/15/2024): 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 a1c in 5 range . Menopausal syndrome 07/04/2016 Sinusitis Nosebleed Immunizations Name Administration Dates Next Due Hep A / Hep B 08/10/2022,07/08/2022 Influenza, Quadrivalent, Diane l Culture-based MDCK, Preservative Free, Antibiotic Free, Intramuscular 03/31/2023,06/04/2022 Influenza, Quadrivalent, Spl it, Preservative Free, Intramuscular 03/03/2018 Influenza, Trivalent, Cell C ulture-based MDCK, Preservative Free, Antibiotic Free, Intramuscular 07/25/2017 Influenza, Trivalent, IM (MDV) 05/01/2014 Influenza, Unspecified 03/25/2015 Tdap 03/03/2018 [facility] 01/18/2023 Social History Tobacco Use Types Packs/Day Years [...] than three times a week 07/08/2022 Attends [employer] Not on file 07/08 Active Member [...] you are drinking? Patient does not drink 3 Q3: How often do you have si [...] staff should administer the PHQ-9) 0 07/08/2022 [facility] - Occupational Stress [...] place to sleep or slept in a snf (including now)? No 07/08/2022 Comments No Sex and Gender Information Value Date Recorded Sex Assigned at Not on file Legal Sex Female 10:12 AM CDT Gender Identity Female 01/25/2023 11:40 AM CDT Sexual Orientation Not on file Last Filed Vital Signs Vital Sign Reading [...] Date/Ti me COLONOSCOPY Screening for colon cancer Medical Devices Implanted Type Area Solidworks Designer Device Identifier Shelf Expiration Date Model / Serial / Lot Bard Peripheral Vascular Ultraclip Bard 17ga 10cm 2 Trigger Permanent Ultrasound [id number] - [id number] Implanted:Qty: 1 on 09/19/2023 by Madelyn Springer MD at [facility] Left: Breast Bard Peripheral Vascular [id number] / / Procedures Procedure Name Priority Date/Time Associated Diagnosis Comments EGFR Routine 07/23/2024 2:37 PM [employer] Elevated antinuclear antibody (GENA) level URINALYSIS, MICROSCOPIC ONLY Routine 07/23/2024 2:37 PM [employer] Elevated antinuclear antibody (GENA) level DIFFERENTIAL AUTO Routine 07/23/2024 2:3 7 PM [employer] Elevated antinuclear antibody (GENA) level CRP (ACUTE PHASE) Routine 07/23/2024 2:3 7 PM [employer] Elevated antinuclear antibody (GENA) level ERYTHROCYTE SEDIMENTATION RATE Routine 07/23/2024 2:37 PM [employer] Elevated antinuclear antibody (GENA) level C3 COMPLEMENT Routine 07/23/2024 2:37 PM [employer] Elevated antinuclear antibody (GENA) level C4 COMPLEMENT Routine 07/23/2024 2:37 PM [employer] Elevated antinuclear antibody (GENA) level PROTEIN / CREATININE RATIO, URINE, RANDOM Routine 07/23/2024 2:37 PM [employer] Elevated antinuclear antibody (GENA) level ANTI-DOUBLE STRANDED DNA ANTIBODIES Routine 07/23/2024 2:37 PM [employer] Elevated antinuclear antibody (GENA) level CBC WITH AUTO DIFFERENTIAL Routine 07/23/2024 2:37 PM [employer] Elevated antinuclear antibody (GENA) level COMPREHENSIVE METABOLIC PANEL Routine 07/23/2024 2:37 PM [employer] Elevated antinuclear antibody (GENA) level URINALYSIS AND REFLEX TO MICROSCOPIC AND CULTURE Routine 07/23/2024 2:37 PM [employer] Elevated antinuclear antibody (GENA) level ANTI-NEUTROPHILIC CYTOPLASMIC ANTIBODY Routine 06/04/2024 11:21 AM [employer] Sinusitis, unspecified chronicity, unspecified location STRESS ECHO EXERCISE WO DOPPLER/CF W CONTRAST Routine 05/10/2024 2:03 PM [employer] Other chest pain DIAGNOSTIC MAMMOGRAM BILATERAL W MARCO Schedule Routine, Read Routine (OP Routine) 09/07/2023 7:57 AM CDT Nipple discharge HEPATITIS C ANTIBODY Routine 07/08/2022 2:05 PM [employer] Fatty liver Health care maintenance from Last 3 Months or Most Recently Relevant to Health Maintenance Results * Anti-double stranded DNA abs (07/23/2024 2:37 PM [employer]) dsDNA Ab <1.0 <=4.0 IUnits/mL Comment: Interpretive Data Negative: < or = 4 IUnits/mL Indeterminate: 5 - 9 IUnits/mL Positive: > or = 10 IUnits/mL Current interpretive data was last revised on 2016. Blood 07/23/2024 2:37 PM [employer] 07/23/2024 3:04 PM [employer] Akhil Landaverde MD LAB BL OOD ORDERABLES Final Result [facility] Department [place] [address] * eGFR (07/23/2024 2:37 PM [employer]) eGFR 78 >=60 mL/min/1. 73 m2 Comment: [...] last reviewed 2021. Blood 07/23/2024 2:37 PM [employer] 07/23/2024 3:09 PM [employer] us Akhil Landaverde MD LAB BL OOD ORDERABLES Final Result [facility] [place] [address] * Differential, auto (07/23/2024 2:37 PM [employer]) Neutrophil abs 1.6 1.5 - 6.5 K/cumm Imm gran abs 0.0 0.0 - 0.1 K/cumm [facility] Lymphocyte abs 1.7 0.8 - 3.3 K/cumm [facility] Monocyte abs 0.4 0.2 - 0.8 K/cumm [facility] Eosinophil abs 0.1 0.0 - 0.5 K/cumm [facility] Basophil abs 0.0 0.0 - 0.1 K/cumm [facility] Neutrophil pct 41.2 % [facility] Comment: Interpretive Data Percent cell count reference ranges are not reported, since discordance with absolute values may lead to misinterpretation of CBC data. Current Interpretive Data was last revised on 2017. Imm gran pct 0.3 % [facility] Comment: Interpretive Data Percent cell count reference ranges are not reported, since discordance with absolute values may lead to misinterpretation of CBC data. Current Interpretive Data was last revised on 2017. Lymphocyte pct 43.8 % [facility] Comment: Interpretive Data Percent cell count reference ranges are not reported, since discordance with absolute values may lead to misinterpretation of CBC data. Current Interpretive Data was last revised on 2017. Monocyte pct 10.9 % [facility] Comment: Interpretive Data Percent cell count reference ranges are not reported, since discordance with absolute values may lead to misinterpretation of CBC data. Current Interpretive Data was last revised on 2017. Eosinophil pct 2.8 % [facility] Comment: Interpretive Data Percent cell count reference ranges are not reported, since discordance with absolute values may lead to misinterpretation of CBC data. Current Interpretive Data was last revised on 2017. Basophil pct 1.0 % [facility] Comment: Interpretive Data Percent cell count reference ranges are not reported, since discordance with absolute values may lead to misinterpretation of CBC data. Current Interpretive Data was last revised on 2017. Blood 07/23/2024 2:37 PM [employer] 07/23/2024 3:04 PM [employer] us Akhil Landaverde MD LAB BL OOD ORDERABLES Final Result [facility] Department [place] [address] * C4 complement (07/23/2024 2:37 PM [employer]) Complement C4 30.8 10.0 - 40.0 mg/dL Blood 07/23/2024 2:37 PM [employer] 07/23/2024 3:04 PM [employer] Akhil Landaverde MD LAB BL OOD ORDERABLES Final Result [facility] One [facility] [place] [address] * (ABNORMAL) Urinalysis reflex to microscopic and culture Urine (07/23/2024 2:37 PM [employer]) Color, ur Straw Yellow Clarity, ur Clear Clear [facility] Specific gravity, ur 1.023 1.003 - 1.030 [facility] pH, urine 6.5 [facility] Comment: Interpretive Data U rine pH is affected by diet, medications, systemic acid-base disturbances, and renal tubular function. pH may affect urinary stone formation. For example, urine pH below 6.0 may help reduce the tendency for calcium phosphate stones and pH greater than 6.0 may reduce the tendency for uric acid stone formation. Source: [facility] [employer] Current Interpretive Data was last revised on 2017 Protein, ur ql Trace Negative [facility] Glucose, ur ql Negative Negative [facility] Ketones, ur Negative Negative [facility] Bilirubin, ur Negative Negative [facility] Blood, ur Negative Negative [facility] Urobilinogen, ur <2.0 <2.0 mg/dL [facility] Nitrite, ur Negative Negative [facility] Leukocyte esterase, ur 1+(A) Negative [facility] UA reflex comment Reflex to microscopic UA will be performed. [facility] Urine 07/23/2024 2:37 PM [employer] 07/23/2024 3:04 PM [employer] Akhil Landaverde MD LAB MICROBIOLOGY - GENERAL ORDERABLES Final Result Performing Organization Address City/[facility]/ZIP Co de Phone Number [facility] Department [place] [address] * CBC with auto differential (07/23/2024 2:37 PM [employer]) [facility] WBC 4.0 3.8 - 9.9 K/cumm Hgb 12.2 11.9 - 15.5 g/dL [facility] Hct 37.2 35.6 - 45.5 % [facility] Plt 307 150 - 400 K/cumm [facility] MPV 9.2 9.1 - 12.3 fL [facility] RBC 4.04 3.90 - 5.20 M/cumm [facility] MCV 92.1 81.3 - 96.4 fL [facility] MCH 30.2 27.1 - 33.3 pg [facility] MCHC 32.8 32.3 - 35.7 g/dL [facility] RDW CV 13.5 11.1 - 14.9 % [facility] RDW SD 46.3 35.7 - 48.1 fL [facility] NRBC abs 0.00 0.00 - 0.01 K/cumm [facility] Blood 07/23/2024 2:37 PM [employer] 07/23/2024 3:04 PM [employer] Akhil Landaverde MD LAB BL OOD ORDERABLES Final Result [facility] Department [place] [address] * Protein / creatinine ratio, urine, random (07/23/2024 2:37 PM [employer]) [facility] Protein, ur, quant 7.5 mg/dL Comment: Interpretive Data No reference range established. Current interpretive data was last revised 2018. Creatinine Ur 133.1 mg/dL [facility] Comment: Interpretive Data No reference range established. Current interpretive data was last revised 2018. Protein/creatinin e ratio 56.3 0.0 - 180.0 mg/g CR [facility] Urine 07/23/2024 2:37 PM [employer] 07/23/2024 3:04 PM [employer] Akhil Landaverde MD LAB UR INE ORDERABLES Final Result Performing Organization Address [facility] Co de Phone Number [facility] [place] [address] * (ABNORMAL) Urinalysis, microscopic only (07/23/2024 2:37 PM [employer]) WBC, ur 0-5 0 - 5 /HPF RBC, ur 0-2 0 - 2 /HPF [facility] Epithelial cells, squamous, ur 1-5 0 - 5 /HPF [facility] Bacteria, ur Trace(A) [facility] Mucous, ur Present(A) [facility] Culture Reflex Comment Reflex conditions for urine culture (WBC >10) not met. [facility] Urine 07/23/2024 2:37 PM [employer] 07/23/2024 3:04 PM [employer] Akhil Landaverde MD LAB UR INE ORDERABLES Final Result Performing Organization Address [facility] Co de Phone Number [facility] [place] [address] * Erythrocyte sedimentation rate (07/23/2024 2:37 PM [employer]) Erythrocyte sedimentation rate 19 1 - 30 mm/hr Blood 07/23/2024 2:37 PM [employer] 07/23/2024 3:04 PM [employer] Akhil Landaverde MD LAB BL OOD ORDERABLES Final Result Performing Organization Address [facility] Co de Phone Number [facility] Department [place] [address] * C3 complement (07/23/2024 2:37 PM [facility]) [facility] Complement C3 137.0 90.0 - 180.0 mg/dL Blood 07/23/2024 2:37 PM [employer] 07/23/2024 3:04 PM [employer] Akhil Landaverde MD LAB BL O[place] [address] * CRP (acute phase) (07/23/2024 2:37 PM [facility]) [facility] CRP <0.5 <=10.0 mg/L Blood 07/23/2024 2:37 PM [employer] 07/23/2024 3:04 PM [employer] Akhil Landaverde MD LAB BL OOD ORDERABLES Final Result Performing Organization Address City/[facility] [place] [address] * Comprehensive metabolic panel (07/23/2024 2:37 PM [employer]) [facility] Sodium 142 135 - 145 mmol/L Potassium, pl 4.4 3.3 - 4.9 mmol/L [facility] Chloride 108 97 - 110 mmol/L [facility] CO2 27 22 - 32 mmol/L [facility] Anion gap 7 2 - 15 mmol/L [facility] BUN 21 6 - 25 mg/dL [facility] Creatinine 0.85 0.60 - 1.10 mg/dL [facility] Glucose 127 70 - 199 mg/dL [facility] Comment: Interpretive Data Fasting glucose >/= 126 [...] Calcium 9.2 8.5 - 10.3 mg/dL [facility] Bilirubin, total 0.5 0.1 - 1.2 mg/dL [facility] Protein, pl 7.9 6.5 - 8.5 g/dL [facility] Albumin 4.2 3.5 - 5.0 g/dL [facility] Alk phos 68 40 - 130 Units/L [facility] ALT 12 7 - 45 Units/L [facility] AST 22 10 - 45 Units/L [facility] Blood 07/23/2024 2:37 PM [employer] 07/23/2024 3:04 PM [employer] Akhil Landaverde MD LAB BL OOD ORDERABLES Final Result [facility] Department [place] [address] * ANCA (06/04/2024 11:21 AM [employer]) [facility] ANCA Screen NEGATIVE NEGATIVE [facility] Comment: ANCA screen uses indirect immunofluorescence to detect antibodies to neutrophil cytoplasmic antigens. A positive screen reflexes to titer and pattern. Patterns include cytoplasmic (c-ANCA) and perinuclear (p-ANCA) both of which are associated with vasculitis, and atypical p-ANCA which is associated with inflammatory bowel disease and other disorders. Blood 06/04/2024 11:2 1 AM [employer] 06/04/2024 11:22 AM [employer] Akhil Landaverde MD LAB BL OOD ORDERABLES Final Result [facility] [address] [place] [address] * STRESS ECHO EXERCISE WO DOPPLER/CF W CONTRAST (05/10/2024 2:03 PM [employer]) Anatomical Region Laterality Modality Ultrasound 05/10/2024 1:43 PM [employer] Narrative 05/10/2024 3:15 PM [employer] [facility] Medical Group Cardiology [address] [facility] [address], [place] [address] [address] [facility] [address], [place] [address] P:[phone] P:[phone] Echocardiographic Report Patient Name: CHARLIE WELCH G : 1965 Study Date: 05/10/2024 1:43:50 PM Gender: F Tech: Location: [place] [facility] Provider: EMILY VILLEDA Height(Cm): 155 BSA: [...] BP - 156/70. Rate Pressure Product - 03491. METS Achieved - 10.10. Percent Predicted Maximal HR Achieved - 105 %. Interpretation Site: Exam was interpreted at [facility]. Performance: Below average exercise functional capacity. Hemodynamic [...] Signed By: Dr. Atilio Curry 2024-05-10 15:14:07 [employer] Procedure Note Atilio Curry MD - 05/10/2024 [facility] Medical Group Cardiology [address] [facility] [address], [place] [address] [address] [facility] [address] [place] [address] P:[phone] P:[phone] Echocardiographic Report Patient Name: CHARLIE WELCH G : 1965 Study Date: 05/10/2024 1:43:50 PM Gender: F Tech: Location: [facility] Provider: EMILY VILLEDA Height(Cm): 155 BSA: 1.53 Weight(Kg): 54.4 Heart Rate: 78 BP: 112 80 Quality: Good Order Provider: EMILY VILLEDA PROCEDURES: Stress Echo Report: Treadmill stress echocardiogram with Definity contrast. INDICATIONS: Medications: Pre-diabetes blood-glucose meter [facility] Use as directed Dispense: 1 each, Refills: 0ordered 09/30/2022 - - Please give one touch verio meter matching with lancet and testingstrip - Summary: Use as directed, Normal lancets (OneTouch Delica Lancets) 33 gauge [facility] Use to check blood sugarstwice daily Dispense: 200 each, Refills: 3 ordered 05/27/2023 - - - - Summary: Use to check blood sugars twice daily, Normal OneTouch Verio test strips strip Use to monitor glucose twice daily.Dispense: 210 each, Refills: 3 ordered 04/13/2023 - TEE glucose monitoring sometime [id number], 45 minutes <200. Max twice daily. - Summary: Use to monitor glucose twice daily., Normal Unassociated B.animalis,bifid,infantis,long (PROBIOTIC 4X ORAL) - - - - - - Summary: Historical Med empagliflozin (JARDIANCE) 10 mg tablet Take 1 tablet (10 mg total) [facility] [place] daily Dispense: 90 tablet, Refills: 3 ordered 01/13/2024 - - - - Summary: Take 1 tablet (10 mg total) by mouth daily, Starting Tue01/13/2024, Normal estradioL (EstroGel) 1.25 gram/actuation topical gel nightly 12/08/2016 -- - - Summary: nightly, Starting Tue12/08/2016, Historical Med hydrOXYzine (ATARAX) 50 mg tablet Take 0.25 tablets by mouth [id number]/13/2022 - - - - Summary: Take 0.25 [...] capsule Take 1 capsule (200 mg total) [address] [place] nightly 12/05/2016 - - - - Summary: [...] BP - 156/70. Rate Pressure Product - 47769. METS Achieved - 10.10.Percent Predicted Maximal HR [...] Signed By: Dr. Atilio Curry 2024-05-10 15:14:07 [employer] us Emily Villeda MD CV ECHO PROCEDURES [...] been scheduled to return to the [facility] for biopsy on 09/19/2023 at 8:30 AM. [...] been scheduled to return to the [facility] for biopsy on 09/19/2023 at 8:30 AM. [...] * Hepatitis C antibody (07/08/2022 2:05 PM [employer]) Hep C Ab Nonreactive Nonreactive [facility] Comment:Antibodies to HCV no t detected. Does NOT exclude the possibility of recent exposure to HCV. Current interpretive data was last revised on 22 Blood 07/08/2022 2:05 PM [employer] 07/08/2022 2:15 PM [employer] us Tara French MD LAB MICROBIOLOGY - GEN ERAL ORDERABLES Final Result [facility] [place] [address] from Last 3 Months or Most Recently Relevant to Health Maintenance Insurance [employer] [facility] O [facility] O Care Teams Solution Developer Relationship Specialty Start Date End Date Tara French MD [address] [place] [address] PCP - General Internal Medicine 07/08/22
[2024-08-04 11:37] VITALS: BP 137/89; PULSE 81; RESP 17; TEMP 36.7; O2SAT 100
--- NOTE | 2024-08-04 12:06 | ED.GENADULT ---
HPI - General Adult General Chief complaint: Fall Stated complaint: fall down steps, L back and rib pain Time Seen by Provider: 08/04/24 11:47 History of Present Illness HPI narrative: 59-year-old female presenting to the emergency department for evaluation after having a fall down multiple steps. Patient states she just awoke, she was wearing socks, and she was carrying a laundry basket and patient reports she fell on the 2nd stair and struck her back and posterior head on the way down. Patient denies any loss of consciousness. Patient denies head neck left lateral rib pain and left upper quadrant abdominal pain. Related Data Home Medications ?Medication ?Instructions ?Recorded ?Confirmed ?Last Taken ?Type hydroxychloroquine 200 mg tablet mg PO 08/04/24 08/03/24 History progesterone micronized 200 mg mg 08/04/24 08/03/24 History capsule Allergies Allergy/AdvReac Type Severity Reaction Status Date / Time latex AdvReac Mild Rash Verified 08/04/24 11:38 Review of Systems Review of Systems: All systems reviewed & are unremarkable except as noted in HPI and below [facility] Past Medical History Medical History Fatty liver Prediabetes diet controlled Family History Family History Sibling Pulmonary embolism Sibling Pulmonary embolism Father Hypertension Social History Social History Smoking status: Former smoker Additional smoking assessment comments: light, occasionally while in her 20s Exam Narrative: APPEARANCE: Uncomfortable appearing HEAD: normocephalic, tenderness to occiput with no laceration and no palpable hematoma. EYES: PERRLA/EOMI, conjunctivae clear. NOSE: Normal no drainage EARS:TMS clear with good light reflex. THROAT: Pharynx clear, no exudate. NECK: Supple. No adenopathy, no masses. RESPIRATORY: Airway patent, respirations nonlabored. Clear to auscultation bilaterally, no rales, rhonchi, wheezing. CARDIOVASCULAR: Regular rate and rhythm without murmurs rubs or gallops. ABDOMINAL: Left upper quadrant tenderness to palpation MUSCULOSKELETAL: Midline thoracic spine tenderness, left lateral rib tenderness to palpation NEURO: Alert. Cranial nerves II through XII intact. Good gait. Good coordination SKIN: Warm, dry. Normal Color Course Vital Signs Vital signs: Vital Signs Temperature 98.0 F 08/04/24 11:37 Pulse Rate 81 08/04/24 11:37 Respiratory Rate 17 08/04/24 11:37 Blood Pressure 137/89 08/04/24 11:37 Pulse Oximetry 100 08/04/24 11:37 Oxygen Delivery Room Air 08/04/24 11:37 Temperature 98.0 F 08/04/24 11:37 Pulse Rate 81 08/04/24 17:09 Respiratory Rate 20 08/04/24 17:09 Blood Pressure 117/83 08/04/24 17:09 Pulse Oximetry 99 08/04/24 17:09 Oxygen Delivery Room Air 08/04/24 11:37 Medical Decision Making MDM Narrative Medical decision making narrative: 59-year-old female presents emergency department for evaluation for a head injury. Patient is currently afebrile with no leukocytosis and hemoglobin of 12.3 no acute abnormalities on the patient's CMP UA was negative for protein negative for hematuria. Patient had a negative cervical spine, negative head CT and negative CT chest abdomen pelvis. Patient was updated results of her workup patient is comfortable plan for discharge home. Patient was advised to take Tylenol and ibuprofen for pain control patient was provided for Flexeril for muscle spasm. All questions concerns were addressed. Differential Diagnosis Differential Diagnosis: Severe number [place], subarachnoid hemorrhage, cervical spine fracture, intra-abdominal injury, spinal injury Vital Signs Vital Signs: Vital Signs Temperature 98.0 F 08/04/24 11:37 Pulse Rate 81 08/04/24 11:37 Respiratory Rate 17 08/04/24 11:37 Blood Pressure 137/89 08/04/24 11:37 Pulse Oximetry 100 08/04/24 11:37 Oxygen Delivery Room Air 08/04/24 11:37 Temperature 98.0 F 08/04/24 11:37 Pulse Rate 81 08/04/24 17:09 Respiratory Rate 20 08/04/24 17:09 Blood Pressure 117/83 08/04/24 17:09 Pulse Oximetry 99 08/04/24 17:09 Oxygen Delivery Room Air 08/04/24 11:37 Lab Data Lab results reviewed: Yes I reviewed the patient's lab results. 08/04/24 12:39 08/04/24 12:39 Labs: Lab Results 08/04/24 Range/Units 12:39 WBC 3.2 L (4.5-10.0) K/mm3 RBC 4.01 L (4.2-5.4) M/mm3 Hgb 12.3 (12.0-15.0) g/dL Hct 37.7 (37.0-47.0) % MCV 94.0 (80-100) fl MCH 30.7 (26-34) pg MCHC 32.6 (32-36) g/dl RDW 13.2 (11.5-14.5) % Plt Count 284 (150-375) k/mm3 MPV 9.1 (7.4-10.4) fl Immature Gran % (Auto) 0.3 (0-0.5) % Neut % (Auto) 36.6 L (45.5-73.1) % Lymph % (Auto) 44.7 H (18.3-44.2) % [place] % (Auto) 12.8 H (2.6-8.5) % Eos % (Auto) 5.3 H (0-4.4) % Baso % (Auto) 0.3 (0.2-1.2) % Lymph # (Auto) 1.43 (0.9-3.2) K/mm3 [place] # (Auto) 0.4 (0.1-0.6) K/mm3 Eos # (Auto) 0.2 (0-0.3) K/mm3 Baso # (Auto) 0.0 (0.0-0.1) K/mm3 Abs Immat Gran (auto) 0.01 (0.00-0.031) K/mm3 Absolute Neuts (auto) 1.2 L (1.3-6.7) K/mm3 Absolute Nucleated RBC 0.000 (0.0-0.012) K/mm3 Nucleated RBC % 0.0 (0.0-0.2) % PT 14.5 (11.1-14.7) Seconds INR 1.1 APTT 23.3 (22.3-36.8) Seconds Sodium 141 (137-145) mmol/L Potassium 4.0 (3.4-5.0) mmol/L Chloride 105 (98-107) mmol/L Carbon Dioxide 24 (22-30) mmol/L Anion Gap 12 (4-12) mmol/L BUN 19 H (7-17) mg/dL Creatinine 0.72 (0.7-1.0) mg/dL Estim Creat Clear Calc 54 ml/min Estimated GFR > 60 (59 - ) Glucose 99 (65-110) mg/dL Calcium 9.2 (8.4-10.2) mg/dL Total Bilirubin 0.9 (0.2-1.3) mg/dL AST 22 (14-36) U/L ALT 12 (6-35) U/L Alkaline Phosphatase 71 (38-126) U/L Total Protein 8.0 (6.3-8.2) g/dL Albumin 4.4 (3.5-5.1) g/dL Urine Color Yellow (Yellow) Urine Appearance Clear (Clear) Urine pH 7.5 (5.0-9.0) Ur Specific [place] 1.013 (1.001-1.035) Urine Protein Negative (Negative) mg/dL Urine Glucose (UA) Negative (Negative) mg/dL Urine Ketones Negative (Negative) mg/dL Ur Blood (Man) Negative (Negative) Urine Nitrate Negative (Negative) Urine Bilirubin Negative (Negative) Urine Urobilinogen 0.2 (<2.0) mg/dL Leukocyte Esterase Rfl Negative (Negative) YAMILETH/UL Imaging Data Radiologist's impression: Impressions Head CT 08/04/24 14:57 IMPRESSION: 1. Normal brain. No fracture or acute intracranial process. Cervical Spine CT 08/04/24 16:13 Impression: Straightening and slight reversal of the normal curvature of the cervical spine, likely muscular in origin. No acute fracture. Chest/Abdomen/Pelvis CT 08/04/24 16:28 IMPRESSION: No cross-sectional imaging evidence to suggest the presence of acute traumatic injury. Discharge Plan Discharge Clinical Impression: Head injury, Back pain Patient Disposition: Home, Self-Care Condition: Stable Instructions: Antibiotic Form, Head Injury (ED) Additional Instructions: Tylenol and ibuprofen for pain control. Flexeril for muscle spasm. Have close follow-up with your primary care physician. If you have any worsening symptoms then please call or return to the emergency department. Patient Language: Egyptian Prescriptions: New cyclobenzaprine 10 mg tablet 10 mg PO BID PRN (Reason: muscle spasm) Qty: 14 0RF No Action ibuprofen 600 mg tablet 600 mg PO TID PRN (Reason: pain) Qty: 20 0RF acetaminophen 500 mg capsule 1,000 mg PO Q6H PRN (Reason: pain) Qty: 20 0RF acetaminophen 500 mg tablet 1,000 mg PO TID PRN (Reason: perez) 7 Days Qty: 42 0RF ibuprofen 800 mg tablet 800 mg PO TID PRN (Reason: pain) 7 Days Qty: 21 0RF progesterone micronized 200 mg capsule hydroxychloroquine 200 mg tablet PO Follow-up/Referrals: UNKNOWN,DOCTOR [Primary Care Provider] -
[2024-08-04] MEDS: HYDROmorphone HCL INJ (*CRX) 1 MG/ML SYR 0.5 MG IV PUSH (12:36)
[2024-08-04] MEDS: ONDANSETRON INJ 4 MG/2 ML VIAL (12:51)
[2024-08-04 12:52] LABS: Basophils Percent Auto 0.3 % (0.2-1.2); Eosinophils Absolute Auto 0.2 K/mm3 (0-0.3); Eosinophils Percent Auto 5.3 % (0-4.4); Hematocrit 37.7 % (37.0-47.0); Hemoglobin 12.3 g/dL (12.0-15.0); Immature Granulocyte Absolute 0.01 K/mm3 (0.00-0.031); Immature Granulocyte Percent A 0.3 % (0-0.5); Lymphocytes Absolute Auto 1.43 K/mm3 (0.9-3.2); Lymphocytes Percent Auto 44.7 % (18.3-44.2); Mean Corpuscular HGB Conc 32.6 g/dl (32-36); Mean Corpuscular Hemoglobin 30.7 pg (26-34); Mean Platelet Volume 9.1 fl (7.4-10.4); Monocytes Absolute Auto 0.4 K/mm3 (0.1-0.6); Monocytes Percent Auto 12.8 % (2.6-8.5); Neutrophils Absolute Auto 1.2 K/mm3 (1.3-6.7); Neutrophils Percent Auto 36.6 % (45.5-73.1); Platelet Count Result 284 k/mm3 (150-375); Red Blood Count 4.01 M/mm3 (4.2-5.4); Red Cell Distribution Width 13.2 % (11.5-14.5); White Blood Count 3.2 K/mm3 (4.5-10.0)
[2024-08-04 12:53] LABS: Add Urine Microscopic? NO; Appearance Urine Clear (Clear); Bilirubin Urine Negative (Negative); Blood Urine Negative (Negative); Color Urine Yellow (Yellow); Glucose Urine UA Negative (Negative); Ketones Urine Negative (Negative); Leukocyte Esterase Ur Negative LEU/UL (Negative); Nitrate Urine Negative (Negative); Protein Urine Negative (Negative); Specific Grav Ur 1.013 (1.001-1.035); Urobilinogen Urine 0.2 mg/dL (<2.0); pH Urine 7.5 (5.0-9.0)
[2024-08-04 13:05] LABS: Alanine Aminotransferase 12 U/L (6-35); Albumin Level 4.4 g/dL (3.5-5.1); Alkaline Phosphatase 71 U/L (38-126); Anion Gap 12 mmol/L (4-12); Aspartate Amino Transferase 22 U/L (14-36); Bilirubin,Total 0.9 mg/dL (0.2-1.3); Blood Urea Nitrogen 19 mg/dL (7-17); Calcium 9.2 mg/dL (8.4-10.2); Carbon Dioxide 24 mmol/L (22-30); Chloride 105 mmol/L (98-107); Estimated CRCL calculation 54 ml/min; Estimated Glomerular Filt Rate > 60; Glucose 99 mg/dL (65-110); Sodium 141 mmol/L (137-145)
[2024-08-04 13:14] LABS: INR 1.1; Partial Thromboplastin Time 23.3 Seconds (22.3-36.8); Prothrombin Time 14.5 Seconds (11.1-14.7)
[2024-08-04 17:09] VITALS: BP 117/83; PULSE 81; RESP 20; O2SAT 99
== END 2024-08-04 17:10 | disposition home or self-care (01) ==
PROVIDERS: Emergency Provider Emergency Medicine
DX: S09.90XA Unspecified injury of head, initial encounter (principal); M54.9 Dorsalgia, unspecified; R73.03 Prediabetes; Z87.891 Personal history of nicotine dependence; W10.9XXA Fall (on) (from) unspecified stairs and steps, initial encounter
CPT/HCPCS: 36415; 70450; 71260; 72125; 74177; 80053; 81003; 85025; 85610; 85730; 96374; 99284; J1171; J2405; Q9967

== ENCOUNTER 2025-01-19 04:39 | Emergency (ER) | payer OTHER, SELFPAY ==
[2025-01-19] VITALS (16 sets, daily range): BP systolic 108–141; BP diastolic 73–86; PULSE 67–89; RESP 13–19; TEMP 36.7; O2SAT 96–100
--- NOTE | ~2025-01-19 | XR_ITS ---
EXAMINATION: XR chest 1V portable DATE: 01/19/2025 05:41 INDICATION: Chest pain. Shortness of breath. TECHNIQUE: frontal view of the chest was obtained. COMPARISON: Chest radiograph dated 01/21/[address] dated 08/04/2024 FINDINGS: Mi unchanged mild ld elevation right hemidiaphragm. No focal airspace opacities, pulmonary edema, ple ural effusion or pneumothorax. The cardiomediastinal silhouette is normal. Cholecystectomy clips in r ight upper quadrant. IMPRESSION: 1. Chronic mild elevation the right hemidiaphragm. No acute cardiopulmonary disease. Reviewed, dictated and finalized at location A. IMPRESSION: 1. Chronic mild elevation the right hemidiaphragm. No acute cardiopulmonary dis ease.
--- OUTSIDE RECORDS SUMMARY | 2025-01-19 04:41 | XMS_ITS | Clinical Summary ---
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 210 each 3 04/13/20 23 Active lancets (OneTouch Delica Lancets) 33 gauge miscIndication s:Pre-diabetes Use to check blood sugars twice daily 200 each 3 05/27/20 23 Active ibandronate (BONIVA) 150 mg tablet TAKE ONE TABLET BY MOUTH ONCE A MONTH 11/07/19 24 Active empagliflozin (JARDIANCE) 10 mg tablet Take 1 tablet (10 mg total) by mouth daily 90 tablet 3 01/13/20 24 Active B.animalis,bif id,infantis,lo ng (PROBIOTIC 4X ORAL) Active budesonide (Pulmicort) 0.5 mg/2 mL nebulizer solution Mix 1 capsule/ampule in 250 mL of saline irrigations (NeilMed Sinus Rinse Bottle) and irrigate each nostril with half of the bottle twice daily. 120 mL 5 06/07/20 24 Active hydroxychloroq uine (PLAQUENIL) 200 mg tabletIndicati ons:Connective Tissue Disease Take 1 tablet (200 mg total) by mouth daily 30 tablet 5 07/23/19 25 Active blood-glucose meter misc Use daily or as directed for monitoring of diabetes. 1 each 11/09/19 25 Active atorvastatin (LIPITOR) 10 mg tablet TAKE 1 TABLET BY MOUTH EVERY DAY 90 tablet 2 12/11/19 25 Active hydrOXYzine (ATARAX) 10 mg tablet Take 0.5 tablets (5 mg total) by mouth nightly as needed for itching 30 tablet 1 12/26/19 25 Active cyclobenzaprin e (FLEXERIL) 5 mg tablet Take 1 tablet (5 mg total) by mouth nightly as needed for muscle spasms 30 tablet 12/26/19 25 Active metFORMIN XR (GLUCOPHAGE XR) 500 mg 24 hr tablet Take 1 tablet (500 mg total) by mouth daily with breakfast 90 tablet 3 01/16/20 25 026 Active hydrOXYzine (ATARAX) 50 mg tablet Take 0.25 tablets by mouth nightly 09/14/19 23 025 Discontinued fluconazole (DIFLUCAN) 150 mg tablet Take 1 tablet (150 mg total) by mouth once for 1 dose Take one tab now. Repeat in 7 days if symptoms persist. 1 tablet 01/08/20 25 025 Active Problems Problem Noted Date Diagnosed Date Epigastric pain 09/13/2024 Screening for colon cancer 09/13/2024 Other chest pain 04/17/2024 Elevated antinuclear antibody [...] deficiency 08/09/2017 Impaired glucose tolerance 07/04/2016 Overview (09/13/2024): pre Is seeing service engineer dr brennan is on metformin currently . a1c in 5 range . Is seeing service engineer dr brennan is on metformin currently . a1c in 5 range . Menopausal syndrome 07/04/2016 Sinusitis Nosebleed Encounters Date Type Department Care Team Description 12/28/2024 1:45 PM CDT Ancillary Procedure [facility] [address] [place] [address] for Advanced Medicine 8th [place] [address] [place] [address] Left thigh pain 12/28/2024 Results Follow-Up [facility] [address], [address] [place] [phone] Alie Gerardo MD Urinalysis reflex to microscopic and culture Urine, C4 complement, C3 complement, Additional followed-up results: 8 12/26/2024 Telephone [facility] [address], [address] [place] [phone] Patrica Whittaker RN 12/25/2024 6:30 PM CDT Lab [facility] ([facility]) [address] [place] [phone] Dysuria; Left thigh pain 12/25/2024 5:36 PM CDT - 12/25/2024 11:59 PM CDT Hospital Encounter [facility] ([facility]) [address] [place] [phone] Left thigh pain Discharge Disposition: Discharge to home or self care 12/25/2024 5:13 PM CDT - 12/25/2024 11:59 PM CDT Hospital Encounter [facility] ([facility]) [address] [place] [phone] Left thigh pain Discharge Disposition: Discharge to home or self care 12/25/2024 4:20 PM CDT Office Visit [facility] [address] [place] [address] Advanced Medicine 12th [address] [place] [phone] Alie Gerardo MD Left thigh pain (Primary Dx); Dysuria; Osteopenia, unspecified location; Elevated antinuclear antibody (GENA) level 11/06/2024 Orders Only [facility] [address] [place] [address] [place] [address] Vernon Irizarry MD Gastroesophageal reflux disease, unspecified whether esophagitis present (Primary Dx) 11/02/2024 2:30 PM CDT - 11/02/2024 3:30 PM CDT Surgery [address] [address] Vernon Irizarry MD ESOPHAGOGASTRODUODENOSCOPY BIOPSY 11/02/2024 2:11 PM CDT Anesthesia Event [address] [address] Shasha Culver MD Ruamwijitphong, Witoon, CRNA 11/02/2024 1:18 PM CDT - 11/02/2024 3:31 PM CDT Hospital Encounter [address] [address] Vernon Irizarry MD Screen for colon cancer; Epigastric pain Discharge Disposition: Discharge to home or self care 11/02/2024 Results Follow-Up [facility] [address] [place] [address] [place] [address] Tara French MD EGD, Colonoscopy, Surgical pathology 10/30/2024 Telephone [facility] [address] [place] [phone] Doreen Mena RN GI PROCEDURE 3 DAY PRE CALL 10/29/2024 Telephone [facility] [address] [place] [address] Medical Office Building [address], [address] [place] [address] Missy Velez RN 10/26/2024 Telephone [facility] [place] [address] Doreen Mena RN GI PROCEDURE 7 DAY PRE CALL from Last 3 Months Immunizations Immunization Administration Dates Next Due Hep A / [...] Name Status Comments Father Chey Father's Brother Chimino Mother Brittany Mother's Brother 1 Mother's Brother [...] than three times a week 07/08/2022 Attends [employer] Not on file 07/08 Active Member [...] staff should administer the PHQ-9) 0 07/08/2022 [facility] - Occupational Stress [...] place to sleep or slept in a nursing home (including now)? No 07/08/2022 Personal Safety Answer Date Recorded Have you ever been in or are you currently in a harmful physical or emotional relationship or is someone making you feel afraid or unsafe? Denies 11/02/2024 Comments No Sex and Gender Information Value [...] Sign Reading Time Taken Comments Blood Pressure 138/86 12/25/2024 4:09 PM CDT Pulse 94 12/25/2024 4:09 PM CDT Temperature 36.5 C (97.7 F) 12/25/2024 4:09 PM CDT Respiratory Rate 17 11/02/2024 3:10 PM CDT Oxygen Saturation 100% 11/02/2024 3:10 PM CDT Inhaled Oxygen Concentration - - Weight 54.9 kg (121 lb) 12/25/2024 4:09 PM CDT Height 154.9 cm (5' 1) 12/25/2024 4:09 PM CDT Body Mass Index 22.86 12/25/2024 4:09 PM CDT Plan of Treatment Scheduled Procedures Name Priority Associated Diagnoses Date/Ti me COLONOSCOPY Open Access Screening for colon cancer ESOPHAGOGASTRODUODENOSCOPY Open Access Epigastric pain COLONOSCOPY Screening for colon cancer Health Maintenance Due Date Last Done Comments Regular Well Visit/Exam 18-64 1982 Pneumococcal vaccine <65 (1 of 2 - PCV) 1983 Zoster Vaccine (1 of 2) 03/15/2023 01/18/2023 Depression Screening 07/08/2023 07/08/2022 Breast Cancer Screening-Mammogram 09/06/2024 09/07/2023, 11/01/2022, 06/21/2022, Additional history exists Influenza Vaccine (#1) 2025 , 06/04/2022, 03/03/2018, Additional history exists DTaP/Tdap/Td Vaccine (2 - Td or Tdap) 03/03/2028 03/03/2018 Colon Cancer Screening-Colonoscopy 11/02/20342024, 06/20/2014 Hepatitis C Screening Completed 07/08/2022 Hepatitis B Screening Completed 08/10/2022, 023 Medical Devices Implanted Type Area Industrial Roof Plumber Device Identifier Shelf Expiration Date Model / Serial / Lot Bard Peripheral Vascular Ultraclip Bard 17ga 10cm 2 Trigger Permanent Ultrasound [id number] - [id number] Implanted:Qty: 1 on 09/19/2023 by Madelyn Springer MD at [facility] Left: Breast Bard Peripheral Vascular [id number] / / Procedures Procedure Name Priority Date/Time Associated Diagnosis Comments REFLEXIVE URINE CULTURE Routine 01/08/20 3:10 PM CDT URINALYSIS AND REFLEX TO MICROSCOPIC AND CULTURE Routine 01/07/2025 3:10 PM CDT Microscopic hematuria US VEIN DUPLEX LOWER EXTREMI TY LEFT LIMITED Schedule Routine, Read Routine (OP Routine) 12/28/2024 2:14 PM CDT Left thigh pain XR FEMUR LEFT 2 OR MORE VIEWS Schedule Routine, Read Routine (OP Routine) 12/25/2024 5:55 PM CDT Left thigh pain XR HIP LEFT 2 OR 3 VIEWS Schedule Routine, Read Routine (OP Routine) 12/25/2024 5:55 PM CDT Left thigh pain URINALYSIS, MICROSCOPIC ONLY Routine 01/2025 5:28 PM CDT Dysuria ERYTHROCYTE SEDIMENTATION RATE Routine 0 12/25/2024 5:28 PM CDT Left thigh pain CRP (ACUTE PHASE) Routine 12/25/2024 5:28 PM CDT Left thigh pain CREATINE KINASE (CK), TOTAL Routine 01/2025 5:28 PM CDT Left thigh pain C3 COMPLEMENT Routine 12/25/2024 5:28 PM CDT Left thigh pain C4 COMPLEMENT Routine 12/25/2024 5:28 PM CDT Left thigh pain URINALYSIS AND REFLEX TO MICROSCOPIC AND CULTURE Routine 12/25/2024 5:28 PM CDT Dysuria SURGICAL PATHOLOGY Routine 11/02/2024 2:19 PM CDT Screen for colon cancer Epigastric pain COLONOSCOPY 11/02/2024 2:11 PM CDT Screen for colon cancer Epigastric pain ESOPHAGOGASTRODUODENOSCOPY BIOPSY 11/02/2024 2:11 PM CDT Screen for colon cancer Epigastric pain POCT GLUCOSE DEVICE Routine 11/02/2024 2:02 PM CDT EGD 11/02/2024 1:32 PM CDT COLONOSCOPY 11/02/2024 1:31 PM CDT DIAGNOSTIC MAMMOGRAM BILATER AL W MARCO Schedule Routine, Read Routine (OP Routine) 09/07/2023 7:57 AM CDT Nipple discharge HEPATITIS C ANTIBODY Routine 07/08/2022 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 Comment:NO CULTURE INDICATED 01/07/2025 3:10 PM CDT 01/07/2025 3:10 PM CDT Alie Gerardo MD LAB MICROBIOLOGY - GEN ERAL ORDERABLES Final Result Performing Organization Address [facility]/ZIP Co de Phone Number [facility] [address] [address] NISHA Shane [phone] * (ABNORMAL) Urinalysis reflex to microscopic and culture Urine (01/07/2025 3:10 PM CDT) Color, ur YELLOW YELLOW [facility] Appearance, ur CLEAR CLEAR [facility] Specific gravity 1.022 1.001 - 1.035 [facility] pH, ur 6.5 5.0 - 8.0 [facility] Glucose, ur NEGATIVE NEGATIVE [facility] Bilirubin, ur NEGATIVE NEGATIVE [facility] Ketones, ur NEGATIVE NEGATIVE [facility] Blood, ur 1+(A) NEGATIVE [facility] Protein, ur, quant NEGATIVE NEGATIVE [facility] Nitrites, ur NEGATIVE NEGATIVE [facility] Leukocyte esterase, ur NEGATIVE NEGATIVE [facility] WBC, ur NONE SEEN < OR = 5 /HPF [facility] RBC, ur NONE SEEN < OR = 2 /HPF [facility] Epithelial cells, squamous, ur 0-5 < OR = 5 /HPF [facility] Bacteria, ur, quant NONE SEEN NONE SEEN /HPF [facility] Hyaline cast NONE SEEN NONE SEEN /LPF [facility] Note [facility] Comment: This urine was analyzed for the presence of WBC, RBC, bacteria, casts, and other formed elements. Only those elements seen were reported. Urine 01/07/2025 3:10 PM CDT 01/07/2025 3:10 PM CDT us Alie Gerardo MD LAB MICROBIOLOGY - GEN ERAL ORDERABLES Final Result Performing Organization Address [facility] Co de Phone Number [facility] [address] Administration NISHA Shane [phone] * US VEIN DUPLEX LOWER EXTREMITY LEFT LIMITED, UNILATERAL (12/28/2024 2:14 PM CDT) Anatomical Region Laterality Modality Vascular Left Ultrasound 12/28/2024 1:59 PM CDT Narrative 12/28/2024 7:05 PM CDT [facility] - Department of Vascular Surgery, Vascular Laboratory [address] [place] [address] Lower Extremity Venous Ultrasound Report Patient Name: CHARLIE WELCH : 1965 (59y 6m) Study Date: 12/28/2024 1:59:41 PM Gender: F Tech: MS Location: [facility] Provider: ALIE GERARDO Quality: Adequate Order Provider: ALIE GERARDO PROCEDURES: Vascular Report: Venous Duplex imaging was performed in the left lower extremity. The common femoral, femoral, popliteal, posterior tibial, peroneal veins were evaluated for patency, spontaneity and phasicity with Doppler, compression and augmentation maneuvers. Great saphenous vein proximal at the junction was evaluated with compression maneuvers. INDICATIONS: M79.652 Pain in left thigh. FINDINGS: Performing Metal Ceiling Builder: Magalis Roberson RDMS, T. Left: Venous Doppler signals in the left lower extremity are within normal limits for spontaneity and phasicity and respond normally to augmentation maneuvers. No evidence of deep vein thrombus by duplex, proximal to the calf. No evidence of superficial vein thrombus on the left. Comments: Contralateral common femoral vein is imaged for comparison and is patent. Unilateral (limited study) performed per M.D. order. CONCLUSIONS: 1. There is no evidence of acute deep vein thrombosis on the left. Noninvasive venous studies cannot rule out isolated calf vein obstruction. HISTORY: Not identified. PREVIOUS STUDIES: No previous studies for comparison. DISCLAIMER: The study images and the final report will be retained in the patient chart by the Vascular Laboratory for the legally required time period. This chart constitutes the legal record of any testing performed. ATTESTATION: I have reviewed and interpreted the pertinent images and measurements of this study. I attest to the conclusions in the final report that is provided above. Electronically Signed By: Luc Beasley MD FACS 12/28/2024 7:04:54 PM CDT Procedure Note Luc Beasley MD - 12/28/2024 [facility] - Department of Vascular Surgery,Vascular Laboratory [address] [place] [address] Lower Extremity Venous Ultrasound Report Patient Name: CHARLIE WELCH : 1965 (59y 6m) Study Date: 12/28/2024 1:59:41 PM Gender: F Tech: [place] Location: [facility] Provider: ALIE GERARDO Quality: Adequate Order Provider: ALIE GERARDO PROCEDURES: Vascular Report: Venous Duplex imaging was performed in the left lower extremity. Thecommon femoral, femoral, popliteal, posterior tibial, peroneal veins were evaluated forpatency, spontaneity and phasicity with Doppler, compression and augmentationmaneuvers. Great saphenous vein proximal at the junction was evaluated with compressionmaneuvers. INDICATIONS: M79.652 Pain in left thigh. FINDINGS: Performing Metal Ceiling Builder: Magalis Roberson RDMS, RVT. Left: Venous Doppler signals in the left lower extremity are within normallimits for spontaneity and phasicity and respond normally to augmentation maneuvers.No evidence of deep vein thrombus by duplex, proximal to the calf. No evidence ofsuperficial vein thrombus on the left. Comments: Contralateral common femoral vein is imaged for comparison and is patent.Unilateral (limited study) performed per M.D. order. CONCLUSIONS: 1. There is no evidence of acute deep vein thrombosis on the left.Noninvasive venous studies cannot rule out isolated calf vein obstruction. HISTORY: Not identified. PREVIOUS STUDIES: No previous studies for comparison. DISCLAIMER: The study images and the final report will be retained in the patientchart by the Vascular Laboratory for the legally required time period. This chartconstitutes the legal record of any testing performed. ATTESTATION: I have reviewed and interpreted the pertinent images and measurements ofthis study. I attest to the conclusions in the final report that is provided above. Electronically Signed By: Luc Beasley MD FACS 12/28/2024 7:04:54 PM CDT Alie Gerarod MD IM US PROCEDURES Rosaura l Result * XR Femur Left 2 or More Views (12/25/2024 5:55 PM CDT) Anatomical Region Laterality Modality Lower Extremities, Thigh, Femur Left Computed Radiography 12/26/2024 6:24 AM CDT Impressions 12/26/2024 6:24 AM CDT 1. No acute radiographic findings of the left hip and thigh 2. Minimal left hip osteoarthritis Electronically signed by: Ty Mares MD, PHD Narrative 12/26/2024 6:24 AM CDT EXAMINATION: Left hip 2+ views; left femur 2+ views HISTORY: Left hip and thigh pain FINDINGS: 2 radiographs of the pelvis and 4 radiographs the left femur are submitted without comparison. There is minimal left hip osteoarthritis. Heterotopic ossification is noted adjacent to the greater trochanter. Enthesopathy is noted throughout the pelvis. There is normal alignment and no acute fracture. Procedure Note Ty Mares MD PhD - 12/26/2024 EXAMINATION: Left hip 2+ views; left femur 2+ views HISTORY: Left hip and thigh pain FINDINGS: 2 radiographs of the pelvis and 4 radiographs the left femur are submitted without comparison. There is minimal left hip osteoarthritis. Heterotopic ossification is noted adjacent to the greater trochanter. Enthesopathy is noted throughout the pelvis. There is normal alignment and no acute fracture. IMPRESSION: 1. No acute radiographic findings of the left hip and thigh 2. Minimal left hip osteoarthritis Electronically signed by: Ty Mares MD, PHD Alie Gerardo MD IMG XR PROCEDURES Rosaura l Result * XR Hip Left 2+ Vw (12/25/2024 5:55 PM CDT) Anatomical Region Laterality Modality Lower Extremities, Hip, Pelvis Left C omputed Radiography 12/26/2024 6:24 AM CDT Impressions 12/26/2024 6:24 AM CDT 1. No acute radiographic findings of the left hip and thigh 2. Minimal left hip osteoarthritis Electronically signed by: Ty Mares MD, PHD Narrative 12/26/2024 6:24 AM CDT EXAMINATION: Left hip 2+ views; left femur 2+ views HISTORY: Left hip and thigh pain FINDINGS: 2 radiographs of the pelvis and 4 radiographs the left femur are submitted without comparison. There is minimal left hip osteoarthritis. Heterotopic ossification is noted adjacent to the greater trochanter. Enthesopathy is noted throughout the pelvis. There is normal alignment and no acute fracture. Procedure Note Ty Mares MD PhD - 12/26/2024 EXAMINATION: Left hip 2+ views; left femur 2+ views HISTORY: Left hip and thigh pain FINDINGS: 2 radiographs of the pelvis and 4 radiographs the left femur are submitted without comparison. There is minimal left hip osteoarthritis. Heterotopic ossification is noted adjacent to the greater trochanter. Enthesopathy is noted throughout the pelvis. There is normal alignment and no acute fracture. IMPRESSION: 1. No acute radiographic findings of the left hip and thigh 2. Minimal left hip osteoarthritis Electronically signed by: Ty Mares MD, PHD Alie Gerardo MD IMG XR PROCEDURES Rosaura l Result * C4 complement (12/25/2024 5:28 PM CDT) Complement C4 29.0 10.0 - 40.0 mg/dL Blood 12/25/2024 5:28 PM CDT 12/25/2024 5:51 PM CDT Alie Gerardo MD LAB BLOOD ORDERABLES F inal Result [facility] [place] [address] * (ABNORMAL) Urinalysis reflex to microscopic and culture Urine (12/25/2024 5:28 PM CDT) Color, ur Straw Yellow Clarity, ur Clear Clear [facility] Specific gravity, ur 1.033(H) 1.003 - 1.030 [facility] pH, urine 5.5 [facility] Comment: Interpretive Data U rine pH is affected by diet, medications, systemic acid-base disturbances, and renal tubular function. pH may affect urinary stone formation. For example, urine pH below 6.0 may help reduce the tendency for calcium phosphate stones and pH greater than 6.0 may reduce the tendency for uric acid stone formation. Source: [place] [employer] Current Interpretive Data was last revised on 2017 Protein, ur ql Negative Negative [facility] Glucose, ur ql 4+(A) Negative [facility] Ketones, ur Negative Negative [facility] Bilirubin, ur Negative Negative [facility] Blood, ur 2+(A) Negative [facility] Urobilinogen, ur <2.0 <2.0 mg/dL [facility] Nitrite, ur Negative Negative [facility] Leukocyte esterase, ur 1+(A) Negative [facility] UA reflex comment Reflex to microscopic UA will be performed. [facility] Urine 12/25/2024 5:28 PM CDT 12/25/2024 5:51 PM CDT Alie Gerardo MD LAB MICROBIOLOGY - GEN ERAL ORDERABLES Final Result Performing Organization Address [facility] de Phone Number [facility] [place] [address] * (ABNORMAL) Urinalysis, microscopic only (12/25/2024 5:28 PM CDT) WBC, ur 0-5 0 - 5 /HPF RBC, ur 6-10(A) 0 - 2 /HPF [facility] Epithelial cells, squamous, ur 1-5 0 - 5 /HPF [facility] Bacteria, ur Trace(A) [facility] Mucous, ur Present(A) [facility] Culture Reflex Comment Reflex conditions for urine culture (WBC >10) not met. [facility] Urine 12/25/2024 5:28 PM CDT 12/25/2024 5:51 PM CDT us Alie Gerardo MD LAB URINE ORDERABLES F inal Result Performing Organization Address [facility] Co de Phone Number [facility] [place] [address] * Erythrocyte sedimentation rate (12/25/2024 5:28 PM CDT) Erythrocyte sedimentation rate 16 1 - 30 mm/hr Blood 12/25/2024 5:28 PM CDT 12/25/2024 5:51 PM CDT Alie Gerardo MD LAB BLOOD ORDERABLES F inal Result Performing Organization Address [facility] Co de Phone Number [facility] Department [place] [address] * C3 complement (12/25/2024 5:28 PM CDT) Complement C3 153.0 90.0 - 180.0 mg/dL Blood 12/25/2024 5:28 PM CDT 12/25/2024 5:51 PM CDT us Alie Gerardo MD LAB BLOOD ORDERAB[place] [address] * CRP (acute phase) (12/25/2024 5:28 PM CDT) CRP <0.5 <=10.0 mg/L Blood 12/25/2024 5:28 PM CDT 12/25/2024 5:51 PM CDT us Alie Gerardo MD LAB BLOOD ORDERABLES F inal Result Performing Organization Address City/[facility]/[place] [address] * Creatine kinase (CK), total (12/25/2024 5:28 PM CDT) CK 65 30 - 200 Units/L Blood 12/25/2024 5:28 PM CDT 12/25/2024 5:51 PM CDT Alie Gerardo MD LAB BLOOD ORDERABLES F inal Result Performing Organization Address City/[facility]/[place] [address] * Surgical pathology (11/02/2024 2:19 PM CDT) Tissue (Gastric/Stomach biopsy) 11/02/2024 2:19 PM CDT Tissue specimen (specimen) (Gastric/Stomach biopsy) 11/02/2024 2:20 PM CDT Narrative PATHOLOGY [facility] - 11/05/2024 4:49 PM CDT EPIC results best viewed via link to PDF [facility] Laboratory [place] [address] Note to Patients: This report may contain a detailed description of human tissue sent by a health care provider to the laboratory for pathologic evaluation. The content of this report is essential for diagnosis and may provide important critical findings. This information may be unfamiliar to patients to review without a medical professional present. It is advised that the patient review this report in the presence of a health care provider who can answer questions and explain the details. SURGICAL PATHOLOGY REPORT FINAL Patient Name: CHARLIE WELCH Gender: F : 1965 (Age: 59) Address: [address] [place] [address] Hospital #: [id number] Taken:11/02/2024 Received:11/02/2024 Reported: 11/05/2024 Patient Type: [facility] Service: Gastro Location: Physician(s): Rosie Faulkner M.D. Diagnosis: A. Stomach, antrum, biopsy: - Antral and gastric transitional mucosa with mild chronic inflammation. - No Helicobacter pylori is seen on H&E stained slides. B. Stomach, body, biopsy: - Oxyntic mucosa with mild chronic inflammation. - No Helicobacter pylori is seen on H&E stained slides. [facility]/11/05/2024 08:08 By this signature, I attest that the above diagnosis is based upon my personal examination of the slides(and/or other material indicated in the diagnosis). Albertina Naidu MD, PHD Report Electronically Reviewed and Signed Out By Albertina Naidu MD, PHD 11/05/2024 16:49:48 Tali Ni D.O. History: The patient is a 59-year-old woman presenting for screening for colon cancer; epigastric pain. Operative procedure: Upper endoscopy with biopsy; colonoscopy. Specimen(s) Received: A: Cold bx,gstric antrum biopsies B: Cold bx,gastric body biopsies Gross Description: Received in two formalin jars labeled with the patient's identifiers. A. Labeled gastric antrum and consists of three steinberg-pink fragment(s) of soft tissue measuring 0.2-0.4 cm each in greatest dimension. Labeled A1. Jar 0. B. Labeled gastric body and consists of three steinberg fragment(s) of soft tissue measuring 0.3-0.7 cm each in greatest dimension. Labeled B1. Jar 0. sxst/11/02/2024 17:59 PA(s): Reina Ross By this signature, I attest that the above diagnosis is based upon my personal examination of the slides(and/or other material). Addenda/Procedures The performance characteristics of some immunohistochemical stains, fluorescence in-situ hybridization tests and immunophenotyping by flow cytometry cited in this report (if any) were determined by the Surgical Pathology and Flow Cytometry Departments at [facility] as part of an ongoing quality control microbiology supervisor program and in compliance with federally mandated regulations drawn from the Clinical Laboratory Improvement Act of 1988 (CLIA '88). Some of these tests rely on the use of analyte specific reagents and are subject to specific labeling requirements by the US Food and Drug Administration. Such diagnostic tests may only be performed in a facility that is certified by the Department of Health and Human Services as a high complexity laboratory under CLIA '88. The FDA has determined that such clearance or approval is not necessary. This test is used for clinical purposes. It should not be regarded as investigational or for research. Nevertheless, federal rules concerning the medical use of analyte specific reagents require that the following disclaimer be attached to the report: This test was developed and its performance characteristics determined by the Surgical Pathology and Flow Cytometry Departments of [facility]. It has not been cleared or approved by the U. S. Food and Drug Administration. IMAGES AND SCANNED DOCUMENTS, IF INCLUDED, ONLY VIEWABLE IN PDF VERSION OF REPORT Vernon Irizarry MD LAB PATHOLOGY ORDERABL ES Final Result PATHOLOGY [facility] 3rd Floor [place], [place] [phone] * POCT glucose (11/02/2024 2:02 PM CDT) Glucose, POC 81 70 - 199 mg/dL Blood 11/02/2024 2:02 PM CDT 11/02/2024 2:02 PM CDT us Vernon Irizarry MD LAB POCT ORDERABLES - DEVICE Final Result [facility] Department [place] [address] * EGD (11/02/2024 1:32 PM CDT) Anatomical Region Laterality Modality Other Narrative Procedure Note Vernon Irizarry MD - 11/02/2024 1:32 PM CDT [facility] ENDOSCOPY [facility] Patient Name: Charlie Welch Procedure Date: 11/02/2024 1:32 PM Date of : 1965 Admit Type: Outpatient Age: 59 Gender: Female Attending MD: Vernon Irizarry M.D. Room: [facility] ENDOSCOPY ROOM 8 Note Status: Finalized Procedure: Upper GI endoscopy Indications: Epigastric abdominal pain Referring MD: Tara French M.D. Providers: Vernon Irizarry M.D. Medicines: Monitored Anesthesia Care Complications: No immediate complications. Estimated Blood Loss: Estimated blood loss was minimal. Procedure: Pre-Anesthesia Assessment: - Prior to the procedure, a History and Physicalwas performed, and patient medications and allergieswere reviewed. The patient is competent. The risks and benefits of the procedure and the sedation optionsand risks were discussed with the patient. Allquestions were answered and informed consent was obtained. Patient identification and proposed procedure were verified by the physician in the pre-procedurearea. Mental Status Examination: alert and oriented.Airway Examination: normal oropharyngeal airway and neck mobility. Respiratory Examination: clear to auscultation. CV Examination: normal. Prophylactic Antibiotics: The patient does not requireprophylactic antibiotics. Prior Anticoagulants: The patient has taken no anticoagulant or antiplatelet agents. ASA Grade Assessment: II - A patient with mild systemic disease. After reviewing the risks and benefits,the patient was deemed in satisfactory condition to undergo the procedure. The anesthesia plan was touse monitored anesthesia care (MAC). Immediately priorto administration of medications, the patient was re-assessed for adequacy to receive sedatives. The heart rate, respiratory rate, oxygen saturations, blood pressure, adequacy of pulmonary ventilation,and response to care were monitored throughout the procedure. The physical status of the patient was re-assessed after the procedure. The benefits, risks, and alternatives to theprocedure and sedation were discussed and informed consentwas obtained. The scope was passed under direct vision. The GIF [id number] endoscope was introduced through the mouth, and advanced to the third partof duodenum. The upper GI endoscopy was accomplished without difficulty. The patient tolerated the procedure well. Findings: The esophagus was normal. A medium-sized hiatal hernia was present. The gastric fundus, gastric body, gastric antrum, prepyloric regionof the stomach and pylorus were normal. Biopsies were taken with a cold forceps for histology. Biopsies were taken from the antrum and thebody. The examined duodenum was normal. Impression: - Normal esophagus. - Medium-sized hiatal hernia. - Normal gastric fundus, gastric body, antrum, prepyloric region of the stomach and pylorus.Biopsied. - Normal examined duodenum. Recommendation: - Perform a colonoscopy today. Attending Participation: I personally performed the entire procedure. Electronically signed by Vernon Irizarry MD Vernon Irizarry M.D. 11/02/2024 2:24:57 PM . Number of Addenda: 0 Note Initiated On: 11/02/2024 1:32 PM us Vernon Irizarry MD ENDOSCOPY PROCEDURES F inal Result * Colonoscopy (11/02/2024 1:31 PM CDT) Anatomical Region Laterality Modality Other Narrative Procedure Note Vernon Irizarry MD - 11/02/2024 1:31 PM CDT [facility] Patient Name: Charlie Welch Procedure Date: 11/02/2024 1:31 PM Date of : 1965 Admit Type: Outpatient Age: 59 Gender: Female Attending MD: Vernon Irizarry M.D. Room: [facility] ENDOSCOPY ROOM 8 Note Status: Finalized Procedure: Colonoscopy Indications: Screening for colorectal malignant neoplasm, Last colonoscopy: January 2015 Referring MD: Tara French M.D. Providers: Vernon Irizarry M.D. Medicines: Monitored Anesthesia Care Complications: No immediate complications. Estimated Blood Loss: Estimated blood loss: none. Procedure: Pre-Anesthesia Assessment: - Prior to the procedure, a History and Physicalwas performed, and patient medications and allergieswere reviewed. The patient is competent. The risks and benefits of the procedure and the sedation optionsand risks were discussed with the patient. Allquestions were answered and informed consent was obtained. Patient identification and proposed procedure were verified by the physician in the pre-procedurearea. Mental Status Examination: alert and oriented.Airway Examination: normal oropharyngeal airway and neck mobility. Respiratory Examination: clear to auscultation. CV Examination: normal. Prophylactic Antibiotics: The patient does not requireprophylactic antibiotics. Prior Anticoagulants: The patient has taken no anticoagulant or antiplatelet agents. ASA Grade Assessment: II - A patient with mild systemic disease. After reviewing the risks and benefits,the patient was deemed in satisfactory condition to undergo the procedure. The anesthesia plan was touse monitored anesthesia care (MAC). Immediately priorto administration of medications, the patient was re-assessed for adequacy to receive sedatives. The heart rate, respiratory rate, oxygen saturations, blood pressure, adequacy of pulmonary ventilation,and response to care were monitored throughout the procedure. The physical status of the patient was re-assessed after the procedure. - Immediately prior to administration ofmedications, the patient was re-assessed for adequacy to receive sedatives. - The risks and benefits of the procedure and the sedation options and risks were discussed with the patient. All questions were answered and informed consent was obtained. The benefits, risks and alternatives of theprocedure and sedation were discussed and informed consentwas obtained. All questions were answered. Please referto the signed informed consent document in the medical record. The bowel preparation used was GoLYTELY via split dose instruction. The scope was passed under direct vision. The CF [id number] endoscope was introduced through the anus and advanced to thececum, identified by appendiceal orifice and ileocecalvalve. The colonoscopy was performed without difficulty.The patient tolerated the procedure well. The qualityof the bowel preparation was adequate. The quality ofthe bowel preparation was evaluated using the BBPS([place] Bowel Preparation Scale) with scores of: RightColon = 3, Transverse Colon = 3 and Left Colon = 3 (entire mucosa seen well with no residual staining, small fragments of stool or opaque liquid). The totalBBPS score equals 9. Findings: The entire examined colon appeared normal. Retroflexion in the right colon was performed. Impression: - The entire examined colon is normal. - No specimens collected. Recommendation: - Discharge patient to home. - Repeat colonoscopy in 10 years for screening purposes. Attending Participation: I personally performed the entire procedure. Electronically signed by Vernon Irizarry MD Vernon Irizarry M.D. 11/02/2024 2:49:04 PM . Number of Addenda: 0 Note Initiated On: 11/02/2024 1:31 PM Vernon Irizarry MD ENDOSCOPY PROCEDURES F inal Result * Diagnostic Mammogram Bilateral W Marco [...] has been scheduled to return to the [facility] for biopsy on 09/19/2023 at 8:30 AM. This facility will contact the referring clinician's office for an order. Dictated by: Jarod Jones M.D. The radiology attending physician has personally reviewed this study, and had reviewed and/or edited this written report and agrees with it. Electronically signed by: Maneula Velasquez MD Narrative 09/07/2023 10:46 AM CDT [...] has been scheduled to return to the [facility] for biopsy on 09/19/2023 at 8:30 [...] * Hepatitis C antibody (07/08/2022 2:05 PM MACHINE TOOL MECHANIC) Hep C Ab Nonreactive Nonreactive [facility] Comment:Antibodies to HCV no t detected. Does NOT exclude the possibility of recent exposure to HCV. Current interpretive data was last revised on 22 Blood 07/08/2022 2:05 PM MACHINE TOOL MECHANIC 07/08/2022 2:15 PM MACHINE TOOL MECHANIC us Tara French MD LAB MICROBIOLOGY - GEN ERAL ORDERABLES Final Result [facility] [place] [address] from Last 3 Months or Most Recently Relevant to Health Maintenance Insurance [employer] [facility] HMO [facility] Advance Directives For more information, please contact: [phone] * Full Code (Latest Code Status on File) Date Activated Date Inactivated Comments 11/02/2024 1:41 PM 11/02/2024 7:31 PM Care Teams Tuft Machine Operator Relationship Specialty Start Date End Date Tara French MD [address] [place] [address] PCP - General Internal Medicine 07/08/22
--- OUTSIDE RECORDS SUMMARY | 2025-01-19 04:41 | XMS_ITS | Referral Summary ---
Author Organization [facility] Physician Office [facility] [address] [place] [phone] Care Team Providers Care Pharmacy Clinical Specialist Name Role Phone Tara French MD Primary Care Provider Encounters Date Type Department Care Team Description 12/28/2024 Results Follow-Up [facility] Complete [facility] Medical Office Building 4, [address] [place] [address] Alie Gerardo MD Urinalysis reflex to microscopic and culture Urine, C4 complement, C3 complement, Additional followed-up results: 8 12/28/2024 1:45 PM CDT Ancillary Procedure [facility] [address] [place] [address] for Advanced Medicine 8th [place] [address] [place] [address] Left thigh pain 12/26/2024 Telephone [facility] Complete Care [address] [place] [address] Medical Office Building 4, [address] [place] [address] Patrica Whittaker RN 12/25/2024 5:36 PM CDT - 12/25/2024 11:59 PM CDT Hospital Encounter [facility] ([facility]) [address] [place] [phone] Left thigh pain Discharge Disposition: Discharge to home or self care 12/25/2024 5:13 PM CDT - 12/25/2024 11:59 PM CDT Hospital Encounter [facility] ([facility]) [address] [place] [phone] Left thigh pain Discharge Disposition: Discharge to home or self care 12/25/2024 6:30 PM CDT Lab [facility] ([facility]) [address] [place] [phone] Dysuria; Left thigh pain 12/25/2024 4:20 PM CDT Office Visit [facility] [address] [place] [address] [place] [address] Alie Gerardo MD Left thigh pain (Primary Dx); Dysuria; Osteopenia, unspecified location; Elevated antinuclear antibody (GENA) level 11/06/2024 Orders Only [facility] Gastroenterolog y [address] [place] [address] [place] [address] Vernon Irizarry MD Gastroesophageal reflux disease, unspecified whether esophagitis present (Primary Dx) 11/02/2024 Results Follow-Up [address] [phone] Tara French MD EGD, Colonoscopy, Surgical pathology 11/02/2024 2:11 PM CDT Anesthesia Event [facility] Digestive Disease [address] [address] Shasha Culver MD Ruamwijitphong, Witoon, YARELI 11/02/2024 2:30 PM CDT - 11/02/2024 3:30 PM CDT Surgery [facility] Digestive Disease [address] [address] Vernon Irizarry MD ESOPHAGOGASTRODUODENOSCOPY BIOPSY 11/02/2024 1:18 PM CDT - 11/02/2024 3:31 PM CDT Hospital Encounter [facility] Digestive Disease [address] [address] Vernon Irizarry MD Screen for colon cancer; Epigastric pain Discharge Disposition: Discharge to home or self care 10/30/2024 Telephone [facility] Specialty Services [address] [place] [address] Doreen Mena RN GI PROCEDURE 3 DAY PRE CALL 10/29/2024 Telephone [facility] Complete Care [address] [facility] Medical Office Building 4, [address] [place] [address] Missy Velez RN 10/26/2024 Telephone [facility] Specialty Services [address] [place] [address] Doreen Mena RN GI PROCEDURE 7 DAY PRE CALL from Last 3 Months Allergies Active Allergy [...] tolerance 07/04/2016 Overview (09/13/2024): pre Is seeing legal investigator dr brennan is on metformin currently . a1c in 5 range . Is seeing legal investigator dr brennan is on metformin currently . a1c in 5 range . Menopausal syndrome 07/04/2016 Sinusitis Nosebleed Immunizations Immunization Administration Dates Next Due Hep [...] than three times a week 07/08/2022 Attends [employer] Not on file 07/08 Active Member [...] staff should administer the PHQ-9) 0 07/08/2022 [facility] - Occupational Stress Questionnaire Answer Date Recorded [...] place to sleep or slept in a fpc (including now)? No 07/08/2022 Personal Safety Answer [...] Epigastric pain COLONOSCOPY Screening for colon cancer Medical Devices Implanted Type Area Engineering Manager Electronics Device Identifier Shelf Expiration Date Model / Serial / Lot Bard Peripheral Vascular Ultraclip Bard 17ga 10cm 2 Trigger Permanent Ultrasound [id number] - [id number] Implanted:Qty: 1 on 09/19/2023 by Madelyn Springer MD at [facility] Left: Breast Bard Peripheral Vascular [id number] / / Procedures Procedure Name Priority Date/Time [...] HEPATITIS C ANTIBODY Routine 07/08/2022 2:05 PM HOT BOX OPERATOR Fatty liver Health care maintenance from Last 3 Months or Most Recently Relevant to Health Maintenance Results * REFLEXIVE URINE CULTURE (01/07/2025 3:10 PM CDT) [facility]rine culture [facility] Comment:NO CULTURE INDICATED 01/07/2025 3:10 PM CDT 01/07/2025 3:10 PM CDT Alie Gerardo MD LAB MICROBIOLOGY - GEN ERAL ORDERABLES Final Result Performing Organization Address City/State/[facility] Co de Phone Number [facility] [address] [place] [address] * (ABNORMAL) Urinalysis reflex to microscopic and [...] ERAL ORDERABLES Final Result Performing Organization Address [facility]/ZIP Co de Phone Number [facility] [address] [place] [phone] * US VEIN DUPLEX LOWER EXTREMITY LEFT LIMITED, UNILATERAL (12/28/2024 2:14 PM CDT) Anatomical Region Laterality Modality Vascular Left Ultrasound 12/28/2024 1:59 PM CDT Narrative 12/28/2024 7:05 PM CDT [facility] of Medicine - Department of Vascular Surgery, Vascular Laboratory [address] [place] [address] Lower Extremity Venous Ultrasound Report Patient Name: CHARLIE WELCH : 1965 (59y 6m) Study Date: 12/28/2024 1:59:41 PM Gender: F Tech: AK Location: [facility] Provider: ALIE GERARDO Quality: Adequate Order Provider: [...] M79.652 Pain in left thigh. FINDINGS: Performing Qa Test Analyst: Magalis Roberson RDMS, T. Left: Venous Doppler [...] Procedure Note Luc Beasley MD - 12/28/2024 [facility] - Department of Vascular Surgery,Vascular Laboratory [address] [place] [address] Lower Extremity Venous Ultrasound Report Patient Name: CHARLIE WELCH : 1965 (59y 6m) Study Date: 12/28/2024 1:59:41 PM Gender: F Tech: MS Location: [facility] Ref Provider: ALIE GERARDO Quality: Adequate Order Provider: ALIE GERARDO PROCEDURES: Vascular Report: Venous Duplex imaging was performed in the left lower extremity. Thecommon femoral, femoral, popliteal, posterior tibial, peroneal veins were evaluated forpatency, spontaneity and phasicity with Doppler, compression and augmentationmaneuvers. Great saphenous vein proximal at the junction was evaluated with compressionmaneuvers. INDICATIONS: M79.652 Pain in left thigh. FINDINGS: Performing Qa Test Analyst: Magalis Roberson RDMS, RVT. Left: Venous Doppler [...] MD FACS 12/28/2024 7:04:54 PM CDT Alie Gerardo MD [facility] [place] PROCEDURES Rosaura l Result * XR [...] MD LAB BLOOD ORDERABLES F inal Result [facility] Department [place] [address] * (ABNORMAL) Urinalysis reflex to microscopic and culture Urine (12/25/2024 5:28 PM CDT) Color, ur Straw Yellow Clarity, ur Clear Clear [facility] Specific gravity, ur 1.033(H) 1.003 - 1.030 [facility] pH, urine 5.5 [facility] Comment: Interpretive Data U rine pH is affected by diet, medications, systemic acid-base disturbances, and renal tubular function. pH may affect urinary stone formation. For example, urine pH below 6.0 may help reduce the tendency for calcium phosphate stones and pH greater than 6.0 may reduce the tendency for uric acid stone formation. Source: [facility] Current Interpretive Data was last revised on 2017 Protein, ur ql Negative Negative [facility] Glucose, ur ql 4+(A) Negative [facility] Ketones, ur Negative Negative [facility] Bilirubin, ur Negative Negative [facility] Blood, ur 2+(A) Negative [facility] Urobilinogen, ur <2.0 <2.0 mg/dL [facility] Nitrite, ur Negative Negative [facility] Leukocyte esterase, ur 1+(A) Negative [facility] UA reflex comment Reflex to microscopic UA will be performed. [facility] Urine 12/25/2024 5:28 PM CDT 12/25/2024 5:51 PM CDT Alie Gerardo MD LAB MICROBIOLOGY - GEN ERAL ORDERABLES Final Result Performing Organization Address [facility] de Phone Number [facility] [place] [address] * (ABNORMAL) Urinalysis, microscopic only (12/25/2024 5:28 PM CDT) WBC, ur 0-5 0 - 5 /HPF RBC, ur 6-10(A) 0 - 2 /HPF [facility] Epithelial cells, squamous, ur 1-5 0 - 5 /HPF [facility] Bacteria, ur Trace(A) [facility] Mucous, ur Present(A) [facility] Culture Reflex Comment Reflex conditions for urine culture (WBC >10) not met. [facility] Urine 12/25/2024 5:28 PM CDT 12/25/2024 5:51 PM CDT us Alie Gerardo MD LAB URINE ORDERABLES F inal Result Performing Organization Address [facility] de Phone Number [facility] [place] [address] * Erythrocyte sedimentation rate (12/25/2024 5:28 PM CDT) Erythrocyte sedimentation rate 16 1 - 30 mm/hr Blood 12/25/2024 5:28 PM CDT 12/25/2024 5:51 PM CDT Alie Gerardo MD LAB BLOOD ORDERABLES F inal Result Performing Organization Address [facility] Co de Phone Number [facility] [place] [address] * C3 complement (12/25/2024 5:28 PM CDT) Pathologist [facility] Complement C3 153.0 90.0 - 180.0 mg/dL Blood 12/25/2024 5:28 PM CDT 12/25/2024 5:51 PM CDT us Alie Gerardo MD LAB BLOOD ORDERABLES F inal Result Performing Organization Address City/State/[facility] [place] [address] * CRP (acute phase) (12/25/2024 5:28 PM CDT) Pathologist [facility] CRP <0.5 <=10.0 mg/L Blood 12/25/2024 5:28 PM CDT 12/25/2024 5:51 PM CDT us Alie Gerardo MD LAB BLOOD ORDERABLES F inal Result Performing Organization Address City/[facility] [place] [address] * Creatine kinase (CK), total (12/25/2024 5:28 PM CDT) Pathologist [facility] CK 65 30 - 200 Units/L Blood 12/25/2024 5:28 PM CDT 12/25/2024 5:51 PM CDT us Alie Gerardo MD LAB BLOOD ORDERABLES F inal Result Performing Organization Address City/[facility] [place] [address] * Surgical pathology (11/02/2024 2:19 PM CDT) Tissue (Gastric/Stomach biopsy) 11/02/2024 2:19 PM CDT Tissue specimen (specimen) (Gastric/Stomach biopsy) 11/02/2024 2:20 PM CDT Narrative PATHOLOGY [facility] - 11/05/2024 4:49 PM CDT EPIC results best viewed via link to PDF [facility] [place] [address] Note to Patients: This report may contain [...] Gender: F : 1965 (Age: 59) Address: [address] [place] [address] Hospital #: [id number] Taken:11/02/2024 Received:11/02/2024 Reported: 11/05/2024 Patient Type: [facility] Service: Gastro Location: Physician(s): Rosie Faulkner M.D. Diagnosis: A. Stomach, antrum, biopsy: - Antral and gastric transitional mucosa with mild chronic inflammation. - No Helicobacter pylori is seen on H&E stained slides. B. Stomach, body, biopsy: - Oxyntic mucosa with mild chronic inflammation. - No Helicobacter pylori is seen on H&E stained slides. [facility]/11/05/2024 08:08 By this signature, I attest that [...] Surgical Pathology and Flow Cytometry Departments at [facility] as part of an ongoing quality control industrial engineer program and in compliance with federally mandated [...] Surgical Pathology and Flow Cytometry Departments of [facility]. It has not been cleared or approved by the U. S. Food and Drug Administration. IMAGES AND SCANNED DOCUMENTS, IF INCLUDED, ONLY VIEWABLE IN PDF VERSION OF REPORT Vernon Irizarry MD LAB PATHOLOGY ORDERABL ES Final Result PATHOLOGY [facility] 3rd Floor [place], [place] [phone] * POCT glucose (11/02/2024 2:02 PM CDT) Glucose, POC 81 70 - 199 mg/dL Blood 11/02/2024 2:02 PM CDT 11/02/2024 2:02 PM CDT us Vernon Irizarry MD LAB POCT ORDERABLES - DEVICE Final Result [facility] Department [place] [address] * EGD (11/02/2024 1:32 PM CDT) Anatomical Region Laterality Modality Other Narrative Procedure Note Vernon Irizarry MD - 11/02/2024 1:32 PM CDT GI ENDOSCOPY [facility] Patient Name: Charlie Welch Procedure Date: 11/02/2024 1:32 PM Date of : 1965 Admit Type: Outpatient Age: 59 Gender: Female Attending MD: Vernon Irizarry M.D. Room: [facility] ENDOSCOPY ROOM 8 Note Status: Finalized Procedure: [...] passed under direct vision. The [id number] endoscope was introduced through the mouth, and [...] Age: 59 Gender: Female Attending MD: Vernon Irizrary M.D. Room: [facility] ENDOSCOPY ROOM 8 Note Status: Finalized Procedure: [...] was passed under direct vision. The [id number] endoscope was introduced through the anus and advanced to thececum, identified by appendiceal orifice and ileocecalvalve. The colonoscopy was performed without difficulty.The patient tolerated the procedure well. The qualityof the bowel preparation was adequate. The quality ofthe bowel preparation was evaluated using the BBPS([place] Bowel Preparation Scale) with scores of: RightColon [...] has been scheduled to return to the [facility] for biopsy on 09/19/2023 at 8:30 [...] has been scheduled to return to the [facility] for biopsy on 09/19/2023 at 8:30 [...] * Hepatitis C antibody (07/08/2022 2:05 PM HOT BOX OPERATOR) Hep C Ab Nonreactive Nonreactive [facility] Comment:Antibodies to HCV no t detected. Does NOT exclude the possibility of recent exposure to HCV. Current interpretive data was last revised on 22 Blood 07/08/2022 2:05 PM HOT BOX OPERATOR 07/08/2022 2:15 PM HOT BOX OPERATOR us Tara French MD LAB MICROBIOLOGY - GEN ERAL ORDERABLES Final Result [facility] Department [place] [address] from Last 3 Months or Most Recently Relevant to Health Maintenance Insurance The [employer] travel OS [facility] HMO [facility] O Advance Directives For more information, please contact: [phone] * Full Code (Latest Code Status on File) Date Activated Date Inactivated Comments 11/02/2024 1:41 PM 11/02/2024 7:31 PM Care Teams Pharmacy Clinical Specialist Relationship Specialty Start Date End Date Tara French MD [address] [place] [address] PCP - General Internal Medicine 07/08/22
--- NOTE | 2025-01-19 04:43 | ECG_ITS ---
Test Date: 2025-01-19 04:47:49 Measurements Intervals Hiller Rate: 79 P: 54 MS: 177 QRS: 9 QRSD: 76 T: 50 QT: 349 QTc: 402 Interpretive Statements SINUS RHYTHM BASELINE ARTIFACT- I, III, AVR, AVL NORMAL ECG Compared to ECG 02/20/2024 01:38:47 NO SIGNIFICANT CHANGE Electronically Signed On 01-19-2025 07:43:21 CDT by Frankie Morgan D.O.
[2025-01-19 05:02] LABS: Hematocrit 41.3 % (37.0-47.0); Hemoglobin 13.5 g/dL (12.0-15.0); Immature Granulocyte Percent A 0.0 % (0-0.5); Lymphocytes Absolute Auto 3.04 K/mm3 (0.9-3.2); Mean Corpuscular HGB Conc 32.7 g/dl (32-36); Mean Corpuscular Hemoglobin 30.4 pg (26-34); Mean Corpuscular Volume 93.0 fl (80-100); Nucleated Red Blood Cells Absolute Auto 0.000 K/mm3 (0.0-0.012); Nucleated Red Blood Cells Perc 0.0 % (0.0-0.2); Platelet Count Result 255 k/mm3 (150-375); Red Blood Count 4.44 M/mm3 (4.2-5.4); White Blood Count 4.8 K/mm3 (4.5-10.0)
--- OUTSIDE RECORDS SUMMARY | 2025-01-19 05:21 | XMS_ITS | Clinical Summary ---
Author Organization [facility] Physician Office Building [address] [place] [phone] Care Team Providers Care Account Manager Trainee Name Role Phone Tara French MD Primary [...] tolerance 07/04/2016 Overview (09/13/2024): pre Is seeing scheme technician dr brennan is on metformin currently . a1c in 5 range . Is seeing scheme technician dr brennan is on metformin currently . a1c in 5 range . Menopausal syndrome 07/04/2016 Sinusitis Nosebleed Encounters Date Type Department Care Team Description 12/28/2024 1:45 PM CDT Ancillary Procedure [facility] [address] [place] [address] for Advanced Medicine 8th [place] [address] [place] [address] Left thigh pain 12/28/2024 Results Follow-Up [facility] Complete [address] Office Building [address], [address] [place] [phone] Alie Gerardo MD Urinalysis reflex to microscopic and culture Urine, C4 complement, C3 complement, Additional followed-up results: 8 12/26/2024 Telephone [facility] Complete [address] Office Building [address], [address] [place] [phone] Patrica Whittaker RN 12/25/2024 6:30 PM CDT Lab [facility] ([facility]) [address] [place] [phone] Dysuria; Left thigh pain 12/25/2024 5:36 PM CDT - 12/25/2024 11:59 PM CDT Hospital Encounter [facility] ([facility]) [address] [place] [phone] Left thigh pain Discharge Disposition: Discharge to home or self care 12/25/2024 5:13 PM CDT - 12/25/2024 11:59 PM CDT Hospital Encounter [facility] ([facility]) [address] [place] [address] Left thigh pain Discharge Disposition: Discharge to home or self care 12/25/2024 4:20 PM CDT Office Visit [facility] [address] [place] [address] Advanced Medicine 12th Floor [address] [place] [phone] Alie Gerardo MD Left thigh pain (Primary Dx); Dysuria; Osteopenia, unspecified location; Elevated antinuclear antibody (GENA) level 11/06/2024 Orders Only [facility] Gastroenterolog y [address] [facility] 12th [place] [address] [place] [address] Vernon Irizarry MD Gastroesophageal reflux disease, unspecified whether esophagitis present (Primary Dx) 11/02/2024 2:30 PM CDT - 11/02/2024 3:30 PM CDT Surgery [address] [address] Vernon Irizarry MD ESOPHAGOGASTRODUODENOSCOPY BIOPSY 11/02/2024 2:11 PM CDT Anesthesia Event [address] [address] Shasha Culver MD Ruamwijitphong, Witoon, CRNA 11/02/2024 1:18 PM CDT - 11/02/2024 3:31 PM CDT Hospital Encounter [address] [address] Vernon Irizarry MD Screen for colon cancer; Epigastric pain Discharge Disposition: Discharge to home or self care 11/02/2024 Results Follow-Up [facility] [address] [place] [address] [place] [address] Tara Frenhc MD EGD, Colonoscopy, Surgical pathology 10/30/2024 Telephone [facility] Specialty Services [address] [place] [phone] Doreen Mena RN GI PROCEDURE 3 DAY PRE CALL 10/29/2024 Telephone [facility] Complete Care [address] [place] [address] Medical Office Building 4, [address] [place] [address] Missy Velez RN 10/26/2024 Telephone [facility] Specialty Services [facility] [place] [address] Doreen Mena RN GI PROCEDURE 7 DAY [...] staff should administer the PHQ-9) 0 07/08/2022 [facility] - Occupational Stress [...] place to sleep or slept in a long-term (including now)? No 07/08/2022 Personal Safety Answer [...] 08/10/2022, 023 Medical Devices Implanted Type Area Well Head Pumper Device Identifier Shelf Expiration Date Model / Serial / Lot Bard Peripheral Vascular Ultraclip Bard 17ga 10cm 2 Trigger Permanent Ultrasound [id number] - [id number] Implanted:Qty: 1 on 09/19/2023 by Madelyn Springer MD at [facility] Left: Breast Bard Peripheral Vascular [id number] / / Procedures Procedure Name Priority Date/Time [...] HEPATITIS C ANTIBODY Routine 07/08/2022 2:05 PM TELEPHONE CLEANER Fatty liver Health care maintenance from Last 3 Months or Most Recently Relevant to Health Maintenance Results * REFLEXIVE URINE CULTURE (01/07/2025 3:10 PM CDT) Urine culture [facility] Comment:NO CULTURE INDICATED 01/07/2025 3:10 PM CDT 01/07/2025 3:10 PM CDT Alie Gerardo MD LAB MICROBIOLOGY - GEN ERAL ORDERABLES Final Result Performing Organization Address [facility]/ZIP Co de Phone Number [facility] [address] Administration NISHA Shane [phone] * (ABNORMAL) Urinalysis reflex to microscopic and [...] ERAL ORDERABLES Final Result Performing Organization Address [facility] Co de Phone Number [facility] [address] Administration NISHA Shane [phone] * US VEIN DUPLEX LOWER EXTREMITY LEFT LIMITED, UNILATERAL (12/28/2024 2:14 PM CDT) Anatomical Region Laterality Modality Vascular Left Ultrasound 12/28/2024 1:59 PM CDT Narrative 12/28/2024 7:05 PM CDT [facility] - Department of Vascular Surgery, Vascular Laboratory [address] [place] [address] Lower Extremity Venous Ultrasound Report Patient Name: CHARLIE WELCH : 1965 (59y 6m) Study Date: 12/28/2024 1:59:41 PM Gender: F Tech: MS Location: [facility] Provider: ALIE GERARDO Quality: Adequate Order Provider: [...] M79.652 Pain in left thigh. FINDINGS: Performing Transcription Coordinator: Magalis Roberson RDMS, T. Left: Venous Doppler [...] Procedure Note Luc Beasley MD - 12/28/2024 [facility] - Department of Vascular Surgery,Vascular Laboratory [address] [place] [address] Lower Extremity Venous Ultrasound Report Patient Name: CHARLIE WELCH : 1965 (59y 6m) Study Date: 12/28/2024 1:59:41 PM Gender: F Tech: PA Location: [facility] Provider: ALIE GERARDO Quality: Adequate Order Provider: ALIE GERARDO PROCEDURES: Vascular Report: Venous Duplex imaging was performed in the left lower extremity. Thecommon femoral, femoral, popliteal, posterior tibial, peroneal veins were evaluated forpatency, spontaneity and phasicity with Doppler, compression and augmentationmaneuvers. Great saphenous vein proximal at the junction was evaluated with compressionmaneuvers. INDICATIONS: M79.652 Pain in left thigh. FINDINGS: Performing Transcription Coordinator: Magalis Roberson RDMS, RVT. Left: Venous Doppler [...] 12/28/2024 7:04:54 PM CDT Alie Gerardo MD IM US PROCEDURES Rosaura l Result [...] MD LAB BLOOD ORDERABLES F inal Result [facility] [place] [address] * (ABNORMAL) Urinalysis reflex to microscopic and culture Urine (12/25/2024 5:28 PM CDT) Color, ur Straw Yellow Clarity, ur Clear Clear [facility] Specific gravity, ur 1.033(H) 1.003 - 1.030 [facility] pH, urine 5.5 [facility] Comment: Interpretive Data U rine pH is affected by diet, medications, systemic acid-base disturbances, and renal tubular function. pH may affect urinary stone formation. For example, urine pH below 6.0 may help reduce the tendency for calcium phosphate stones and pH greater than 6.0 may reduce the tendency for uric acid stone formation. Source: [place] [facility] Current Interpretive Data was last revised on 2017 Protein, ur ql Negative Negative [facility] Glucose, ur ql 4+(A) Negative [facility] Ketones, ur Negative Negative [facility] Bilirubin, ur Negative Negative [facility] Blood, ur 2+(A) Negative [facility] Urobilinogen, ur <2.0 <2.0 mg/dL [facility] Nitrite, ur Negative Negative [facility] Leukocyte esterase, ur 1+(A) Negative [facility] UA reflex comment Reflex to microscopic UA will be performed. [facility] Urine 12/25/2024 5:28 PM CDT 12/25/2024 5:51 PM CDT Alie Gerardo MD LAB MICROBIOLOGY - GEN ERAL ORDERABLES Final Result Performing Organization Address [facility] de Phone Number [facility] [address] * (ABNORMAL) Urinalysis, microscopic only (12/25/2024 5:28 PM CDT) WBC, ur 0-5 0 - 5 /HPF RBC, ur 6-10(A) 0 - 2 /HPF [facility] Epithelial cells, squamous, ur 1-5 0 - 5 /HPF [facility] Bacteria, ur Trace(A) [facility] Mucous, ur Present(A) [facility] Culture Reflex Comment Reflex conditions for urine culture (WBC >10) not met. [facility] Urine 12/25/2024 5:28 PM CDT 12/25/2024 5:51 PM CDT us Alie Gerardo MD LAB URINE ORDERABLES F inal Result Performing Organization Address [facility] Co de Phone Number [facility] [place] [address] * Erythrocyte sedimentation rate (12/25/2024 5:28 PM CDT) Erythrocyte sedimentation rate 16 1 - 30 mm/hr Blood 12/25/2024 5:28 PM CDT 12/25/2024 5:51 PM CDT Alie Gerardo MD LAB BLOOD ORDERABLES F inal Result Performing Organization Address [facility] Co de Phone Number [facility] [place] [address] * C3 complement (12/25/2024 5:28 PM CDT) Complement C3 153.0 90.0 - 180.0 mg/dL Blood 12/25/2024 5:28 PM CDT 12/25/2024 5:51 PM CDT us Alie Gerardo MD LAB BLOOD [place] [address] * CRP (acute phase) (12/25/2024 5:28 PM CDT) CRP <0.5 <=10.0 mg/L Blood 12/25/2024 5:28 PM CDT 12/25/2024 5:51 PM CDT us Alie Gerardo MD LAB BLOOD ORDERABLES F inal Result Performing Organization Address [facility] [place] [address] * Creatine kinase (CK), total (12/25/2024 5:28 PM CDT) CK 65 30 - 200 Units/L Blood 12/25/2024 5:28 PM CDT 12/25/2024 5:51 PM CDT Alie Gerardo MD LAB BLOOD ORDERABLES F inal Result Performing Organization Address [facility] [place] [address] * Surgical pathology (11/02/2024 2:19 PM CDT) Tissue (Gastric/Stomach biopsy) 11/02/2024 2:19 PM CDT Tissue specimen (specimen) (Gastric/Stomach biopsy) 11/02/2024 2:20 PM CDT Narrative PATHOLOGY [facility] - 11/05/2024 4:49 PM CDT EPIC results best viewed via link to PDF [facility] [place] [address] Note to Patients: This report may contain [...] Gender: F : 1965 (Age: 59) Address: [address] [place] [address] Hospital #: [id number] Taken:11/02/2024 Received:11/02/2024 Reported: 11/05/2024 Patient Type: [facility] Service: Gastro Location: Physician(s): Rosie Faulkner M.D. Diagnosis: A. Stomach, antrum, biopsy: - Antral and gastric transitional mucosa with mild chronic inflammation. - No Helicobacter pylori is seen on H&E stained slides. B. Stomach, body, biopsy: - Oxyntic mucosa with mild chronic inflammation. - No Helicobacter pylori is seen on H&E stained slides. [facility]/11/05/2024 08:08 By this signature, I attest that the above diagnosis is based upon my personal examination of the slides(and/or other material indicated in the diagnosis). Albertnia Naidu MD, PHD Report Electronically Reviewed and [...] Surgical Pathology and Flow Cytometry Departments at [facility] as part of an ongoing quality control assessor program and in compliance with federally mandated [...] Surgical Pathology and Flow Cytometry Departments of [facility]. It has not been cleared or approved by the U. S. Food and Drug Administration. IMAGES AND SCANNED DOCUMENTS, IF INCLUDED, ONLY VIEWABLE IN PDF VERSION OF REPORT Vernon Irizarry MD LAB PATHOLOGY ORDERABL ES Final Result PATHOLOGY [facility] 3rd Floor [place], [place] [phone] * POCT glucose (11/02/2024 2:02 PM CDT) Glucose, POC 81 70 - 199 mg/dL Blood 11/02/2024 2:02 PM CDT 11/02/2024 2:02 PM CDT us Vernon Irizarry MD LAB POCT ORDERABLES - DEVICE Final Result [facility] [place] [address] * EGD (11/02/2024 1:32 PM CDT) Anatomical Region Laterality Modality Other Narrative Procedure Note Vernon Irizarry MD - 11/02/2024 1:32 PM CDT GI ENDOSCOPY [facility] Patient Name: Charlie Welch Procedure Date: 11/02/2024 1:32 PM Date of : 1965 Admit Type: Outpatient Age: 59 Gender: Female Attending MD: Vernon Irizarry M.D. Room: [facility] ENDOSCOPY ROOM 8 Note Status: Finalized [...] passed under direct vision. The [id number] endoscope was introduced through the mouth, and [...] Female Attending MD: Vernon Irizarry M.D. Room: [facility] ENDOSCOPY ROOM 8 Note Status: Finalized [...] was passed under direct vision. The [id number] endoscope was introduced through the anus and advanced to thececum, identified by appendiceal orifice and ileocecalvalve. The colonoscopy was performed without difficulty.The patient tolerated the procedure well. The qualityof the bowel preparation was adequate. The quality ofthe bowel preparation was evaluated using the BBPS([place] Bowel Preparation Scale) with scores of: RightColon [...] has been scheduled to return to the [facility] for biopsy on 09/19/2023 at 8:30 AM. [...] has been scheduled to return to the [facility] for biopsy on 09/19/2023 at 8:30 AM. [...] * Hepatitis C antibody (07/08/2022 2:05 PM TELEPHONE CLEANER) Hep C Ab Nonreactive Nonreactive [facility] Comment:Antibodies to HCV no t detected. Does NOT exclude the possibility of recent exposure to HCV. Current interpretive data was last revised on 22 Blood 07/08/2022 2:05 PM TELEPHONE CLEANER 07/08/2022 2:15 PM TELEPHONE CLEANER us Tara French MD LAB MICROBIOLOGY - GEN ERAL ORDERABLES Final Result [facility] Department [place] [address] from Last 3 Months or Most Recently Relevant to Health Maintenance Insurance [employer] [facility] HMO [facility] Advance Directives For more information, please contact: [phone] * Full Code (Latest Code Status on File) Date Activated Date Inactivated Comments 11/02/2024 1:41 PM 11/02/2024 7:31 PM Care Teams Account Manager Trainee Relationship Specialty Start Date End Date Tara French MD [address] [place] [address] PCP - General Internal Medicine 07/08/22
--- OUTSIDE RECORDS SUMMARY | 2025-01-19 05:21 | XMS_ITS | Referral Summary ---
Author Organization [facility] Physician Office Building [address] [place] [phone] Care Team Providers Care Carbide Tool Die Maker Name Role Phone Tara French MD Primary Care Provider Encounters Date Type Department Care Team Description 12/28/2024 Results Follow-Up [facility] Medical Office Building 4, [address] [place] [address] Alie Gerardo MD Urinalysis reflex to microscopic and culture Urine, C4 complement, C3 complement, Additional followed-up results: 8 12/28/2024 1:45 PM CDT Ancillary Procedure [facility] [address] [place] [address] for Advanced Medicine 8th [place] [address] [place] [address] Left thigh pain 12/26/2024 Telephone [facility] [address] [place] [address] Medical Office Building 4, [address] [place] [address] Patrica Whittaker RN 12/25/2024 5:36 PM CDT - 12/25/2024 11:59 PM CDT Hospital Encounter [facility] ([facility]) [address] [place] [phone] Left thigh pain Discharge Disposition: Discharge to home or self care 12/25/2024 5:13 PM CDT - 12/25/2024 11:59 PM CDT Hospital Encounter [facility] ([facility]) [address] [place] [phone] Left thigh pain Discharge Disposition: Discharge to home or self care 12/25/2024 6:30 PM CDT Lab [facility] ([facility]) [address] [place] [phone] Dysuria; Left thigh pain 12/25/2024 4:20 PM CDT Office Visit [facility] [address] [place] [address] [place] [address] Alie Gerardo MD Left thigh pain (Primary Dx); Dysuria; Osteopenia, unspecified location; Elevated antinuclear antibody (GENA) level 11/06/2024 Orders Only [facility] [address] [place] [address] [place] [address] Vernon Irizarry MD Gastroesophageal reflux disease, unspecified whether esophagitis present (Primary Dx) 11/02/2024 Results Follow-Up [address] [address] Tara French MD EGD, Colonoscopy, Surgical pathology 11/02/2024 2:11 PM CDT Anesthesia Event [facility] [address] [address] Shasha Culver MD Ruamwijitphong, Witoon, YARELI 11/02/2024 2:30 PM CDT - 11/02/2024 3:30 PM CDT Surgery [facility] [address] [address] Vernon Irizarry MD ESOPHAGOGASTRODUODENOSCOPY BIOPSY 11/02/2024 1:18 PM CDT - 11/02/2024 3:31 PM CDT Hospital Encounter [facility] [address] [address] Vernon Irizarry MD Screen for colon cancer; Epigastric pain Discharge Disposition: Discharge to home or self care 10/30/2024 Telephone [facility] [address] [place] [address] Doreen Mena RN GI PROCEDURE 3 DAY PRE CALL 10/29/2024 Telephone [facility] [address] [facility] Medical Office Building 4, [address] [place] [address] Missy Velez RN 10/26/2024 Telephone [facility] [address] [place] [address] Doreen Mena RN GI PROCEDURE 7 DAY [...] tolerance 07/04/2016 Overview (09/13/2024): pre Is seeing web development manager dr brennan is on metformin currently . a1c in 5 range . Is seeing web development manager dr brennan is on metformin currently . [...] than three times a week 07/08/2022 Attends [employer] Not on file 07/08 Active Member [...] staff should administer the PHQ-9) 0 07/08/2022 [facility] - Occupational Stress Questionnaire Answer Date [...] place to sleep or slept in a mcfp (including now)? 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 Fatty liver Health care maintenance from Last 3 Months or Most Recently Relevant to Health Maintenance Results * REFLEXIVE URINE CULTURE (01/07/2025 3:10 PM CDT) [facility] Comment:NO CULTURE INDICATED 01/07/2025 3:10 PM CDT 01/07/2025 3:10 PM CDT Alie Gerardo MD LAB MICROBIOLOGY - GEN ERAL ORDERABLES Final Result Performing Organization Address City/State/[facility] Co de Phone Number [facility] [address] [place] [address] * (ABNORMAL) Urinalysis reflex to microscopic and [...] esterase, ur NEGATIVE NEGATIVE [facility] WBC, ur NONE SEEN < OR = [...] ERAL ORDERABLES Final Result Performing Organization Address [facility]/ZIP Co de Phone Number [facility] [address] [place] [address] * US VEIN DUPLEX LOWER EXTREMITY LEFT LIMITED, UNILATERAL (12/28/2024 2:14 PM CDT) Anatomical Region Laterality Modality Vascular Left Ultrasound 12/28/2024 1:59 PM CDT Narrative 12/28/2024 7:05 PM CDT [facility] - Department of Vascular Surgery, Vascular Laboratory [address] [place] [address] Lower Extremity Venous Ultrasound Report Patient Name: CHARLIE WELCH : 1965 (59y 6m) Study Date: 12/28/2024 1:59:41 PM Gender: F Tech: RI Location: [facility] Provider: ALIE GERARDO Quality: Adequate Order [...] M79.652 Pain in left thigh. FINDINGS: Performing Adobe Ball Mixer: Magalis Roberson RDMS, T. Left: Venous Doppler [...] Procedure Note Luc Beasley MD - 12/28/2024 [facility] - Department of Vascular Surgery,Vascular Laboratory [address] [place] [address] Lower Extremity Venous Ultrasound Report Patient Name: CHARLIE WELCH : 1965 (59y 6m) Study Date: 12/28/2024 1:59:41 PM Gender: F Tech: MS Location: [facility] Ref Provider: ALIE GERARDO Quality: Adequate Order Provider: ALIE GERARDO PROCEDURES: Vascular Report: Venous Duplex imaging was performed in the left lower extremity. Thecommon femoral, femoral, popliteal, posterior tibial, peroneal veins were evaluated forpatency, spontaneity and phasicity with Doppler, compression and augmentationmaneuvers. Great saphenous vein proximal at the junction was evaluated with compressionmaneuvers. INDICATIONS: M79.652 Pain in left thigh. FINDINGS: Performing Adobe Ball Mixer: Magalis Roberson RDMS, RVT. Left: Venous Doppler [...] 12/28/2024 7:04:54 PM CDT Alie Gerardo MD [facility] US PROCEDURES Rosaura l Result * XR [...] MD LAB BLOOD ORDERABLES F inal Result [facility] Department [place] [address] * (ABNORMAL) Urinalysis reflex to microscopic and culture Urine (12/25/2024 5:28 PM CDT) Color, ur Straw Yellow Clarity, ur Clear Clear [facility] Specific gravity, ur 1.033(H) 1.003 - 1.030 [facility] pH, urine 5.5 [facility] Comment: Interpretive Data U rine pH is affected by diet, medications, systemic acid-base disturbances, and renal tubular function. pH may affect urinary stone formation. For example, urine pH below 6.0 may help reduce the tendency for calcium phosphate stones and pH greater than 6.0 may reduce the tendency for uric acid stone formation. Source: [facility] [employer] Current Interpretive Data was last revised on 2017 Protein, ur ql Negative Negative [facility] Glucose, ur ql 4+(A) Negative [facility] Ketones, ur Negative Negative [facility] Bilirubin, ur Negative Negative [facility] Blood, ur 2+(A) Negative [facility] Urobilinogen, ur <2.0 <2.0 mg/dL [facility] Nitrite, ur Negative Negative [facility] Leukocyte esterase, ur 1+(A) Negative [facility] UA reflex comment Reflex to microscopic UA will be performed. [facility] Urine 12/25/2024 5:28 PM CDT 12/25/2024 5:51 PM CDT Alie Gerardo MD LAB MICROBIOLOGY - GEN ERAL ORDERABLES Final Result Performing Organization Address [facility] de Phone Number [facility] [employer] [place] [address] * (ABNORMAL) Urinalysis, microscopic only (12/25/2024 5:28 PM CDT) WBC, ur 0-5 0 - 5 /HPF RBC, ur 6-10(A) 0 - 2 /HPF [facility] Epithelial cells, squamous, ur 1-5 0 - 5 /HPF [facility] Bacteria, ur Trace(A) [facility] Mucous, ur Present(A) [facility] Culture Reflex Comment Reflex conditions for urine culture (WBC >10) not met. [facility] Urine 12/25/2024 5:28 PM CDT 12/25/2024 5:51 PM CDT us Alie Gerardo MD LAB URINE ORDERABLES F inal Result Performing Organization Address [facility] de Phone Number [facility] [employer] [place] [address] * Erythrocyte sedimentation rate (12/25/2024 5:28 PM CDT) Erythrocyte sedimentation rate 16 1 - 30 mm/hr Blood 12/25/2024 5:28 PM CDT 12/25/2024 5:51 PM CDT Alie Gerardo MD LAB BLOOD ORDERABLES F inal Result Performing Organization Address [facility] Co de Phone Number [facility] [employer] [place] [address] * C3 complement (12/25/2024 5:28 PM CDT) Pathologist [facility] Complement C3 153.0 90.0 - 180.0 mg/dL Blood 12/25/2024 5:28 PM CDT 12/25/2024 5:51 PM CDT us Alie Gerardo MD LAB BLOOD ORDERABLES F inal Result Performing Organization Address City/State/[facility] [place] [address] * CRP (acute phase) (12/25/2024 5:28 PM CDT) Pathologist [facility] CRP <0.5 <=10.0 mg/L Blood 12/25/2024 5:28 PM CDT 12/25/2024 5:51 PM CDT us Alie Gerardo MD LAB BLOOD ORDERABLES F inal Result Performing Organization Address City/[facility] [place] [address] * Creatine kinase (CK), total (12/25/2024 5:28 PM CDT) Pathologist [facility] CK 65 30 - 200 Units/L Blood 12/25/2024 5:28 PM CDT 12/25/2024 5:51 PM CDT us Alie Gerardo MD LAB BLOOD ORDERABLES F inal Result Performing Organization Address City/[facility] [place] [address] * Surgical pathology (11/02/2024 2:19 PM CDT) Tissue (Gastric/Stomach biopsy) 11/02/2024 2:19 PM CDT Tissue specimen (specimen) (Gastric/Stomach biopsy) 11/02/2024 2:20 PM CDT Narrative PATHOLOGY [facility] - 11/05/2024 4:49 PM CDT EPIC results best viewed via link to PDF [facility] [place] [address] Note to Patients: This report may contain [...] Gender: F : 1965 (Age: 59) Address: [address] [place] [address] Hospital #: [id number] Taken:11/02/2024 Received:11/02/2024 Reported: 11/05/2024 Patient Type: [facility] Service: Gastro Location: Physician(s): Rosie Faulkner M.D. Diagnosis: A. Stomach, antrum, biopsy: - Antral and gastric transitional mucosa with mild chronic inflammation. - No Helicobacter pylori is seen on H&E stained slides. B. Stomach, body, biopsy: - Oxyntic mucosa with mild chronic inflammation. - No Helicobacter pylori is seen on H&E stained slides. [facility]/11/05/2024 08:08 By this signature, I attest [...] Surgical Pathology and Flow Cytometry Departments at [facility] as part of an ongoing manager quality systems program and in compliance with federally mandated [...] Surgical Pathology and Flow Cytometry Departments of [facility]. It has not been cleared or approved by the U. S. Food and Drug Administration. IMAGES AND SCANNED DOCUMENTS, IF INCLUDED, ONLY VIEWABLE IN PDF VERSION OF REPORT Vernon Irizarry MD LAB PATHOLOGY ORDERABL ES Final Result PATHOLOGY [facility] 3rd Floor [place], [place] [phone] * POCT glucose (11/02/2024 2:02 PM CDT) Glucose, POC 81 70 - 199 mg/dL Blood 11/02/2024 2:02 PM CDT 11/02/2024 2:02 PM CDT us Vernon Irizarry MD LAB POCT ORDERABLES - DEVICE Final Result [facility] Department [place] [address] * EGD (11/02/2024 1:32 PM CDT) Anatomical Region Laterality Modality Other Narrative Procedure Note Vernon Irizarry MD - 11/02/2024 1:32 PM CDT GI ENDOSCOPY [facility] Patient Name: Charlie Welch Procedure Date: 11/02/2024 1:32 PM Date of : 1965 Admit Type: Outpatient Age: 59 Gender: Female Attending MD: Vernon Irizarry M.D. Room: [facility] ENDOSCOPY ROOM 8 Note Status: Finalized Procedure: [...] passed under direct vision. The [id number] endoscope was introduced through the mouth, and [...] Female Attending MD: Vernon Irizarry M.D. Room: [facility] ENDOSCOPY ROOM 8 Note Status: Finalized Procedure: [...] was passed under direct vision. The [id number] endoscope was introduced through the anus and advanced to thececum, identified by appendiceal orifice and ileocecalvalve. The colonoscopy was performed without difficulty.The patient tolerated the procedure well. The qualityof the bowel preparation was adequate. The quality ofthe bowel preparation was evaluated using the BBPS([place] Bowel Preparation Scale) with scores of: RightColon [...] has been scheduled to return to the [facility] for biopsy on 09/19/2023 at 8:30 AM. [...] has been scheduled to return to the [facility] for biopsy on 09/19/2023 at 8:30 AM. [...] * Hepatitis C antibody (07/08/2022 2:05 PM SERVICE NOW DEVELOPER) Hep C Ab Nonreactive Nonreactive [facility] Comment:Antibodies to HCV no t detected. Does NOT exclude the possibility of recent exposure to HCV. Current interpretive data was last revised on 22 Blood 07/08/2022 2:05 PM SERVICE NOW DEVELOPER 07/08/2022 2:15 PM SERVICE NOW DEVELOPER us Tara French MD LAB MICROBIOLOGY - GEN ERAL ORDERABLES Final Result [facility] [place] [address] from Last 3 Months or Most Recently Relevant to Health Maintenance Insurance [employer] [facility] HMO [facility] O Advance Directives For more information, please contact: [phone] * Full Code (Latest Code Status on File) Date Activated Date Inactivated Comments 11/02/2024 1:41 PM 11/02/2024 7:31 PM Care Teams Carbide Tool Die Maker Relationship Specialty Start Date End Date Tara French MD [address] [place] [address] PCP - General Internal Medicine 07/08/22
[2025-01-19 05:26] LABS: Alanine Aminotransferase 11 U/L (6-35); Albumin Level 4.3 g/dL (3.5-5.1); Alkaline Phosphatase 67 U/L (38-126); Anion Gap 8 mmol/L (4-12); Aspartate Amino Transferase 28 U/L (14-36); Bilirubin,Total 0.6 mg/dL (0.2-1.3); Blood Urea Nitrogen 23 mg/dL (7-17); Calcium 9.7 mg/dL (8.4-10.2); Carbon Dioxide 27 mmol/L (22-30); Chloride 107 mmol/L (98-107); Estimated CRCL calculation 41 ml/min; Estimated Glomerular Filt Rate 59; Glucose 104 mg/dL (65-110); Lipase 340 U/L (23-300); Potassium 3.6 mmol/L (3.4-5.0); Sodium 142 mmol/L (137-145); Total Protein 8.1 g/dL (6.3-8.2)
[2025-01-19 05:37] LABS: NT Pro B Type Natriuretic Pept 27 pg/mL (19.9-100)
[2025-01-19 05:40] LABS: Troponin I < 0.012 ng/mL (0.000-0.034)
--- NOTE | 2025-01-19 05:57 | ED.CHESTPAIN ---
HPI - Chest Pain General Chief Complaint: Chest Pain <Mahi Bee MD - Last Filed: 01/19/25 07:01> Stated Complaint: sob, cp <Mahi Bee MD - Last Filed: 01/19/25 07:01> Time Seen by Provider: 01/19/25 04:43 <Mahi Bee MD - Last Filed: 01/19/25 07:01> History of Present Illness HPI narrative: Patient presents here with chest pain that started this morning, woke up out of sleep, she has had similar symptoms in the past but this is the worst, she was recent diagnosed with lupus 1 year ago. Associated shortness of breath. No nausea, no radiation of pain. No focal numbness or weakness. <Mahi Bee MD - Last Filed: 01/19/25 07:01> Related Data Home Medications: Home Medications ?Medication ?Instructions ?Recorded ?Confirmed ?Last Taken ?Type hydroxychloroquine 200 mg tablet mg PO 08/04/24 08/03/24 History progesterone micronized 200 mg mg 08/04/24 08/03/24 History capsule <Mahi Bee MD - Last Filed: 01/19/25 07:01> Allergies/Adverse Reactions: Allergies Allergy/AdvReac Type Severity Reaction Status Date / Time latex AdvReac Mild Rash Verified 01/19/25 04:53 <Mahi Bee MD - Last Filed: 01/19/25 07:01> Review of Systems Review of Systems: All systems reviewed & are unremarkable except as noted in HPI and below <Mahi Bee MD - Last Filed: 01/19/25 07:01> [facility] [place] Past Medical History Medical History: Medical History Fatty liver Prediabetes diet controlled <Mahi Bee MD - Last Filed: 01/19/25 07:01> Family History Family History: Family History Sibling Pulmonary embolism Sibling Pulmonary embolism Father Hypertension <Mahi Bee MD - Last Filed: 01/19/25 07:01> Social History Social History: Social History Smoking status: Former smoker Additional smoking assessment comments: light, occasionally while in her 20s <Mahi Bee MD - Last Filed: 01/19/25 07:01> Exam Narrative: EXAMINATION OF ORGAN SYSTEMS/BODY AREAS: Constitutional: Vital signs per nursing GENERAL: Appears slightly anxious and uncomfortable, breathing deeply HEAD: Normal with no signs of head trauma. EYES: EOMI, conjunctiva normal ENT: Hearing grossly intact LUNGS: Nonlabored breathing. HEART: [Regular rate and rhythm], normal and equal bilateral radial and DP pulses ABD: [Soft], [nontender to palpation] EXT: Normal range of motion SKIN: [No rashes or lesions.] NEURO: [Alert and oriented x 3. No gross focal sensory or strength deficits.] PSYCH: Normal affect <Mahi Bee MD - Last Filed: 01/19/25 07:01> Course Course Emergency Course: 5-year-old female per the emergency department for evaluation for chest pain. Patient is afebrile with no leukocytosis hemoglobin 13.5. Patient had a negative dimer negative serial troponins EKG showing no evidence of acute ischemia. Chest x-ray shows no acute cardiopulmonary abnormality. Patient was updated results of workup patient prefers to be discharged have close outpatient follow-up with her primary care physician for additional outpatient cardiac testing. <Davi Carrington MD - Last Filed: 01/19/25 09:11> Vital Signs Vital signs: Vital Signs Temperature 98.1 F 01/19/25 04:48 Pulse Rate 89 01/19/25 04:48 Respiratory Rate 14 01/19/25 04:48 Blood Pressure 141/86 H 01/19/25 04:48 Pulse Oximetry 100 01/19/25 04:48 Oxygen Delivery Room Air 01/19/25 04:48 Temperature 98.1 F 01/19/25 04:48 Pulse Rate 73 01/19/25 09:00 Respiratory Rate 18 01/19/25 09:00 Blood Pressure 113/79 01/19/25 09:00 Pulse Oximetry 99 01/19/25 09:00 Oxygen Delivery Room Air 01/19/25 04:48 <Mahi Bee MD - Last Filed: 01/19/25 07:01> Vital Signs Temperature 98.1 F 01/19/25 04:48 Pulse Rate 89 01/19/25 04:48 Respiratory Rate 14 01/19/25 04:48 Blood Pressure 141/86 H 01/19/25 04:48 Pulse Oximetry 100 01/19/25 04:48 Oxygen Delivery Room Air 01/19/25 04:48 Temperature 98.1 F 01/19/25 04:48 Pulse Rate 73 01/19/25 09:00 Respiratory Rate 18 01/19/25 09:00 Blood Pressure 113/79 01/19/25 09:00 Pulse Oximetry 99 01/19/25 09:00 Oxygen Delivery Room Air 01/19/25 04:48 <Davi Carrington MD - Last Filed: 01/19/25 09:11> MDM - Chest Pain MDM Narrative Medical decision making narrative: ED COURSE AND MEDICAL DECISION MAKIN-year-old female presenting with chest pain that woke up from sleep. EKG done in triage negative for acute ischemic changes. Cardiac workup is initiated. EKG: Performed in triage and interpreted by me. Normal sinus rhythm. Rate 79. Normal axis. MI normal. QRS duration normal. QTc normal. No pathologic Q waves. No ST segment elevation or depression to suggest acute ischemia. No RV strain pattern. HEART score is 3 with no acute ischemic changes on EKG and negative troponin making ACS unlikely. Wells low risk with no DVT symptoms and negative D-dimer making PE unlikely. Presentation not consistent with dissection or aneurysm without radiation of pain or pulse deficits. CXR negative for mediastinal widening. No abdominal pain or signs of sepsis that would be concerning for esophageal perforation or mediastinitis. No cardiomegaly or JVD to suggest pericardial effusion/tamponade. On re-evaluation of the patient, she feels much better and is resting more comfortably. Chest x-ray on my independent interpretation without any obvious acute abnormality including no obvious consolidation, pneumothorax, effusions. Patient signed out to oncoming ER physician pending repeat troponin. <Mahi Bee MD - Last Filed: 01/19/25 07:01> Lab Data Result diagrams: 01/19/25 04:54 01/19/25 04:54 <Mahi Bee MD - Last Filed: 01/19/25 07:01> Labs: Lab Results 01/19/25 01/19/25 Range/Units 04:54 08:08 WBC 4.8 (4.5-10.0) K/mm3 RBC 4.44 (4.2-5.4) M/mm3 Hgb 13.5 (12.0-15.0) g/dL Hct 41.3 (37.0-47.0) % MCV 93.0 (80-100) fl MCH 30.4 (26-34) pg MCHC 32.7 (32-36) g/dl RDW 12.7 (11.5-14.5) % Plt Count 255 (150-375) k/mm3 MPV 9.1 (7.4-10.4) fl Immature Gran % (Auto) 0.0 (0-0.5) % Neut % (Auto) 20.9 L (45.5-73.1) % Lymph % (Auto) 63.3 H (18.3-44.2) % [place] % (Auto) 10.8 H (2.6-8.5) % Eos % (Auto) 4.4 (0-4.4) % Baso % (Auto) 0.6 (0.2-1.2) % Lymph # (Auto) 3.04 (0.9-3.2) K/mm3 [place] # (Auto) 0.5 (0.1-0.6) K/mm3 Eos # (Auto) 0.2 (0-0.3) K/mm3 Baso # (Auto) 0.0 (0.0-0.1) K/mm3 Abs Immat Gran (auto) 0.00 (0.00-0.031) K/mm3 Absolute Neuts (auto) 1.0 L (1.3-6.7) K/mm3 Absolute Nucleated RBC 0.000 (0.0-0.012) K/mm3 Nucleated RBC % 0.0 (0.0-0.2) % D-Dimer < 0.27 (<0.48) ug/mL Sodium 142 (137-145) mmol/L Potassium 3.6 (3.4-5.0) mmol/L Chloride 107 (98-107) mmol/L Carbon Dioxide 27 (22-30) mmol/L Anion Gap 8 (4-12) mmol/L BUN 23 H (7-17) mg/dL Creatinine 0.96 (0.7-1.0) mg/dL Estim Creat Clear Calc 41 ml/min Estimated GFR 59 (59 - ) Glucose 104 (65-110) mg/dL Calcium 9.7 (8.4-10.2) mg/dL Total Bilirubin 0.6 (0.2-1.3) mg/dL AST 28 (14-36) U/L ALT 11 (6-35) U/L Alkaline Phosphatase 67 (38-126) U/L Troponin I < 0.012 < 0.012 (0.000-0.034) ng/mL NT-Pro-B Natriuret Pep 27 (19.9-100) pg/mL Total Protein 8.1 (6.3-8.2) g/dL Albumin 4.3 (3.5-5.1) g/dL Lipase 340 H (23-300) U/L <Mahi Bee MD - Last Filed: 01/19/25 07:01> Lab Results 01/19/25 01/19/25 Range/Units 04:54 08:08 WBC 4.8 (4.5-10.0) K/mm3 RBC 4.44 (4.2-5.4) M/mm3 Hgb 13.5 (12.0-15.0) g/dL Hct 41.3 (37.0-47.0) % MCV 93.0 (80-100) fl MCH 30.4 (26-34) pg MCHC 32.7 (32-36) g/dl RDW 12.7 (11.5-14.5) % Plt Count 255 (150-375) k/mm3 MPV 9.1 (7.4-10.4) fl Immature Gran % (Auto) 0.0 (0-0.5) % Neut % (Auto) 20.9 L (45.5-73.1) % Lymph % (Auto) 63.3 H (18.3-44.2) % [place] % (Auto) 10.8 H (2.6-8.5) % Eos % (Auto) 4.4 (0-4.4) % Baso % (Auto) 0.6 (0.2-1.2) % Lymph # (Auto) 3.04 (0.9-3.2) K/mm3 [place] # (Auto) 0.5 (0.1-0.6) K/mm3 Eos # (Auto) 0.2 (0-0.3) K/mm3 Baso # (Auto) 0.0 (0.0-0.1) K/mm3 Abs Immat Gran (auto) 0.00 (0.00-0.031) K/mm3 Absolute Neuts (auto) 1.0 L (1.3-6.7) K/mm3 Absolute Nucleated RBC 0.000 (0.0-0.012) K/mm3 Nucleated RBC % 0.0 (0.0-0.2) % D-Dimer < 0.27 (<0.48) ug/mL Sodium 142 (137-145) mmol/L Potassium 3.6 (3.4-5.0) mmol/L Chloride 107 (98-107) mmol/L Carbon Dioxide 27 (22-30) mmol/L Anion Gap 8 (4-12) mmol/L BUN 23 H (7-17) mg/dL Creatinine 0.96 (0.7-1.0) mg/dL Estim Creat Clear Calc 41 ml/min Estimated GFR 59 (59 - ) Glucose 104 (65-110) mg/dL Calcium 9.7 (8.4-10.2) mg/dL Total Bilirubin 0.6 (0.2-1.3) mg/dL AST 28 (14-36) U/L ALT 11 (6-35) U/L Alkaline Phosphatase 67 (38-126) U/L Troponin I < 0.012 < 0.012 (0.000-0.034) ng/mL NT-Pro-B Natriuret Pep 27 (19.9-100) pg/mL Total Protein 8.1 (6.3-8.2) g/dL Albumin 4.3 (3.5-5.1) g/dL Lipase 340 H (23-300) U/L <Davi Carrington MD - Last Filed: 01/19/25 09:11> Discharge Plan Discharge Clinical Impression: Chest pain <Mahi Bee MD - Last Filed: 01/19/25 07:01> Patient Disposition: Home <Mahi Bee MD - Last Filed: 01/19/25 07:01> Condition: Stable <Mahi Bee MD - Last Filed: 01/19/25 07:01> Instructions: Chest Pain (ED) <Mahi Bee MD - Last Filed: 01/19/25 07:01> Additional Instructions: Please follow up with the senior power plant operator; pain returns, or if you have any shortness of breath or anything else concerning, please return to the emergency room. <Mahi Bee MD - Last Filed: 01/19/25 07:01> Patient Language: Belgian <Mahi Bee MD - Last Filed: 01/19/25 07:01> Prescriptions: No Action ibuprofen 600 mg tablet 600 mg PO TID PRN (Reason: pain) Qty: 20 0RF acetaminophen 500 mg capsule 1,000 mg PO Q6H PRN (Reason: pain) Qty: 20 0RF acetaminophen 500 mg tablet 1,000 mg PO TID PRN (Reason: perez) 7 Days Qty: 42 0RF ibuprofen 800 mg tablet 800 mg PO TID PRN (Reason: pain) 7 Days Qty: 21 0RF progesterone micronized 200 mg capsule hydroxychloroquine 200 mg tablet PO cyclobenzaprine 10 mg tablet 10 mg PO BID PRN (Reason: muscle spasm) Qty: 14 0RF <Mahi Bee MD - Last Filed: 01/19/25 07:01> Follow-up/Referrals: Ginna Blair MD [Physician] - 2 Days UNKNOWN,DOCTOR [Primary Care Provider] - <Mahi Bee MD - Last Filed: 01/19/25 07:01> Quality HEART score for chest pain patients History: slightly suspicious <Davi Carrington MD - Last Filed: 01/19/25 09:11> ECG: normal <Davi Carrington MD - Last Filed: 01/19/25 09:11> Age: > 45 and < 65 years <Davi Carrington MD - Last Filed: 01/19/25 09:11> Risk factors: 1 or 2 risk factors <Davi Carrington MD - Last Filed: 01/19/25 09:11> Troponin: < or = to 1x normal limit <Davi Carrington MD - Last Filed: 01/19/25 09:11> Heart score: 2 <Davi Carrington MD - Last Filed: 01/19/25 09:11>
[2025-01-19] MEDS: KETOROLAC 15 MG/ML VIAL (*BKC) IV PUSH (06:23)
--- NOTE | 2025-01-19 07:20 | ECG_ITS ---
Test Date: 2025-01-19 07:52:38 Measurements Intervals [place] Rate: 68 P: 51 KS: 184 QRS: 12 QRSD: 86 T: 37 QT: 396 QTc: 423 Interpretive Statements SINUS RHYTHM NORMAL ECG Compared to ECG 01/19/2025 04:47:49 No significant changes Electronically Signed On 01-19-2025 14:53:12 CDT by Frankie Morgan D.O.
[2025-01-19 08:36] LABS: Troponin I < 0.012 ng/mL (0.000-0.034)
== END 2025-01-19 09:04 | disposition home or self-care (01) ==
PROVIDERS: Emergency Provider Emergency Medicine
DX: R07.9 Chest pain, unspecified (principal); M32.9 Systemic lupus erythematosus, unspecified; R73.03 Prediabetes; Z87.891 Personal history of nicotine dependence; Z79.69 Long term (current) use of other immunomodulators and immunosuppressants
CPT/HCPCS: 36415; 71045; 80053; 83690; 83880; 84484; 85025; 85380; 93005; 96374; 99284; J1885